=== PATIENT | male | born 1975 | race American Indian/Alaskan Native ===

== ENCOUNTER 2022-02-28 19:24 | Inpatient (IN) | payer SELFPAY ==
--- NOTE | 2022-02-28 19:28 | Emergency Department Report ---
HPI - HPI HPI: Room 4 Patient is a 48-year-old male present with chief complaint of altered mental status. Per EMS family found the patient unresponsive on his bedroom floor. EMS was called to find the patient unresponsive and hypoglycemic with a glucose of 25. Patient was administered D50 and 4 mg of Narcan. Patient became arousable and slightly combative requiring physical restraints. EMS states the family reports the patient has a history of drug abuse ED Past Medical Hx - Surgical History Hx Open Heart Surgery: Yes - Family History Family history: no significant - Social History Smoking Status: Unknown if ever smoked ED Review of Systems ROS: Stated complaint: unresponsive Other details as noted in HPI Comment: Unobtainable due to pts medical conditions Physical Exam - Physical Exam Physical Exam: GENERAL: The patient is well-developed well-nourished male on stretcher appearing confused moving all 4 extremities requiring restraint by EMS and nursing. [] HEENT: Normocephalic. Atraumatic. Pupils 2 mm bilaterally NECK: Supple. No meningitic signs are noted. There is no adenopathy noted. CHEST/LUNGS: Clear to auscultation. There is no respiratory distress noted. HEART/CARDIOVASCULAR: Regular. There is tachycardia. There is no gallop rub or murmur. ABDOMEN: Abdomen is soft, nontender. Patient has normal bowel sounds. There is no abdominal distention. SKIN: There is no rash. There is no edema. There is no diaphoresis. NEURO: The patient is confused with mumbling speech and appears agitated requiring restraints by staff MUSCULOSKELETAL: There is no evidence of acute injury. ED Course - Reevaluation(s) Reevaluation #1: 02/28/22 21:24 Patient's SPO2 decreased from 94% on a nonrebreather to mid 80s on nonrebreather. There is no change with Narcan. Subsequently the decision to intubate using RSI was made - Intubation Sedative: Etomidate Mg Given: 20 Paralytic: Succinylcholine Mg Given: 100 Laryngoscope: fiberoptic video scope Size: 3 Assist Device Used: fiberoptic device ET Tube Size: 8 Tube Secured Depth (cm): 24 Tube Secured Location: lips Tube Placement Confirmation: visualized tube passing t, equal breath sounds bilat, no breath sounds over epi, confirmation by capnometr Patient Tolerated Procedure: well, no complications Intubation Complications: none ED Medical Decision Making - Lab Data Result diagrams: 02/28/22 19:20 02/28/22 19:20 Laboratory Tests 02/28/22 02/28/22 02/28/22 19:20 19:20 19:20 WBC 10.3 RBC 4.15 Hgb 14.5 Hct 43.4 MCV 105 H MCH 35 H MCHC 33 RDW 16.9 H Plt Count 466 H Lymph % (Auto) 9.2 L Whiteside % (Auto) 7.0 Eos % (Auto) 0.2 Baso % (Auto) 0.2 Lymph # (Auto) 0.9 L Whiteside # (Auto) 0.7 Eos # (Auto) 0.0 Baso # (Auto) 0.0 Seg Neutrophils % 83.4 H Seg Neutrophils # 8.6 H PT 13.0 INR 0.89 D-Dimer ABG pH ABG pCO2 ABG pO2 ABG HCO3 ABG O2 Saturation ABG O2 Content ABG Base Excess ABG Hemoglobin ABG Carboxyhemoglobin ABG Methemoglobin Oxyhemoglobin FiO2 Sodium 135 L Potassium 4.7 Chloride 93.6 L Carbon Dioxide 16 L Anion Gap 30 BUN 19 Creatinine 1.7 H Estimated GFR 43 BUN/Creatinine Ratio 11 Glucose 132 H Calcium 8.8 Total Bilirubin 0.30 AST 295 H ALT 48 Alkaline Phosphatase 189 H Total Creatine Kinase CK-MB (CK-2) CK-MB (CK-2) Rel Index Troponin T 0.055 H Total Protein 7.8 Albumin 4.5 Albumin/Globulin Ratio 1.4 Triglycerides 141 Cholesterol 170 LDL Cholesterol Direct 89 HDL Cholesterol 70 H Cholesterol/HDL Ratio 2.42 TSH Free T4 Salicylates Acetaminophen Urine Cocaine Screen Plasma/Serum Alcohol 02/28/22 02/28/22 02/28/22 19:20 19:20 19:20 WBC RBC Hgb Hct MCV MCH MCHC RDW Plt Count Lymph % (Auto) Whiteside % (Auto) Eos % (Auto) Baso % (Auto) Lymph # (Auto) Whiteside # (Auto) Eos # (Auto) Baso # (Auto) Seg Neutrophils % Seg Neutrophils # PT INR D-Dimer ABG pH ABG pCO2 ABG pO2 ABG HCO3 ABG O2 Saturation ABG O2 Content ABG Base Excess ABG Hemoglobin ABG Carboxyhemoglobin ABG Methemoglobin Oxyhemoglobin FiO2 Sodium Potassium Chloride Carbon Dioxide Anion Gap BUN Creatinine Estimated GFR BUN/Creatinine Ratio Glucose Calcium Total Bilirubin AST ALT Alkaline Phosphatase Total Creatine Kinase CK-MB (CK-2) CK-MB (CK-2) Rel Index Troponin T Total Protein Albumin Albumin/Globulin Ratio Triglycerides Cholesterol LDL Cholesterol Direct HDL Cholesterol Cholesterol/HDL Ratio TSH 1.100 Free T4 1.06 Salicylates < 0.3 L Acetaminophen Urine Cocaine Screen Plasma/Serum Alcohol < 0.01 02/28/22 02/28/22 02/28/22 19:20 20:00 22:00 WBC RBC Hgb Hct MCV MCH MCHC RDW Plt Count Lymph % (Auto) Whiteside % (Auto) Eos % (Auto) Baso % (Auto) Lymph # (Auto) Whiteside # (Auto) Eos # (Auto) Baso # (Auto) Seg Neutrophils % Seg Neutrophils # PT INR D-Dimer ABG pH 7.170 L* ABG pCO2 61.5 ABG pO2 392.6 H ABG HCO3 22.0 ABG O2 Saturation 99.5 H ABG O2 Content 22.1 ABG Base Excess -7.6 L ABG Hemoglobin 15.8 ABG Carboxyhemoglobin 3.8 ABG Methemoglobin 0.7 Oxyhemoglobin 95.1 FiO2 100 Sodium Potassium Chloride Carbon Dioxide Anion Gap BUN Creatinine Estimated GFR BUN/Creatinine Ratio Glucose Calcium Total Bilirubin AST ALT Alkaline Phosphatase Total Creatine Kinase 395 H CK-MB (CK-2) 10.3 H CK-MB (CK-2) Rel Index 2.6 Troponin T Total Protein Albumin Albumin/Globulin Ratio Triglycerides Cholesterol LDL Cholesterol Direct HDL Cholesterol Cholesterol/HDL Ratio TSH Free T4 Salicylates Acetaminophen 5.0 L Urine Cocaine Screen Plasma/Serum Alcohol 02/28/22 02/28/22 Unknown Unknown WBC RBC Hgb Hct MCV MCH MCHC RDW Plt Count Lymph % (Auto) Whiteside % (Auto) Eos % (Auto) Baso % (Auto) Lymph # (Auto) Whiteside # (Auto) Eos # (Auto) Baso # (Auto) Seg Neutrophils % Seg Neutrophils # PT INR D-Dimer 649.01 H ABG pH ABG pCO2 ABG pO2 ABG HCO3 ABG O2 Saturation ABG O2 Content ABG Base Excess ABG Hemoglobin ABG Carboxyhemoglobin ABG Methemoglobin Oxyhemoglobin FiO2 Sodium Potassium Chloride Carbon Dioxide Anion Gap BUN Creatinine Estimated GFR BUN/Creatinine Ratio Glucose Calcium Total Bilirubin AST ALT Alkaline Phosphatase Total Creatine Kinase CK-MB (CK-2) CK-MB (CK-2) Rel Index Troponin T Total Protein Albumin Albumin/Globulin Ratio Triglycerides Cholesterol LDL Cholesterol Direct HDL Cholesterol Cholesterol/HDL Ratio TSH Free T4 Salicylates Acetaminophen Urine Cocaine Screen Presumptive positive Plasma/Serum Alcohol - EKG Data -: EKG Interpreted by Me EKG shows normal: sinus rhythm, axis Rate: tachycardia (100 beats per) - EKG Data When compared to previous EKG there are: previous EKG unavailable Interpretation: nonspecific ST-T wave melanie (Flattened T waves lead aVL) - Radiology Data Radiology results: pending (VQ scan, CT head), report reviewed (Chest x-ray #1, chest x-ray #2), image reviewed (Chest x-ray #1, chest x-ray #2) interpreted by me: Chest x-ray-no definite focal infiltrates, no pneumothorax Chest x-ray #2-ET tube in appropriate position. No pneumothorax, no focal infiltrate [address] [address] XRay Report Signed Patient: Mike Rincon MR#: [id number] 90 : 01/17/1974 Acct:[id number] Age/Sex: 48 / M ADM Date: 02/28/22 Loc: ED Attending Dr: Ordering Physician: ZUNILDA PAYNE MD Date of Service: 02/28/22 Procedure(s): XR chest 1V ap Accession Number(s): [id number] cc: ZUNILDA PAYNE MD Fluoro Time In Minutes: CHEST 1 VIEW 02/28/2022 6:41 PM INDICATION / CLINICAL INFORMATION: Hypoxia. Unresponsive. COMPARISON: None available. FINDINGS: SUPPORT DEVICES: N one. HEART / MEDIASTINUM: Heart is normal size. Median sternotomy wires are present. LUNGS / PLEURA: No significant pulmonary or pleural abnormality. No pneumothorax. ADDITIONAL FINDINGS: No significant additional findings. IMPRESSION: 1. No acute findings. Signer Name: Eligio Bloom MD Signed: 09/2022 7:42 PM Workstation Name: [id number] Transcribed By: DT Dictated By: Axel Bloom MD Electronically Authenticated By: Axel Bloom MD Signed Date/Time: 02/28/221941 DD/ 40 TD/TT: [address] [address] XRay Report Signed Patient: Mike Rincon MR#: [id number] 90 : 01/17/1974 Acct:[id number] Age/Sex: 48 / M ADM Date: 02/28/22 Loc: ED Attending Dr: Ordering Physician: ZUNILDA PAYNE MD Date of Service: 02/28/22 Procedure(s): XR chest 1V ap Accession Number(s): [id number] cc: ZUNILDA PAYNE MD Fluoro Time In Minutes: CHEST 1 VIEW 02/28/2022 9:28 PM INDICATION / CLINICAL INFORMATION: S/p intubation. COMPARISON: 02/28/22 7:27 PM FINDINGS: SUPPORT DEVICES: Endotracheal tube has been placed with the tip 6 cm above the francisca. HEART / MEDIASTINUM: No acute abnormality. Median sternotomy wires are unchanged. LUNGS / PLEURA: No significant pulmonary or pleural abnormality. No pneumothorax. ADDITIONAL FINDINGS: No significant additional findings. IMPRESSION: 1. Endotracheal tube in expected position. Signer Name: Eligio Bloom MD Signed: 02/28/2022 9:41 PM Workstation Name: [id number] Transcribed By: DT Dictated By: Axel Bloom MD Electronically Authenticated By: Axel Bloom MD Signed Date/Time: 02/28/222140 DD/ 40 TD/TT: - Differential Diagnosis AMS, ICH, intoxication, overdose Critical care attestation.: If time is entered above; I have spent that time in minutes in the direct care of this critically ill patient, excluding procedure time. ED Disposition Clinical Impression: Altered mental status, Respiratory failure, Hypoxia, Cocaine abuse Disposition: ADMITTED INPATIENT Is pt being admited?: Yes Does the pt Need Aspirin: Yes Condition: Undetermined Referrals: AHMET SAN MD [Primary Care Provider] - 3-5 Days Time of Disposition: 23:53 (Case discussed with hospitalist (Dr Wright))
[2022-02-28 19:40] LABS: Basophils % (Auto) 0.2 % (0.0-1.8); Eosinophils % (Auto) 0.2 % (0.0-4.3); Hematocrit 43.4 % (35.5-45.6); Hemoglobin 14.5 gm/dl (11.8-15.2); Lymphocytes # (Auto) 0.9 K/mm3 (1.2-5.4); Lymphocytes % (Auto) 9.2 % (13.4-35.0); Mean Corpuscular HGB Conc 33 % (32-34); Mean Corpuscular Volume 105 fl (84-94); Monocytes # (Auto) 0.7 K/mm3 (0.0-0.8); Platelet Count 466 K/mm3 (140-440); Red Blood Count 4.15 M/mm3 (3.65-5.03); Red Cell Distribution Width 16.9 % (13.2-15.2)
--- NOTE | 2022-02-28 19:47 | XRay Report ---
CHEST 1 VIEW 02/28/2022 6:41 PM INDICATION / CLINICAL INFORMATION: Hypoxia. Unresponsive. COMPARISON: None available. FINDINGS: SUPPORT DEVICES: None. HEART / MEDIASTINUM: Heart is normal size. Median sternotomy wires are present. LUNGS / PLEURA: No significant pulmonary or pleural abnormality. No pneumothorax. ADDITIONAL FINDINGS: No significant additional findings. IMPRESSION: 1. No acute findings. Signer Name: Eligio Bloom MD Signed: 02/28/2022 7:42 PM Workstation Name: [id number]
[2022-02-28 19:50] LABS: INR 0.89 (0.87-1.13)
[2022-02-28 19:56] LABS: Albumin 4.5 g/dL (3.9-5); Calcium 8.8 mg/dL (8.4-10.2)
[2022-02-28 20:04] LABS: Free T4 (Free Thyroxine) 1.06 ng/dL (0.76-1.46)
[2022-02-28 20:16] LABS: Chol/HDL Ratio 2.42 %
[2022-02-28 20:16] LABS: Creatine Kinase MB 10.3 ng/mL (0.0-4.0)
[2022-02-28] MEDS ORDERED: LIDOCAINE PF 100 MG/5 ML (CARDIAC SYRINGE) IV ONE (21:13)
[2022-02-28] MEDS ORDERED: ETOMIDATE 20 MG/10 ML INJ IV ONE ×2 (21:14→21:15)
[2022-02-28] MEDS ORDERED: SUCCINYLCHOLINE CHLORIDE 200 MG/10 ML INJ MDV IV ONE (21:15)
[2022-02-28] MEDS ORDERED: SUCCINYLCHOLINE CHLORIDE 200 MG/10 ML INJ MDV ONE (21:15)
[2022-02-28] MEDS ORDERED: ROCURONIUM 50 MG/5 ML INJ IV ONE (21:15)
--- NOTE | 2022-02-28 21:46 | XRay Report ---
CHEST 1 VIEW 02/28/2022 9:28 PM INDICATION / CLINICAL INFORMATION: S/p intubation. COMPARISON: 02/28/22 7:27 PM FINDINGS: SUPPORT DEVICES: Endotracheal tube has been placed with the tip 6 cm above the francisca. HEART / MEDIASTINUM: No acute abnormality. Median sternotomy wires are unchanged. LUNGS / PLEURA: No significant pulmonary or pleural abnormality. No pneumothorax. ADDITIONAL FINDINGS: No significant additional findings. IMPRESSION: 1. Endotracheal tube in expected position. Signer Name: Eligio Bloom MD Signed: 02/28/2022 9:41 PM Workstation Name: [id number]
[2022-02-28 22:09] LABS: ABG Base Excess -7.6 mmol/L (-2.0-3.0); ABG Methemoglobin 0.7 % (0.0-1.5); ABG Oxygen Saturation 99.5 % (95.0-99.0); ABG PCO2 61.5 mm Hg
[2022-02-28 22:20] LABS: ABG PH 7.17 pH Units (7.350-7.450); ABG PO2 392.6 mm Hg (80.0-90.0)
[2022-02-28 23:27] LABS: Amphetamine Screen,Urine PRESUMPTIVE NEGATIVE; Benzodiazepines Screen,Urine PRESUMPTIVE NEGATIVE; Cannabinoid Screen,Urine PRESUMPTIVE NEGATIVE; Cocaine Screen,Urine PRESUMPTIVE POSITIVE; Methadone Screen,Urine PRESUMPTIVE NEGATIVE; Opiate Screen,Urine PRESUMPTIVE NEGATIVE
[2022-02-28] MEDS ORDERED: LORazepam 2 MG/ML VIAL IV ONE (23:29)
[2022-02-28] MEDS ORDERED: MIDAZOLAM 2 MG/2 ML INJ IV PRN (23:30)
[2022-02-28] MEDS ORDERED: MIDAZOLAM/NS Drip 100mg/100ml 100 MG/100 ML BAG IV SCH (23:45)
[2022-02-28 23:52] LABS: ABG Base Excess -8.3 mmol/L (-2.0-3.0); ABG HCO3 18.5 mmol/L (20.0-26.0); ABG Methemoglobin 0.7 % (0.0-1.5); ABG PCO2 42.6 mm Hg; ABG PH 7.255 pH Units (7.350-7.450); ABG PO2 119.5 mm Hg (80.0-90.0)
[2022-03-01] MEDS ORDERED: ACETAMINOPHEN 650 MG RECT SUPP PR PRN (00:07)
[2022-03-01] MEDS ORDERED: MORPHINE 2 MG/1 ML INJ IV PRN (00:07)
[2022-03-01] MEDS ORDERED: ONDANSETRON 4 MG/2 ML INJ IV PRN (00:07)
[2022-03-01] MEDS ORDERED: MORPHINE 4 MG/1 ML INJ IV PRN (00:07)
[2022-03-01] MEDS ORDERED: MAGNESIUM HYDROXIDE (MOM) ORAL LIQD UDC PO PRN (00:07)
--- NOTE | 2022-03-01 00:20 | History and Physical Report ---
History of Present Illness Date of examination: 03/01/22 Date of admission: 03/01/2022 Chief complaint: Altered mental status History of present illness: 47-year-old male with no significant past medical history brought into the emergency room today via EMS for changes in mental status. Patient was said to have been found by family at home unresponsive. EMS was therefore called. Blood glucose was found to be 25, patient was admitted D50 and Narcan 4 mg. Patient became more arousable and combative. According to family, patient has known history of drug abuse. Upon arrival in the emergency room, patient was found to be febrile back with and had to be restrained. Patient later became hypoxic and placed on nonrebreather and subsequently had to be intubated. Work-up in the emergency room today, labs reveals a D-dimer 649, creatinine of 1.7, troponin of 0.055, UDS was positive for cocaine. Chest x-ray was unremarkable. Head CT scan also unremarkable. VQ scan was low probability for pulmonary embolism. Past History Past Medical History: No medical history Past Surgical History: No surgical history Social history: other (History of cocaine abuse) Family history: no significant family history Medications and Allergies Allergies Allergy/AdvReac Type Severity Reaction Status Date / Time No Known Allergies Allergy Verified 02/28/22 21:15 Active Meds: Active Medications MIDAZOLAM/NS Drip 100mg/100ml (Midazolam/Ns Drip 100mg/100ml) 100 mg in 100 mls @ 1 mls/hr IV TITR MARTINEZ; Protocol Midazolam HCl (Midazolam 2 Mg/2 Ml Inj) 2 mg IV Q10MIN PRN PRN Reason: Sedation Last Admin: 02/28/22 23:35 Dose: 2 mg Review of Systems ROS unobtainable: due to mental status Exam - Constitutional Vitals: Temp Pulse Resp BP Pulse Ox 98 H 26 H 138/98 99 02/28/22 22:30 02/28/22 22:30 02/28/22 22:30 02/28/22 22:30 General appearance: Present: other (Intubated and sedated) - EENT Eyes: Present: PERRL, EOM intact. Absent: scleral icterus ENT: hearing intact, clear oral mucosa, dentition normal - Neck Neck: Present: supple, normal ROM - Respiratory Respiratory effort: normal, other (Currently intubated and sedated) Respiratory: bilateral: CTA - Cardiovascular Rhythm: regular Heart Sounds: Present: S1 & S2. Absent: gallop, systolic murmur, diastolic murmur, rub, click - Extremities Extremities: no ischemia, pulses intact, pulses symmetrical, No edema, normal temperature, Full ROM Peripheral Pulses: within normal limits - Abdominal General gastrointestinal: Present: soft, non-tender, non-distended, normal bowel sounds. Absent: mass - Integumentary Integumentary: Present: clear, warm, dry, normal turgor. Absent: rash - Musculoskeletal Musculoskeletal: other (Intubated sedated) - Psychiatric Psychiatric: cooperative - Neurologic Neurologic: other (Intubated and sedated) HEART Score - HEART Score Troponin: Troponin T 0.055 ng/mL (0.00-0.029) H 02/28/22 19:20 Results - Labs CBC & Chem 7: 02/28/22 19:20 02/28/22 19:20 Labs: Abnormal lab results 02/28/22 02/28/22 02/28/22 Range/Units 19:20 19:20 19:20 MCV 105 H (84-94) fl MCH 35 H (28-32) pg RDW 16.9 H (13.2-15.2) % Plt Count 466 H (140-440) K/mm3 Lymph % (Auto) 9.2 L (13.4-35.0) % Lymph # (Auto) 0.9 L (1.2-5.4) K/mm3 Seg Neutrophils % 83.4 H (40.0-70.0) % Seg Neutrophils # 8.6 H (1.8-7.7) K/mm3 D-Dimer (0-234) ng/mlDDU ABG pH (7.350-7.450) pH Units ABG pO2 (80.0-90.0) mm Hg ABG HCO3 (20.0-26.0) mmol/L ABG O2 Saturation (95.0-99.0) % ABG Base Excess (-2.0-3.0) mmol/L Oxyhemoglobin (95.0-99.0) % Sodium 135 L (137-145) mmol/L Chloride 93.6 L (98-107) mmol/L Carbon Dioxide 16 L (22-30) mmol/L Creatinine 1.7 H (0.8-1.3) mg/dL Glucose 132 H (75-100) mg/dL AST 295 H (5-40) units/L Alkaline Phosphatase 189 H (35-129) units/L Total Creatine Kinase (55-170) units/L CK-MB (CK-2) (0.0-4.0) ng/mL Troponin T 0.055 H (0.00-0.029) ng/mL HDL Cholesterol 70 H (40-59) mg/dL Salicylates < 0.3 L (2.8-20.0) mg/dL Acetaminophen (10.0-30.0) ug/mL 02/28/22 02/28/22 02/28/22 Range/Units 19:20 20:00 22:00 MCV (84-94) fl MCH (28-32) pg RDW (13.2-15.2) % Plt Count (140-440) K/mm3 Lymph % (Auto) (13.4-35.0) % Lymph # (Auto) (1.2-5.4) K/mm3 Seg Neutrophils % (40.0-70.0) % Seg Neutrophils # (1.8-7.7) K/mm3 D-Dimer (0-234) ng/mlDDU ABG pH 7.170 L* (7.350-7.450) pH Units ABG pO2 392.6 H (80.0-90.0) mm Hg ABG HCO3 (20.0-26.0) mmol/L ABG O2 Saturation 99.5 H (95.0-99.0) % ABG Base Excess -7.6 L (-2.0-3.0) mmol/L Oxyhemoglobin (95.0-99.0) % Sodium (137-145) mmol/L Chloride (98-107) mmol/L Carbon Dioxide (22-30) mmol/L Creatinine (0.8-1.3) mg/dL Glucose (75-100) mg/dL AST (5-40) units/L Alkaline Phosphatase (35-129) units/L Total Creatine Kinase 395 H (55-170) units/L CK-MB (CK-2) 10.3 H (0.0-4.0) ng/mL Troponin T (0.00-0.029) ng/mL HDL Cholesterol (40-59) mg/dL Salicylates (2.8-20.0) mg/dL Acetaminophen 5.0 L (10.0-30.0) ug/mL 02/28/22 02/28/22 Range/Units 23:40 Unknown MCV (84-94) fl MCH (28-32) pg RDW (13.2-15.2) % Plt Count (140-440) K/mm3 Lymph % (Auto) (13.4-35.0) % Lymph # (Auto) (1.2-5.4) K/mm3 Seg Neutrophils % (40.0-70.0) % Seg Neutrophils # (1.8-7.7) K/mm3 D-Dimer 649.01 H (0-234) ng/mlDDU ABG pH 7.255 L (7.350-7.450) pH Units ABG pO2 119.5 H (80.0-90.0) mm Hg ABG HCO3 18.5 L (20.0-26.0) mmol/L ABG O2 Saturation (95.0-99.0) % ABG Base Excess -8.3 L (-2.0-3.0) mmol/L Oxyhemoglobin 94.7 L (95.0-99.0) % Sodium (137-145) mmol/L Chloride (98-107) mmol/L Carbon Dioxide (22-30) mmol/L Creatinine (0.8-1.3) mg/dL Glucose (75-100) mg/dL AST (5-40) units/L Alkaline Phosphatase (35-129) units/L Total Creatine Kinase (55-170) units/L CK-MB (CK-2) (0.0-4.0) ng/mL Troponin T (0.00-0.029) ng/mL HDL Cholesterol (40-59) mg/dL Salicylates (2.8-20.0) mg/dL Acetaminophen (10.0-30.0) ug/mL Assessment and Plan - Patient Problems (1) Altered mental status Current Visit: Yes Status: Acute Plan to address problem: Etiology is unclear. Possibly secondary to drug abuse. Will monitor mental status. Patient currently intubated and sedated. (2) Cocaine abuse Current Visit: Yes Status: Acute Plan to address problem: Patient has known history of cocaine abuse. Will counseling center manager against illicit drug use prior to discharge. (3) Respiratory failure Current Visit: Yes Status: Acute Plan to address problem: Patient was found to be hypoxic upon arrival in the emergency room. He was subsequently intubated and sedated. Will await further evaluation by superintendent seed mill. We will continue to monitor oxygen saturation and ABG. (4) TABATHA (acute kidney injury) Current Visit: Yes Status: Acute Plan to address problem: Will continue on IV fluid hydration and monitor chemistry. (5) DVT prophylaxis Current Visit: Yes Status: Acute Plan to address problem: Patient placed on subcutaneous heparin. (6) Full code status Current Visit: Yes Status: Acute Plan to address problem: Patient is full code.
--- NOTE | 2022-03-01 00:28 | Nuclear Medicine Report ---
NUCLEAR MEDICINE PERFUSION LUNG SCAN INDICATION / CLINICAL INFORMATION: Hypoxia. TECHNIQUE: 5.2 mCi of Tc-99m MAA were given by IV. COMPARISON: Chest radiograph dated 02/28/2022. FINDINGS: PERFUSION: No significant perfusion defects. ADDITIONAL FINDINGS: None. IMPRESSION: 1. Low probability for pulmonary embolism. Signer Name: Juanito Eagle DO Signed: 03/01/2022 12:23 AM Workstation Name: [id number]
--- NOTE | 2022-03-01 01:17 | Cat Scan Report ---
CT HEAD WITHOUT CONTRAST INDICATION / CLINICAL INFORMATION: Altered Mental Status. TECHNIQUE: All CT scans at this location are performed using CT dose reduction for ALARA by means of automated exposure control. COMPARISON: None available. FINDINGS: HEMORRHAGE: None. EXTRA-AXIAL SPACES: Normal in size and morphology for the patient's age. VENTRICULAR SYSTEM: Normal in size and morphology for the patient's age. CEREBRAL PARENCHYMA: No significant abnormality. No acute territorial infarct. MIDLINE SHIFT / HERNIATION: None. CEREBELLUM / BRAINSTEM: No significant abnormality. ORBITS: Normal as visualized SOFT TISSUES: No significant abnormality. SKULL: No significant abnormality. PARANASAL SINUSES / MASTOID AIR CELLS: Normal as visualized ADDITIONAL FINDINGS: None. IMPRESSION: 1. No acute intracranial abnormality. Signer Name: Juanito Eagle DO Signed: 03/01/2022 1:13 AM Workstation Name: [id number]
[2022-03-01] MEDS: SODIUM CHLORIDE 0.9% 1000 ML 1,000 ML IV SCH ×2 (03:05→10:23)
[2022-03-01] MEDS ORDERED: fentaNYL 100 MCG/2 ML INJ IV PRN (07:49)
[2022-03-01] MEDS ORDERED: fentaNYL DRIP Premix 2,000 MCG/100 ML BAG IV SCH (08:00)
[2022-03-01 08:31] LABS: ABG HCO3 19.3 mmol/L (20.0-26.0); ABG Methemoglobin 0.6 % (0.0-1.5); ABG PCO2 37.3 mm Hg; ABG PH 7.331 pH Units (7.350-7.450); ABG PO2 79.7 mm Hg (80.0-90.0)
[2022-03-01] MEDS ORDERED: DEXTROSE 50% IN WATER (25GM) 50 ML SYRINGE IV PRN (09:03)
--- NOTE | 2022-03-01 09:29 | XRay Report ---
CHEST 1 VIEW 03/01/2022 8:18 AM INDICATION / CLINICAL INFORMATION: Respiratory Failure-Intubated. COMPARISON: 02/28/2022 FINDINGS: SUPPORT DEVICES: Stable, satisfactory device positioning. HEART / MEDIASTINUM: Stable. LUNGS / PLEURA: No significant pulmonary or pleural abnormality. No pneumothorax. ADDITIONAL FINDINGS: No significant additional findings. IMPRESSION: 1. No acute findings. Signer Name: Mateo Waggoner MD Signed: 03/01/2022 9:25 AM Workstation Name: [id number]
[2022-03-01] MEDS: FAMOTIDINE 20 MG/2 ML INJ IV SCH (09:43)
[2022-03-01 10:16] LABS: Creatine Kinase MB 14.2 ng/mL (0.0-4.0)
--- NOTE | 2022-03-01 10:16 | Event Note ---
<JUANITO CURTIS - Last Filed: 03/01/22 14:36> Date: 03/01/22 This is a 47-year-old male with history of drug abuse and possible open heart surgery 25 years admitted for AMS and acute hypoxic respiratory failure requiring ventilatory support Patient seen and examined at the bedside. Intubated, off sedation this am. Remains lethargic but arousable, following simple commands. Keep sedation off for now, plan for possible PSV trial when more awake. Patient hypoglycemic this am, IVF switched to D5NS, BG check Q4hrs. Elevated TroponinX2, Cardiology c onsulted for NSTEMI, continue to trend cardiac enzymes. Nephrology is also following for TABATHA, continue IVF rehydration for now. Assessment and Plan #Acute Hypoxic Respiratory Failure - most likely due to drug abuse, found unresponsive at home, UDS +cocaine - Patient was hypoxic in the ED, SPO2 in the 80s on NRB - Intubated in the ED on 03/01 - Vent setting:PRVC-40%, 8,26,450 - AM ABG noted - CCM consulted, appreciate recommendations - VAP bundle addressed - Aspiration precaution HOB above 30 - Daily SBT and SAT trials as tolerated - Daily ABG and CXR - Continue SPO2 monitoring for SPO2 goal above 92% #Acute Toxic Encephalopathy #Cocaine Abuse - Found unresponsive at home by family - UDS +cocaine - CT Brain/brain with no acute intracranial abnormality. - Patient now intubated, off sedation. Arousable and following commands - Plan for PSV trial once more awake - Keep sedation off for now - Avoid benzodiazepine to reduce the possibility of delirium - PRN analgesia for CPOT greater than 3 - Maintenance of sleep-wake cycle #NSTEMI - Presented with elevated troponin - EKG reviewed with ST, HR in the 100s, no significant ST changes - Cardiology consulted - Continue to trend cardiac enzyme - Continue Heparin SubQ for VTE proh #Acute Kidney Injury(TABATHA) #Hyponatremia - Vasomotor Nephropathy vs pre-renal - Nephrology consulted, appreciated recommendations - Urine lytes pending - Continue current IVF rehydration - Strict intake and output - Avoid nephrotoxic medications; Renally dose medications - Monitor and replace electrolytes as needed #Hypoglycemia - Per EMS BG was in the 20s in the field s/p D50w - Patient still hypoglycemic this am - IVF switched to D5NS - Continue Hypoglycemic protocol - BG check Q4hrs - if patient not extubated today, will initiate enteral nutrition - Avoid hypoglycemia #Elevated D-Dimer - VQ scan was low probability for pulmonary embolism - Heparin subQ for VTE proph #GI/DVT Prophylaxis - PPI- Pepcid - Heparin subQ - SCDs to bilateral lower extremities while in bed <CRISTOPHER KERN - Last Filed: 03/02/22 08:34> I saw and evaluated the patient. I agree with the findings and the plan of care as documented in the Nurse Practitioner's~note, with the following corrections and additions.
[2022-03-01 10:17] LABS: Calcium 8.6 mg/dL (8.4-10.2)
--- NOTE | 2022-03-01 11:16 | Consultation ---
History of Present Illness - History of Present Illness Thank you for the consultation ! Patient was evaluated today, My assessment and plan are as follows #Renal failure in a patient who is being admitted here with altered mental status hypoglycemia metabolic acidosis and urine drug screen positive for cocaine etiology of renal failure appears to be complex, needs full work-up for renal failure there is no urgent or emergent indication for renal placement therapy, #Metabolic acidosis appears to be correcting we will check lactic acid level as well as osmolality, #Hypoglycemia of unclear etiology, work-up in progress, urine drug screen was positive for cocaine, If you have any question in regards to this patient renal care please feel free to contact me at [phone] Author: Jose F Rodrigez M.D. [facility], [address] [place] [address] Tel; [phone] [facility] History of present illness Patient is a 47-year-old male who has been admitted here with altered mental status and was found unresponsive on the bathroom floor, noted to be hypoglycemic with a blood sugar of 25, patient did arouse with IV dextrose given upon admission was noted to have a creatinine 1.7 bicarbonate 16 sodium 135, as of today patient's creatinine is 1.8 stable bicarbonate is much better at 19, troponin is elevated at 0.055 with borderline elevation of the CK which is 979, ABG pH is 7.3 with a PO2 of 79 bicarbonate 19 Past medical history: Current allergies: Reviewed from the current chart Social history: Reviewed from the current chart Family history: Reviewed from the current chart Review of system: Positive for All other review of systems negative Physical examination Vitals: Reviewed General: No acute distress HEENT: Oral mucosa moist no pallor or icterus Neck: Supple without any JVD thyromegaly or nodular mass Chest: Clear to auscultation Heart: Regular rate and rhythm S1-S2 heard no S3-S4 Abdomen: Soft nontender, bowel sounds present no renal bruit no suprapubic masses no CVA tenderness noted Extremity: Minimal edema dry skin no peripheral cyanosis Endocrine: Thyroid not enlarged Psychiatric: No agitation and aggression noted Musculoskeletal: No joint effusion noted Labs and x-rays: Reviewed from this admission Past History Past Medical History: No medical history Past Surgical History: No surgical history Social history: other (History of cocaine abuse) Family history: no significant family history Medications and Allergies Allergies Allergy/AdvReac Type Severity Reaction Status Date / Time No Known Allergies Allergy Verified 02/28/22 21:15 Active Meds: Active Medications Acetaminophen (Acetaminophen 650 Mg Rect Supp) 650 mg [place] Q6H PRN PRN Reason: Pain MILD(1-3)/Fever >100.5/RAINEY Dextrose (Dextrose 50% In Water (25gm) 50 Ml Syringe) 50 ml IV Q30MIN PRN; Protocol PRN Reason: Hypoglycemia Last Admin: 03/01/22 09:18 Dose: 15 ml Famotidine (Famotidine 20 Mg/2 Ml Inj) 20 mg IV QDAY MARTINEZ Last Admin: 03/01/22 09:43 Dose: 20 mg Fentanyl (Fentanyl 100 Mcg/2 Ml Inj) 50 mcg IV Q10MIN PRN PRN Reason: ANALGESIA Heparin Sodium (Porcine) (Heparin 5,000 Unit/1 Ml Vial) 5,000 unit SUB-Q Q8HR MARTINEZ Propofol (Diprivan 10 Mg/Ml) 1,000 mg in 100 mls @ 1.362 mls/hr IV TITR MARTINEZ; Protocol Fentanyl Citrate (Fentanyl Drip Premix) 2,000 mcg in 100 mls @ 2.27 mls/hr IV TITR MARTINEZ; Protocol Dextrose/Sodium Chloride (D5ns) 1,000 mls @ 50 mls/hr IV DIRECT MARTINEZ Magnesium Hydroxide (Magnesium Hydroxide (Mom) Oral Liqd Udc) 30 ml PO Q4H PRN PRN Reason: Constipation Ondansetron HCl (Ondansetron 4 Mg/2 Ml Inj) 4 mg IV Q8H PRN PRN Reason: Nausea And Vomiting Sodium Chloride (Sodium Chloride 0.9% 10 Ml Flush Syringe) 10 ml IV BID [facility] Last Admin: 03/01/22 09:43 Dose: 10 ml Sodium Chloride (Sodium Chloride 0.9% 10 Ml Flush Syringe) 10 ml IV PRN PRN PRN Reason: LINE FLUSH Exam - Vital Signs Vital signs: Vital Signs Pulse Resp BP Pulse Ox 100 H 20 120/79 95 02/28/22 19:16 02/28/22 19:16 02/28/22 19:16 02/28/22 19:16 Results - Lab Results 02/28/22 19:20 03/01/22 09:42 Most recent lab results ABG pH 7.331 pH Units (7.350-7.450) L 05/13/22 08:18 ABG pCO2 37.3 mm Hg 03/01/22 08:18 ABG pO2 79.7 mm Hg (80.0-90.0) L 03/01/22 08:18 ABG HCO3 19.3 mmol/L (20.0-26.0) L 03/01/22 08:18 ABG O2 Saturation 96.0 % (95.0-99.0) 03/01/22 08:18 Calcium 8.6 mg/dL (8.4-10.2) 03/01/22 09:42
[2022-03-01 11:35] LABS: Uric Acid 10.5 mg/dL (3.5-7.6)
[2022-03-01] MEDS ORDERED: D5W/0.9% NACL 1,000 ML IV SCH (12:00)
[2022-03-01 12:05] LABS: Bacteria,Urine 1+ /HPF (Negative); Bilirubin,Urine NEG (Negative); Blood,Urine MOD (Negative); Color,Urine Yellow (Yellow); Hyaline Casts,Urine 18 /LPF; Mucus,Urine FEW /HPF; Urobilinogen,Urine < 2.0 mg/dL (<2.0)
--- NOTE | 2022-03-01 12:11 | Consultation ---
History of Present Illness Consult date: 03/01/22 Requesting physician: ZUNILDA PAYNE Reason for consult: other (Acute Hypoxemic Respiratory Failure; AMS) History of present illness: PULMONARY/CCM CONSULT NOTE (Full dictation # [id number]) Please see dictated notes for full details Past History Past Medical History: No medical history Past Surgical History: No surgical history Social history: other (History of cocaine abuse) Family history: no significant family history Medications and Allergies Allergies Allergy/AdvReac Type Severity Reaction Status Date / Time No Known Allergies Allergy Verified 02/28/22 21:15 Active Meds: Active Medications Acetaminophen (Acetaminophen 650 Mg Rect Supp) 650 mg [place] Q6H PRN PRN Reason: Pain MILD(1-3)/Fever >100.5/RAINEY Last Admin: 03/01/22 11:50 Dose: 650 mg Dextrose (Dextrose 50% In Water (25gm) 50 Ml Syringe) 50 ml IV Q30MIN PRN; Protocol PRN Reason: Hypoglycemia Last Admin: 03/01/22 09:18 Dose: 15 ml Famotidine (Famotidine 20 Mg/2 Ml Inj) 20 mg IV QDAY MARTINEZ Last Admin: 03/01/22 09:43 Dose: 20 mg Fentanyl (Fentanyl 100 Mcg/2 Ml Inj) 50 mcg IV Q10MIN PRN PRN Reason: ANALGESIA Heparin Sodium (Porcine) (Heparin 5,000 Unit/1 Ml Vial) 5,000 unit SUB-Q Q8HR MARTINEZ Propofol (Diprivan 10 Mg/Ml) 1,000 mg in 100 mls @ 1.362 mls/hr IV TITR MARTINEZ; Protocol Fentanyl Citrate (Fentanyl Drip Premix) 2,000 mcg in 100 mls @ 2.27 mls/hr IV TITR MARTINEZ; Protocol Dextrose/Sodium Chloride (D5ns) 1,000 mls @ 50 mls/hr IV DIRECT MARTINEZ Last Admin: 03/01/22 11:16 Dose: 50 mls/hr Magnesium Hydroxide (Magnesium Hydroxide (Mom) Oral Liqd Udc) 30 ml PO Q4H PRN PRN Reason: Constipation Ondansetron HCl (Ondansetron 4 Mg/2 Ml Inj) 4 mg IV Q8H PRN PRN Reason: Nausea And Vomiting Sodium Chloride (Sodium Chloride 0.9% 10 Ml Flush Syringe) 10 ml IV BID MARTINEZ Last Admin: 03/01/22 09:43 Dose: 10 ml Sodium Chloride (Sodium Chloride 0.9% 10 Ml Flush Syringe) 10 ml IV PRN PRN PRN Reason: LINE FLUSH Physical Examination Vital signs: Vital Signs Pulse Resp BP Pulse Ox 100 H 20 120/79 95 02/28/22 19:16 02/28/22 19:16 02/28/22 19:16 02/28/22 19:16 Results - Laboratory Findings CBC and BMP: 02/28/22 19:20 03/01/22 09:42 ABG ABG pH 7.331 pH Units (7.350-7.450) L 03/01/22 08:18 ABG pCO2 37.3 mm Hg 03/01/22 08:18 ABG pO2 79.7 mm Hg (80.0-90.0) L 03/01/22 08:18 ABG O2 Saturation 96.0 % (95.0-99.0) 03/01/22 08:18 PT/INR, D-dimer PT 13.0 Sec. (12.2-14.9) 02/28/22 19:20 INR 0.89 (0.87-1.13) 02/28/22 19:20 D-Dimer 649.01 ng/mlDDU (0-234) H 02/28/22 Unknown Abnormal lab findings: Abnormal Labs 02/28/22 02/28/22 02/28/22 19:20 19:20 19:20 MCV 105 H MCH 35 H RDW 16.9 H Plt Count 466 H Lymph % (Auto) 9.2 L Lymph # (Auto) 0.9 L Seg Neutrophils % 83.4 H Seg Neutrophils # 8.6 H D-Dimer ABG pH ABG pO2 ABG HCO3 ABG O2 Saturation ABG Base Excess Oxyhemoglobin Sodium 135 L Chloride 93.6 L Carbon Dioxide 16 L BUN Creatinine 1.7 H Glucose 132 H POC Glucose Uric Acid AST 295 H Alkaline Phosphatase 189 H Total Creatine Kinase CK-MB (CK-2) Troponin T 0.055 H HDL Cholesterol 70 H Urine WBC (Auto) Salicylates < 0.3 L Acetaminophen 02/28/22 02/28/22 02/28/22 19:20 20:00 22:00 MCV MCH RDW Plt Count Lymph % (Auto) Lymph # (Auto) Seg Neutrophils % Seg Neutrophils # D-Dimer ABG pH 7.170 L* ABG pO2 392.6 H ABG HCO3 ABG O2 Saturation 99.5 H ABG Base Excess -7.6 L Oxyhemoglobin Sodium Chloride Carbon Dioxide BUN Creatinine Glucose POC Glucose Uric Acid AST Alkaline Phosphatase Total Creatine Kinase 395 H CK-MB (CK-2) 10.3 H Troponin T HDL Cholesterol Urine WBC (Auto) Salicylates Acetaminophen 5.0 L 02/28/22 02/28/22 03/01/22 23:40 Unknown 08:18 MCV MCH RDW Plt Count Lymph % (Auto) Lymph # (Auto) Seg Neutrophils % Seg Neutrophils # D-Dimer 649.01 H ABG pH 7.255 L 7.331 L ABG pO2 119.5 H 79.7 L ABG HCO3 18.5 L 19.3 L ABG O2 Saturation ABG Base Excess -8.3 L -6.0 L Oxyhemoglobin 94.7 L 94.0 L Sodium Chloride Carbon Dioxide BUN Creatinine Glucose POC Glucose Uric Acid AST Alkaline Phosphatase Total Creatine Kinase CK-MB (CK-2) Troponin T HDL Cholesterol Urine WBC (Auto) Salicylates Acetaminophen 03/01/22 03/01/22 03/01/22 08:57 09:42 09:42 MCV MCH RDW Plt Count Lymph % (Auto) Lymph # (Auto) Seg Neutrophils % Seg Neutrophils # D-Dimer ABG pH ABG pO2 ABG HCO3 ABG O2 Saturation ABG Base Excess Oxyhemoglobin Sodium 134 L Chloride Carbon Dioxide 19 L BUN 25 H Creatinine 1.8 H Glucose POC Glucose 67 L Uric Acid 10.5 H AST Alkaline Phosphatase Total Creatine Kinase 979 H CK-MB (CK-2) 14.2 H Troponin T 0.055 H HDL Cholesterol Urine WBC (Auto) Salicylates Acetaminophen 03/01/22 11:17 MCV MCH RDW Plt Count Lymph % (Auto) Lymph # (Auto) Seg Neutrophils % Seg Neutrophils # D-Dimer ABG pH ABG pO2 ABG HCO3 ABG O2 Saturation ABG Base Excess Oxyhemoglobin Sodium Chloride Carbon Dioxide BUN Creatinine Glucose POC Glucose Uric Acid AST Alkaline Phosphatase Total Creatine Kinase CK-MB (CK-2) Troponin T HDL Cholesterol Urine WBC (Auto) 21.0 H Salicylates Acetaminophen
[2022-03-01 12:21] LABS: Creatinine,Urine 114.3 mg/dL (0.1-20.0)
[2022-03-01 12:57] LABS: Hepatitis B Surface Antigen Non-Reactive (Negative); Hepatitis C Virus Antibody Non-Reactive (NonReactive)
[2022-03-01 13:30] LABS: ABG Base Excess -5.4 mmol/L (-2.0-3.0); ABG Methemoglobin 0.8 % (0.0-1.5); ABG Oxygen Saturation 94.8 % (95.0-99.0); ABG PCO2 56.6 mm Hg; ABG PH 7.226 pH Units (7.350-7.450); ABG PO2 80.1 mm Hg (80.0-90.0)
--- NOTE | 2022-03-01 13:46 | Consultation ---
History of Present Illness Consult date: 03/01/22 Requesting physician: JUANITO CURTIS Consult reason: elevated troponin History of present illness: Patient is a 47-year-old male with an unknown past medical history who was brought to the ED yesterday after being found unresponsive at home. History is taken from chart due to patient being intubated. Per documentation family member found patient unresponsive EMS was called. Patient was found to have a blood glucose of 25. Patient was transferred to the hospital. In the ED patient was found to be hypoxic and intubated. Labs showed an elevated D-dimer, creatinine of 1.7, elevated troponin, and UDS was positive for cocaine. Patient is previously unknown to our practice. Cardiology is consulted for elevated troponin Past History Past Medical History: No medical history Past Surgical History: No surgical history Social history: other (History of cocaine abuse) Family history: no significant family history Medications and Allergies Allergies Allergy/AdvReac Type Severity Reaction Status Date / Time No Known Allergies Allergy Verified 02/28/22 21:15 Active Meds: Active Medications Acetaminophen (Acetaminophen 650 Mg Rect Supp) 650 mg [place] Q6H PRN PRN Reason: Pain MILD(1-3)/Fever >100.5/RAINEY Last Admin: 03/01/22 11:50 Dose: 650 mg Aspirin (Aspirin 81 Mg Tab Chew) 81 mg PO QDAY MARTINEZ Atorvastatin Calcium (Atorvastatin 40 Mg Tab) 40 mg PO QHS MARTINEZ Dextrose (Dextrose 50% In Water (25gm) 50 Ml Syringe) 50 ml IV Q30MIN PRN; Protocol PRN Reason: Hypoglycemia Last Admin: 03/01/22 09:18 Dose: 15 ml Famotidine (Famotidine 20 Mg/2 Ml Inj) 20 mg IV QDAY MARTINEZ Last Admin: 03/01/22 09:43 Dose: 20 mg Fentanyl (Fentanyl 100 Mcg/2 Ml Inj) 50 mcg IV Q10MIN PRN PRN Reason: ANALGESIA Heparin Sodium (Porcine) (Heparin 5,000 Unit/1 Ml Vial) 5,000 unit SUB-Q Q8HR MARTINEZ Propofol (Diprivan 10 Mg/Ml) 1,000 mg in 100 mls @ 1.362 mls/hr IV TITR MARTINEZ; Protocol Fentanyl Citrate (Fentanyl Drip Premix) 2,000 mcg in 100 mls @ 2.27 mls/hr IV TITR MARTINEZ; Protocol Dextrose/Sodium Chloride (D5ns) 1,000 mls @ 50 mls/hr IV DIRECT MARTINEZ Last Admin: 03/01/22 11:16 Dose: 50 mls/hr Levofloxacin/Dextrose (Levaquin 500mg/100ml) 500 mg in 100 mls @ 100 mls/hr IV Q24H MARTINEZ; Protocol Stop: 03/05/22 13:59 Magnesium Hydroxide (Magnesium Hydroxide (Mom) Oral Liqd Udc) 30 ml PO Q4H PRN PRN Reason: Constipation Ondansetron HCl (Ondansetron 4 Mg/2 Ml Inj) 4 mg IV Q8H PRN PRN Reason: Nausea And Vomiting Sodium Chloride (Sodium Chloride 0.9% 10 Ml Flush Syringe) 10 ml IV BID [facility] Last Admin: 03/01/22 09:43 Dose: 10 ml Sodium Chloride (Sodium Chloride 0.9% 10 Ml Flush Syringe) 10 ml IV PRN PRN PRN Reason: LINE FLUSH Review of Systems ROS unobtainable: due to endotracheal tube Physical Examination Vital Signs Pulse Resp BP Pulse Ox 100 H 20 120/79 95 02/28/22 19:16 02/28/22 19:16 02/28/22 19:16 02/28/22 19:16 General appearance: other (Intubated and sedated) HEENT: Positive: Normocephaly Cardiac: Positive: Reg Rate and Rhythm Lungs: Positive: Ventilated Respirations Neuro: Positive: Other (Unable to assess) Abdomen: Positive: Soft Skin: Negative: Rash, Suspicious Lesions, Ulceration Extremities: Present: upper extr. pulses. Absent: edema Results 02/28/22 19:20 03/01/22 09:42 Cardiac Enzymes 02/28/22 02/28/22 03/01/22 Range/Units 19:20 20:00 09:42 AST 295 H (5-40) units/L CK-MB (CK-2) 10.3 H 14.2 H (0.0-4.0) ng/mL Coagulation 02/28/22 Range/Units 19:20 PT 13.0 (12.2-14.9) Sec. INR 0.89 (0.87-1.13) Lipids 02/28/22 Range/Units 19:20 Triglycerides 141 (2-149) mg/dL Cholesterol 170 (50-199) mg/dL HDL Cholesterol 70 H (40-59) mg/dL Cholesterol/HDL Ratio 2.42 % CBC 02/28/22 Range/Units 19:20 WBC 10.3 (4.5-11.0) K/mm3 RBC 4.15 (3.65-5.03) M/mm3 Hgb 14.5 (11.8-15.2) gm/dl Hct 43.4 (35.5-45.6) % Plt Count 466 H (140-440) K/mm3 Lymph # (Auto) 0.9 L (1.2-5.4) K/mm3 [place] # (Auto) 0.7 (0.0-0.8) K/mm3 Eos # (Auto) 0.0 (0.0-0.4) K/mm3 Baso # (Auto) 0.0 (0.0-0.1) K/mm3 Comprehensive Metabolic Panel 02/28/22 03/01/22 Range/Units 19:20 09:42 Sodium 135 L 134 L (137-145) mmol/L Potassium 4.7 4.8 (3.6-5.0) mmol/L Chloride 93.6 L 98.3 (98-107) mmol/L Carbon Dioxide 16 L 19 L (22-30) mmol/L BUN 19 25 H (9-20) mg/dL Creatinine 1.7 H 1.8 H (0.8-1.3) mg/dL Glucose 132 H 76 (75-100) mg/dL Calcium 8.8 8.6 (8.4-10.2) mg/dL AST 295 H (5-40) units/L ALT 48 (7-56) units/L Alkaline Phosphatase 189 H (35-129) units/L Total Protein 7.8 (6.3-8.2) g/dL Albumin 4.5 (3.9-5) g/dL - Imaging and Cardiology Echo: pending EKG interpretations - Telemetry EKG Rhythm: Sinus Tachycardia - EKG Sinus rhythms and dysrhythmias: sinus tachycardia Assessment and Plan Patient is a 47-year-old male with an unknown past medical history who was brought to the ED after being found unresponsive at home. AMS Acute respiratory failure-pulmonology following Hypoglycemia TABATHA-nephrology following minimally elevated troponin Cocaine abuse Plan: EKG shows sinus tachycardia rate 100. No acute ischemic changes Troponin noted to be minimally elevated and stable at 0.055 x2. Suspect troponin leak due to hypoglycemia, TABATHA, and cocaine abuse Initiate aspirin and Lipitor No metoprolol due to cocaine use No DEBI or ARB due to renal function Echo pending Patient seen in conjunction with Dr. Eugene who agrees with this plan of care - Patient Problems (1) Altered mental status Current Visit: Yes Status: Acute (2) Respiratory failure Current Visit: Yes Status: Acute (3) Hypoxia Current Visit: Yes Status: Acute (4) Cocaine abuse Current Visit: Yes Status: Acute (5) TABATHA (acute kidney injury) Current Visit: Yes Status: Acute
[2022-03-01] MEDS: HEPARIN 5,000 UNIT/1 ML VIAL SUB-Q SCH ×2 (13:50→22:30)
[2022-03-01] MEDS ORDERED: HALOPERIDOL LACTATE 5 MG/1 ML INJ IV PRN (13:57)
--- NOTE | 2022-03-01 15:29 | XRay Report ---
ABDOMEN 1 VIEW(S) INDICATION / CLINICAL INFORMATION: OGT placement. COMPARISON: None available. FINDINGS: TUBES / LINES: The sidehole of the nasogastric tube terminates in the distal esophagus just above the GE junction. Recommend advancement by 5 to 10 cm. There is a stent in the left upper quadrant spanni ng from approximately T12-L4 level. It is unclear what this is stenting. Please correlate with the pa tient's history. BOWEL GAS PATTERN: No significant abnormality. FREE AIR / EXTRALUMINAL GAS: None seen. ADDITIONAL FINDINGS: No significant additional findings. IMPRESSION: Recommend advancement of the nasogastric tube. Signer Name: Milton Camp Jr, MD Signed: 03/01/2022 3:24 PM Workstation Name: [id number]
[2022-03-01] MEDS: fentaNYL 100 MCG/2 ML INJ IV PRN (16:07)
--- NOTE | 2022-03-01 16:45 | XRay Report ---
XR abdomen 1V ap INDICATION: OGT placement. COMPARISON: None available. FINDINGS: The tip of the esophagogastric tube projects over the body of the stomach. Signer Name: Mateo Waggoner MD Signed: 03/01/2022 4:39 PM Workstation Name: [email or web address]
--- NOTE | 2022-03-01 17:43 | Vascular Lab Report ---
DUPLEX DOPPLER LOWER EXTREMITY VEINS, BILATERAL INDICATION / CLINICAL INFORMATION: elevated D-Dimer. TECHNIQUE: Duplex doppler imaging was performed through the veins of both lower extremities using derrick ous compression and other maneuvers. COMPARISON: None available. FINDINGS: RIGHT COMMON FEMORAL VEIN: Negative. RIGHT FEMORAL VEIN: Negative. RIGHT POPLITEAL VEIN: Negative. RIGHT CALF VEINS: Negative. LEFT COMMON FEMORAL VEIN: Negative. LEFT FEMORAL VEIN: Negative. LEFT POPLITEAL VEIN: Negative. LEFT CALF VEINS: Negative. ADDITIONAL FINDINGS: None. IMPRESSION: 1. No sonographic evidence for DVT in either lower extremity. Signer Name: Jorge Will MD Signed: 03/01/2022 5:39 PM Workstation Name: [id number]
[2022-03-02] MEDS: fentaNYL 100 MCG/2 ML INJ IV PRN (02:30)
--- NOTE | 2022-03-02 03:03 | Consultation ---
DATE OF CONSULTATION: 03/01/2022 PULMONARY CRITICAL CARE CONSULT NOTE CONSULTING PHYSICIAN: ____, Emergency Room physician. REASON FOR CONSULTATION: Acute hypoxemic respiratory failure, on mechanical ventilatory support. CHIEF COMPLAINT AND HISTORY OF PRESENT ILLNESS: The patient is a 47-year-old male with no past medical history according to the records brought into the Emergency Room with altered mental status. He was found by family at home unresponsive. [facility] found his blood glucose to be 25. On arrival, he was given D50 was given Narcan. He became arousable and combative and then again in the Emergency Room, he was found to be febrile. The family mentioned, he had a known history of drug abuse, the patient then became hypoxemic in the Emergency Room. A nonrebreather was placed and ultimately had to be intubated to maintain his oxygenation and ventilation. In the Emergency Room, he had an elevated serum creatinine and elevated troponin in the urine drug screen was positive for cocaine. A chest x-ray was described as unremarkable. He did have a slightly elevated D-dimer. V/Q scan was low probability. He was transferred to the critical care unit where I stopped by to see him. When I stopped by to see him, he was rested in bed, was on mechanical ventilator, assist control mode, PRVC, AC, tidal volumes I believe 450, rate of 26, PEEP was at 8 and he was down to 40% FiO2. I do not have any history of vomiting or overt aspiration, although he does have some infected looking oropharyngeal exudate. I do not have any history of seizures. I do not have any history of trauma. The patient's tobacco use/abuse history is unknown. The above is as much of the history of presentation as I have. PAST MEDICAL HISTORY: Unknown, cocaine abuse. PAST SURGICAL HISTORY: Unknown. He does have a scar from his sternal region all the way to the umbilicus. MEDICATIONS: He was on at the time I stopped by to see him, according to the medication administration record included the following: Tylenol 650 mg per rectum q.6 hours p.r.n. mild pain or fevers, dextrose half NS was going at 125 mL per hour, Pepcid 20 mg IV daily, fentanyl drip was also ordered, but was not running, heparin 5000 units subcutaneous q.8 hours, Zofran 4 mg IV q.8 hours, propofol was ordered at 5 mcg per kilogram per minute, but was not running. The patient was on a Versed drip at the time I saw him initially. I should say that it had just been stopped. ALLERGIES: No known drug allergies. DIET: Thin gentleman, acute weight loss or gain, history is unknown. FAMILY AND SOCIAL HISTORY: Lives in the community. Family had mentioned a history of cocaine abuse. Alcohol, tobacco or illicit drug use or abuse history otherwise is unknown. FAMILY HISTORY: Otherwise unknown. REVIEW OF SYSTEMS: Unobtainable secondary to the patient's medical and mental condition. Since he has been here, no gross hematochezia or melena, no gross hematuria, no hematemesis, no bloody tracheal secretions, no witnessed seizures. Review of systems otherwise unobtainable or as in the body of the history above. PHYSICAL EXAMINATION: VITAL SIGNS: At presentation in the Emergency Room revealed vital signs shows that he had a low-grade fever of 99.2 degrees Fahrenheit with a pulse of 100, respiratory rate of 20, blood pressure 120/79, O2 sats were 95%, inspired oxygen concentration at that time was not recorded. He has a T-max of 102.5 degrees Fahrenheit. GENERAL: He is a middle-aged, chronically ill looking male. Normocephalic, atraumatic on the mechanical ventilator without significantly increased respiratory effort at rest. HEAD, EYES, EARS, NOSE AND THROAT: Anicteric. No conjunctival erythema. He had a pus-like exudate coming out of his oropharynx. No gross jugular venous distention, no thyromegaly. ET tube was taped at the lips around 24 cm. He did have some temporal wasting. NECK: Grossly, there were no palpable lymph nodes in the supraclavicular or submandibular lymph node chains. LUNGS: Auscultation of both lung barriga revealed a right lower lobe in particular rales, no active wheezing. Slightly diminished bilateral breath sounds. HEART: Sounds 1 and 2 are heard at the time of my evaluation, regular rate and rhythm without overt rubs or murmurs. ABDOMEN: Soft, flat, bowel sounds are positive, nontender, no palpable hepatosplenomegaly. EXTREMITIES: Without overt digital clubbing or cyanosis, no pedal edema. Pedal pulses are 2+ bilaterally. NEUROLOGIC: Pupils are equal, round, about 1 mm, sluggishly reactive to light. Extraocular muscle movements could not be assessed. He had spontaneous movements to all 4 extremities. SKIN: Normal turgor without overt cellulitis or rash in the areas I examined. Please see the wound care nurses' and registered nurse's notes for full description of his skin. PSYCHIATRIC: Mood and affect could not be assessed. He was pretty much still sedated from the Versed drip, but follows simple commands. LABORATORY DATA: From my review are as follows: Admission white cell count 10,300, hemoglobin 14.5, hematocrit 43.4, platelet count 466. No manual differential. INR within normal limits. D-dimer 649. Admission ABG showed a pH of 7.26, pCO2 of 43, pO2 of 120 that was on 50% FiO2 and I believe the above-mentioned vent settings. Serum sodium was 137, potassium 4.7, chloride 94, bicarbonate 16, BUN 19, creatinine 1.7 and a glucose of 132, AST was up at 295. Otherwise, liver function test within normal limits. Albumin was up at 0.055. TSH within normal limit. Urinalysis showed small leukocyte esterase, 21 white cells per high power field. Aspirin, Tylenol, and alcohol levels nondetected. Urine drug screen was positive for cocaine. Presumptively positive. No microbiology studies. A CT of the head was done at presentation as well as a chest x-ray. The chest x-ray showed no acute findings, but flattening of the right hemidiaphragm and overall consistent with hyperinflation. He does have borderline cardiomegaly, especially taking the hyperinflation into consideration. Median sternotomy wires are noted and appeared to be in place. A chest x-ray this morning is really about the same. Endotracheal tube tip is at the lower level of the clavicular heads. A CT scan again was done of his head showed no acute intracranial process. ASSESSMENT: 1. Acute hypoxemic respiratory failure, on mechanical ventilatory support. 2. Cocaine abuse. 3. Acute encephalopathy, likely toxic metabolic. 4. Non-ST elevation myocardial infarction, possibly type 2. 5. Cardiomyopathy, presumed congestive heart failure/coronary artery disease, status post coronary artery bypass graft. 6. Acute kidney injury, cardiorenal versus prerenal syndrome. 7. Severe protein calorie malnutrition. 8. Possible urinary tract infection. PLAN: I have put him on a spontaneous breathing trial with a plan to extubate him, his mental status will have to improve. He has just developed a fever up to 102.4 degrees Fahrenheit. I am going to get 2 sets of blood cultures on this gentleman and send urine cultures for possible UTI. I will empirically put him on Rocephin and Zithromax for possible community-acquired pneumonia/also urinary tract infection. I will get a procalcitonin level and quickly deescalate antibiotics based on results of clinical and microbiological data. Versed drip is on hold and will be discontinued. We will use propofol and/or fentanyl p.r.n. If he passes a spontaneous breathing trial, he will be extubated. We will keep him n.p.o. for now, I would change the IV fluids to D5 NS at 50 mL per hour in light of his hypoglycemia and the possibility of a prerenal syndrome; however, I will be starting tube feeds if he is not extubated. He is morning gas showed persistent metabolic acidosis, but improving overall. He is appropriately on GI and DVT prophylaxis. Venous thromboembolic disease workup will be ended with a V/Q scan that was reported as low probability. Flu and pneumonia vaccination will be addressed per protocol. Urine electrolytes will be ordered. Nephrology consult has been placed. Thank you very much for the consult. We will follow along and make further recommendations as picture progresses/becomes clearer. He is critically ill on life-sustaining interventions including mechanical ventilatory support at very high risk of from cardiopulmonary system decompensation. At this time, I spent about 35-40 minutes of critical care time without overlap and excluding any procedural time that may be necessary. TID: [id number] RECEIPT: [id number] AMY/MOISES
[2022-03-02 05:09] LABS: Basophils % (Auto) 0.2 % (0.0-1.8); Eosinophils % (Auto) 0.2 % (0.0-4.3); Hematocrit 38.7 % (35.5-45.6); Hemoglobin 13.1 gm/dl (11.8-15.2); Lymphocytes # (Auto) 1.2 K/mm3 (1.2-5.4); Lymphocytes % (Auto) 10.4 % (13.4-35.0); Mean Corpuscular HGB Conc 34 % (32-34); Mean Corpuscular Volume 103 fl (84-94); Monocytes # (Auto) 0.8 K/mm3 (0.0-0.8); Monocytes % (Auto) 6.6 % (0.0-7.3); Platelet Count 371 K/mm3 (140-440); Red Blood Count 3.76 M/mm3 (3.65-5.03); Red Cell Distribution Width 16.6 % (13.2-15.2)
[2022-03-02 05:32] LABS: Alanine Aminotransferase 44 units/L (7-56); Albumin 3.3 g/dL (3.9-5); BUN/Creatinine Ratio 15; Blood Urea Nitrogen 19 mg/dL (9-20); Calcium 9.2 mg/dL (8.4-10.2); Hemolysis Index 1
[2022-03-02] MEDS: HEPARIN 5,000 UNIT/1 ML VIAL SUB-Q SCH ×3 (06:03→21:18)
[2022-03-02] MEDS: FAMOTIDINE 20 MG/2 ML INJ IV SCH (09:19)
[2022-03-02] MEDS: ASPIRIN 81 MG TAB CHEW FEEDTUBE SCH (09:19)
[2022-03-02 11:10] LABS: ABG Base Excess 0.6 mmol/L (-2.0-3.0); ABG HCO3 25.4 mmol/L (20.0-26.0); ABG Methemoglobin 0.5 % (0.0-1.5); ABG Oxygen Saturation 98.4 % (95.0-99.0); ABG PCO2 41.3 mm Hg; ABG PH 7.406 pH Units (7.350-7.450); ABG PO2 124.7 mm Hg (80.0-90.0)
--- NOTE | 2022-03-02 11:10 | Progress Note ---
<JUANITO CURTIS - Last Filed: 03/02/22 16:55> Assessment and Plan Assessment and plan: This is a 47-year-old male with history of drug abuse and possible open heart surgery 25 years admitted for AMS and acute hypoxic respiratory failure requiring ventilatory support Hospital Course to Date: 03/01: Patient seen and examined at the bedside. Intubated, off sedation this am. Remains lethargic but arousable, following simple commands. Keep sedation off for now, plan for possible PSV trial when more awake. Patient hypoglycemic this am, IVF switched to D5NS, BG check Q4hrs. Elevated TroponinX2, Cardiology consulted for NSTEMI, continue to trend cardiac enzymes. Nephrology is also following for TABATHA, continue IVF rehydration for now. 03/02: Remains intubated, off sedation, following commands and appropriate. Patient is tolerating PSV trial this am, possible extubation today. Empiric IV abx was initiated yesterday due to high fevers. Fever improved this am and patient remains hemodynamically stable. Continue IV Abx for now, blood cultures and procal pending. Renal function improved this am, 2D echo pending. Continue to monitor renal function and electrolytes, replete as needed. Nephrology is also following. Assessment and Plan #Acute Hypoxic Respiratory Failure - most likely due to drug abuse, found unresponsive at home, UDS +cocaine - Patient was hypoxic in the ED, SPO2 in the 80s on NRB - Intubated in the ED on 03/01 - Vent setting:PRVC-40%, 8,26,450 - AM ABG noted - CCM consulted, appreciate recommendations - VAP bundle addressed - Aspiration precaution HOB above 30 - Daily SBT and SAT trials as tolerated - Daily ABG and CXR - Continue SPO2 monitoring for SPO2 goal above 92% #Acute Toxic Encephalopathy #Cocaine Abuse - Found unresponsive at home by family - UDS +cocaine - CT Brain/brain with no acute intracranial abnormality. - Wile awake, following commands this am - Keep sedation off for now - Avoid benzodiazepine to reduce the possibility of delirium - PRN analgesia for CPOT greater than 3 - Maintenance of sleep-wake cycle #NSTEMI - Presented with elevated troponin - EKG reviewed with ST, HR in the 100s, no significant ST changes - Remain ins SR, HR in the 60-80, VSS - Cardiology on consult, appreciated recommendations - 2D echo pending - Continue Heparin SubQ for VTE proh - Continue blood pressure monitor per protocol - Maintain MAP above 65 #Acute Kidney Injury(TABATHA) #Hyponatremia-improved - Vasomotor nephropathy vs Pre-renal - Renal function improved this am - 2D echo pending - Nephrology consulted, appreciated recommendations - Strict intake and output - Avoid nephrotoxic medications; Renally dose medications - Monitor and replace electrolytes as needed #Fevers - Probably due to substances abuse, however infectious process can't be excluded - Afebrile this am, WBCs and lactic wnr - UA with elevated WBCs, neg nitrates and small leukocytes - Cultures and Procal pending - BLE doppler neg DVT - Continue empiric IV abx for now - Continue to F/U cultures - Daily CBC monitor - Consider ID consult if febrile or/and if leukocytosis occur #Hypoglycemia - Per EMS BG was in the 20s in the field s/p D50w - Patient still hypoglycemic this am - Continue Hypoglycemic protocol - BG check Q4hrs - Avoid hypoglycemia #Elevated D-Dimer - VQ scan was low probability for pulmonary embolism - BLE doppler negative DVT - Heparin subQ for VTE proph #GI/DVT Prophylaxis - PPI- Pepcid - Heparin subQ - SCDs to bilateral lower extremities while in bed The high probability of a clinically significant, sudden or life threatening deterioration of the [multiple] system(s) required my full and direct attention, intervention and personal management. The aggregate critical care time was [60] minutes. This time is in addition to time spent performing reported procedures but includes the following: [x] Data Review and interpretation [x] Patient assessment and monitoring of vital signs [x] Documentation [x] Medication orders and management Disposition Plan: ICU Total Time Spent with Patient (Minutes): 60 History Interval history: Patient seen and examined at the bedside. Remains on the vent, off sedation, while awake following commands. Patient is tolerating PSV trial this am, remains febrile and hemodynamically stable this am. GABRIELLE overnight Hospitalist Physical - Constitutional Vitals: Temp Pulse Resp BP Pulse Ox 97.9 F 68 10 L 121/86 100 03/02/22 08:00 03/02/22 11:00 03/02/22 11:00 03/02/22 11:00 03/02/22 11:00 General appearance: Present: no acute distress, cachectic, other (On the vent) - EENT Eyes: Present: PERRL ENT: hearing intact - Neck Neck: Present: normal ROM - Respiratory Respiratory effort: normal Respiratory: bilateral: rhonchi - Cardiovascular Rhythm: regular Heart Sounds: Present: S1 & S2 - Extremities Extremities: no ischemia, pulses intact, pulses symmetrical Peripheral Pulses: within normal limits - Abdominal General gastrointestinal: soft, non-distended, normal bowel sounds - Integumentary Integumentary: Present: warm, dry - Psychiatric Psychiatric: appropriate mood/affect, cooperative, other (Intubated) - Neurologic Neurologic: moves all extremities, other (Intubated, not on any sedations, following commands) - Allied Health Allied health notes reviewed: nursing HEART Score - HEART Score Troponin: Troponin T 0.055 ng/mL (0.00-0.029) H 03/01/22 09:42 Results - Labs CBC & Chem 7: 03/02/22 04:06 03/02/22 04:06 Labs: Laboratory Last Values WBC 11.6 K/mm3 (4.5-11.0) H 03/02/22 04:06 RBC 3.76 M/mm3 (3.65-5.03) 03/02/22 04:06 Hgb 13.1 gm/dl (11.8-15.2) 03/02/22 04:06 Hct 38.7 % (35.5-45.6) 03/02/22 04:06 MCV 103 fl (84-94) H 03/02/22 04:06 MCH 35 pg (28-32) H 03/02/22 04:06 MCHC 34 % (32-34) 03/02/22 04:06 RDW 16.6 % (13.2-15.2) H 03/02/22 04:06 Plt Count 371 K/mm3 (140-440) 03/02/22 04:06 Lymph % (Auto) 10.4 % (13.4-35.0) L 03/02/22 04:06 [place] % (Auto) 6.6 % (0.0-7.3) 03/02/22 04:06 Eos % (Auto) 0.2 % (0.0-4.3) 03/02/22 04:06 Baso % (Auto) 0.2 % (0.0-1.8) 03/02/22 04:06 Lymph # (Auto) 1.2 K/mm3 (1.2-5.4) 03/02/22 04:06 [place] # (Auto) 0.8 K/mm3 (0.0-0.8) 03/02/22 04:06 Eos # (Auto) 0.0 K/mm3 (0.0-0.4) 03/02/22 04:06 Baso # (Auto) 0.0 K/mm3 (0.0-0.1) 03/02/22 04:06 Seg Neutrophils % 82.6 % (40.0-70.0) H 03/02/22 04:06 Seg Neutrophils # 9.6 K/mm3 (1.8-7.7) H 03/02/22 04:06 PT 13.0 Sec. (12.2-14.9) 02/28/22 19:20 INR 0.89 (0.87-1.13) 02/28/22 19:20 D-Dimer 649.01 ng/mlDDU (0-234) H 02/28/22 Unknown ABG pH 7.226 pH Units (7.350-7.450) L 03/01/22 13:20 ABG pCO2 56.6 mm Hg 03/01/22 13:20 ABG pO2 80.1 mm Hg (80.0-90.0) 03/01/22 13:20 ABG HCO3 23.0 mmol/L (20.0-26.0) 03/01/22 13:20 ABG O2 Saturation 94.8 % (95.0-99.0) L 03/01/22 13:20 ABG O2 Content 19.2 (0.0-44) 03/01/22 13:20 ABG Base Excess -5.4 mmol/L (-2.0-3.0) L 03/01/22 13:20 ABG Hemoglobin 14.7 gm/dl (14.0-18.0) 03/01/22 13:20 ABG Carboxyhemoglobin 1.2 % (0.0-5.0) 03/01/22 13:20 ABG Methemoglobin 0.8 % (0.0-1.5) 03/01/22 13:20 Oxyhemoglobin 92.9 % (95.0-99.0) L 03/01/22 13:20 FiO2 40 % 03/01/22 13:20 Sodium 137 mmol/L (137-145) 03/02/22 04:06 Potassium 4.9 mmol/L (3.6-5.0) 03/02/22 04:06 Chloride 100.6 mmol/L (98-107) 03/02/22 04:06 Carbon Dioxide 25 mmol/L (22-30) 03/02/22 04:06 Anion Gap 16 mmol/L 03/02/22 04:06 BUN 19 mg/dL (9-20) 03/02/22 04:06 Creatinine 1.3 mg/dL (0.8-1.3) 03/02/22 04:06 Estimated GFR > 60 ml/min 03/02/22 04:06 BUN/Creatinine Ratio 15 % 03/02/22 04:06 Glucose 122 mg/dL (75-100) H 03/02/22 04:06 POC Glucose 140 mg/dL (70-105) H 03/01/22 23:20 Osmolality 295 Mosm/kg 03/01/22 12:04 Lactic Acid 0.80 mmol/L (0.7-2.0) 03/01/22 12:04 Uric Acid 10.5 mg/dL (3.5-7.6) H 03/01/22 09:42 Calcium 9.2 mg/dL (8.4-10.2) 03/02/22 04:06 Magnesium 1.90 mg/dL (1.7-2.3) 03/01/22 09:42 Total Bilirubin 0.70 mg/dL (0.1-1.2) 03/02/22 04:06 AST 74 units/L (5-40) H 03/02/22 04:06 ALT 44 units/L (7-56) 03/02/22 04:06 Alkaline Phosphatase 147 units/L (35-129) H 03/02/22 04:06 Total Creatine Kinase 979 units/L (55-170) H 03/01/22 09:42 CK-MB (CK-2) 14.2 ng/mL (0.0-4.0) H 03/01/22 09:42 CK-MB (CK-2) Rel Index 1.4 (0-4) 03/01/22 09:42 Troponin T 0.055 ng/mL (0.00-0.029) H 03/01/22 09:42 C-Reactive Protein 8.20 mg/dL (0.00-1.30) H 03/01/22 12:04 Total Protein 6.6 g/dL (6.3-8.2) 03/02/22 04:06 Albumin 3.3 g/dL (3.9-5) L 03/02/22 04:06 Albumin/Globulin Ratio 1.0 % 03/02/22 04:06 Triglycerides 141 mg/dL (2-149) 02/28/22 19:20 Cholesterol 170 mg/dL (50-199) 02/28/22 19:20 LDL Cholesterol Direct 89 mg/dL (50-130) 02/28/22 19:20 HDL Cholesterol 70 mg/dL (40-59) H 02/28/22 19:20 Cholesterol/HDL Ratio 2.42 % 02/28/22 19:20 Procalcitonin 6.44 ng/mL (<0.15) 03/01/22 12:04 TSH 1.100 mlU/mL (0.270-4.200) 02/28/22 19:20 Free T4 1.06 ng/dL (0.76-1.46) 02/28/22 19:20 Urine Color Yellow (Yellow) 03/01/22 11:17 Urine Turbidity Clear (Clear) 03/01/22 11:17 Urine pH 5.0 (5.0-7.0) 03/01/22 11:17 Ur Specific [place] 1.015 (1.003-1.030) 03/01/22 11:17 Urine Protein 30 mg/dl mg/dL (Negative) 03/01/22 11:17 Urine Glucose (UA) Neg mg/dL (Negative) 03/01/22 11:17 Urine Ketones 20 mg/dL (Negative) 03/01/22 11:17 Urine Blood Mod (Negative) 03/01/22 11:17 Urine Nitrite Neg (Negative) 03/01/22 11:17 Urine Bilirubin Neg (Negative) 03/01/22 11:17 Urine Urobilinogen < 2.0 mg/dL (<2.0) 03/01/22 11:17 Ur Leukocyte Esterase Sm (Negative) 03/01/22 11:17 Urine WBC (Auto) 21.0 /HPF (0.0-6.0) H 03/01/22 11:17 Urine RBC (Auto) 25.0 /HPF (0.0-6.0) 03/01/22 11:17 U Epithel Cells (Auto) 8.0 /HPF (0-13.0) 03/01/22 11:17 Urine Bacteria (Auto) 1+ /HPF (Negative) 03/01/22 11:17 Hyaline Casts 18 /LPF 03/01/22 11:17 Urine Mucus Few /HPF 03/01/22 11:17 Urine Osmolality 551 Mosm/kg 03/01/22 11:17 Urine Creatinine 114.3 mg/dL (0.1-20.0) H 03/01/22 11:17 Urine Sodium 51 mmol/L 03/01/22 11:17 Salicylates < 0.3 mg/dL (2.8-20.0) L 02/28/22 19:20 Urine Opiates Screen Presumptive negative 02/28/22 Unknown Urine Methadone Screen Presumptive negative 02/28/22 Unknown Acetaminophen 5.0 ug/mL (10.0-30.0) L 02/28/22 19:20 Ur Barbiturates Screen Presumptive negative 02/28/22 Unknown Ur Phencyclidine Scrn Presumptive negative 02/28/22 Unknown Ur Amphetamines Screen Presumptive negative 02/28/22 Unknown U Benzodiazepines Scrn Presumptive negative 02/28/22 Unknown Urine Cocaine Screen Presumptive positive 02/28/22 Unknown U Marijuana (THC) Screen Presumptive negative 02/28/22 Unknown Drugs of Abuse Note Disclamer 02/28/22 Unknown Plasma/Serum Alcohol < 0.01 % (0-0.07) 02/28/22 19:20 Hepatitis A IgM Ab Non-reactive (NonReactive) 03/01/22 12:04 Hep Bs Antigen Non-reactive (Negative) 03/01/22 12:04 Hep B Core IgM Ab Non-reactive (NonReactive) 03/01/22 12:04 Hepatitis C Antibody Non-reactive (NonReactive) 03/01/22 12:04 Abrams/IV: Voiding Method Condom Catheter Active Medications - Current Medications Current Medications: Generic Name Dose Route Start Last Admin Trade Name Freq PRN Reason Stop Dose Admin Acetaminophen 650 mg 03/01/22 00:07 03/01/22 11:50 Acetaminophen 650 Mg Rect Supp DE 650 mg Q6H PRN Administration Pain MILD(1-3)/Fever >100.5/RAINEY Aspirin 81 mg 03/02/22 10:00 03/02/22 09:19 Aspirin 81 Mg Tab Chew FEEDTUBE 81 mg QDAY MARTINEZ Administration Atorvastatin Calcium 40 mg 03/01/22 22:00 03/01/22 22:30 Atorvastatin 40 Mg Tab FEEDTUBE 40 mg QHS MARTINEZ Administration Dextrose 50 ml 03/01/22 09:03 03/01/22 09:18 Dextrose 50% In Water (25gm) 50 Ml Syringe IV 15 ml Q30MIN PRN Administration Hypoglycemia Protocol Famotidine 20 mg 03/01/22 10:00 03/02/22 09:19 Famotidine 20 Mg/2 Ml Inj IV 20 mg QDAY MARTINEZ Administration Fentanyl 25 mcg 03/01/22 13:58 03/02/22 02:30 Fentanyl 100 Mcg/2 Ml Inj IV 25 mcg Q2HR PRN Administration For CPOT greater than 3 Haloperidol Lactate 5 mg 03/01/22 13:57 03/01/22 14:34 Haloperidol Lactate 5 Mg/1 Ml Inj IV 03/03/22 13:56 5 mg Q6H PRN Administration Agitation Heparin Sodium (Porcine) 5,000 unit 03/01/22 14:00 03/02/22 06:03 Heparin 5,000 Unit/1 Ml Vial SUB-Q 5,000 unit Q8HR MARTINEZ Administration Propofol 1,000 mg in 100 mls @ 1.362 mls/hr 03/01/22 08:00 03/02/22 08:31 Diprivan 10 Mg/Ml IV 0 mcg/kg/min TITR MARTINEZ 0 mls/hr Titration Protocol 5 MCG/KG/MIN Levofloxacin/Dextrose 500 mg in 100 mls @ 100 mls/hr 03/01/22 13:00 03/01/22 13:49 Levaquin 500mg/100ml IV 03/05/22 13:59 100 mls/hr Q24H MARTINEZ Administration Protocol Magnesium Hydroxide 30 ml 03/01/22 00:07 Magnesium Hydroxide (Mom) Oral Liqd Udc PO Q4H PRN Constipation Ondansetron HCl 4 mg 03/01/22 00:07 Ondansetron 4 Mg/2 Ml Inj IV Q8H PRN Nausea And Vomiting Sodium Chloride 10 ml 03/01/22 10:00 03/02/22 09:19 Sodium Chloride 0.9% 10 Ml Flush Syringe IV 10 ml BID MARTINEZ Administration Sodium Chloride 10 ml 03/01/22 00:07 Sodium Chloride 0.9% 10 Ml Flush Syringe IV PRN PRN LINE FLUSH Nutrition/Malnutrition Assess - Dietary Evaluation Nutrition/Malnutrition Findings: Nutrition Notes Start: 03/01/22 09:18 Freq: Status: Active Protocol: Document 03/01/22 09:18 LEORA (Rec: 03/01/22 09:30 LEORA [id number]) Nutrition Notes Need for Assessment generated from: 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 Pt also screened for malnutrition and skin risks (Luis score: 14) and low BMI. Pt intubated and not appropriate for diet education at this time. Pt appears to be wt documented at admission; temples slightly depressed and observed fat loss. Burn Absent Trauma Absent Minimum of two criteria Yes Body Fat Depletion Moderate depletion (severe) Muscle Mass Moderate Depletion (severe) #1 Nutrition Diagnosis Inadequate oral intake [facility] As Evidenced by Signs and Symptoms pt NPO Is patient on ventilator? Yes Is Patient Ambulatory and/or Out of Bed No REE-([place]-confined to bed) 1593.120 Kcal/Kg value to use for calculation 45 Approximate Energy Requirements Using 2043 kcal/Kg Calculation Used for Recommendations Kcal/kg Additional Notes Pro needs 1.2-2g/k-91g/ day Fluid needs 1ml/kcal Nutrition Intervention Nutrition Support: Osmolite 1.5 at 55ml/hr with 150ml water flush q4h. Kcal 1,980 Protein (gm) 83 Carbohydrates (gm) 269 Fat (gm) 65 Fluid (mL) 1,006 Fiber (gm) 0 Goal #1 TF tolerance Goal #2 TF to meet 100% energy and pro needs Goal #3 Wt maintenance and/or gain Anticipated Discharge Needs: Consider an ONS 2-3 times daily for wt maintenance if diet advanced Follow-Up By: 03/04/22 Additional Comments F/U: new TF, vent status, Propofol, renal function <CRISTOPHER KERN - Last Filed: 03/03/22 07:01> Assessment and Plan Assessment and plan: I saw and evaluated the patient. I agree with the findings and the plan of care as documented in the Nurse Practitioner's~note, with the following corrections and additions. Hospitalist Physical - Constitutional Vitals: Temp Pulse Resp BP Pulse Ox 98.9 F 69 15 118/82 95 03/03/22 04:00 03/03/22 04:00 03/03/22 04:00 03/03/22 02:31 03/03/22 04:00 HEART Score - HEART Score Troponin: Troponin T 0.055 ng/mL (0.00-0.029) H 03/01/22 09:42 Results - Labs CBC & Chem 7: 03/03/22 04:03 03/03/22 04:03 Labs: Laboratory Last Values WBC 9.2 K/mm3 (4.5-11.0) 03/03/22 04:03 RBC 4.08 M/mm3 (3.65-5.03) 03/03/22 04:03 Hgb 14.2 gm/dl (11.8-15.2) 03/03/22 04:03 Hct 42.0 % (35.5-45.6) 03/03/22 04:03 MCV 103 fl (84-94) H 03/03/22 04:03 MCH 35 pg (28-32) H 03/03/22 04:03 MCHC 34 % (32-34) 03/03/22 04:03 RDW 16.1 % (13.2-15.2) H 03/03/22 04:03 Plt Count 408 K/mm3 (140-440) 03/03/22 04:03 Lymph % (Auto) 10.4 % (13.4-35.0) L 03/02/22 04:06 [place] % (Auto) 6.6 % (0.0-7.3) 03/02/22 04:06 Eos % (Auto) 0.2 % (0.0-4.3) 03/02/22 04:06 Baso % (Auto) 0.2 % (0.0-1.8) 03/02/22 04:06 Lymph # (Auto) 1.2 K/mm3 (1.2-5.4) 03/02/22 04:06 [place] # (Auto) 0.8 K/mm3 (0.0-0.8) 03/02/22 04:06 Eos # (Auto) 0.0 K/mm3 (0.0-0.4) 03/02/22 04:06 Baso # (Auto) 0.0 K/mm3 (0.0-0.1) 03/02/22 04:06 Seg Neutrophils % 82.6 % (40.0-70.0) H 03/02/22 04:06 Seg Neutrophils # 9.6 K/mm3 (1.8-7.7) H 03/02/22 04:06 PT 13.0 Sec. (12.2-14.9) 02/28/22 19:20 INR 0.89 (0.87-1.13) 02/28/22 19:20 D-Dimer 649.01 ng/mlDDU (0-234) H 02/28/22 Unknown ABG pH 7.406 pH Units (7.350-7.450) 03/02/22 10:48 ABG pCO2 41.3 mm Hg 03/02/22 10:48 ABG pO2 124.7 mm Hg (80.0-90.0) H 03/02/22 10:48 ABG HCO3 25.4 mmol/L (20.0-26.0) 03/02/22 10:48 ABG O2 Saturation 98.4 % (95.0-99.0) 03/02/22 10:48 ABG O2 Content 19.3 (0.0-44) 03/02/22 10:48 ABG Base Excess 0.6 mmol/L (-2.0-3.0) 03/02/22 10:48 ABG Hemoglobin 14.0 gm/dl (14.0-18.0) 03/02/22 10:48 ABG Carboxyhemoglobin 1.1 % (0.0-5.0) 03/02/22 10:48 ABG Methemoglobin 0.5 % (0.0-1.5) 03/02/22 10:48 Oxyhemoglobin 96.8 % (95.0-99.0) 03/02/22 10:48 FiO2 40 % 03/02/22 10:48 Sodium 137 mmol/L (137-145) 03/02/22 04:06 Potassium 4.9 mmol/L (3.6-5.0) 03/02/22 04:06 Chloride 100.6 mmol/L (98-107) 03/02/22 04:06 Carbon Dioxide 28 mmol/L (22-30) 03/03/22 04:03 Anion Gap 16 mmol/L 03/02/22 04:06 BUN 10 mg/dL (9-20) 03/03/22 04:03 Creatinine 1.0 mg/dL (0.8-1.3) 03/03/22 04:03 Estimated GFR > 60 ml/min 03/03/22 04:03 BUN/Creatinine Ratio 10 % 03/03/22 04:03 Glucose 107 mg/dL (75-100) H 03/03/22 04:03 POC Glucose 113 mg/dL (70-105) H 03/03/22 04:05 Osmolality 295 Mosm/kg 03/01/22 12:04 Lactic Acid 0.80 mmol/L (0.7-2.0) 03/01/22 12:04 Uric Acid 10.5 mg/dL (3.5-7.6) H 03/01/22 09:42 Calcium 9.6 mg/dL (8.4-10.2) 03/03/22 04:03 Magnesium 2.10 mg/dL (1.7-2.3) 03/02/22 11:37 Total Bilirubin 0.70 mg/dL (0.1-1.2) 03/02/22 04:06 AST 74 units/L (5-40) H 03/02/22 04:06 ALT 44 units/L (7-56) 03/02/22 04:06 Alkaline Phosphatase 147 units/L (35-129) H 03/02/22 04:06 Total Creatine Kinase 979 units/L (55-170) H 03/01/22 09:42 CK-MB (CK-2) 14.2 ng/mL (0.0-4.0) H 03/01/22 09:42 CK-MB (CK-2) Rel Index 1.4 (0-4) 03/01/22 09:42 Troponin T 0.055 ng/mL (0.00-0.029) H 03/01/22 09:42 C-Reactive Protein 8.20 mg/dL (0.00-1.30) H 03/01/22 12:04 Total Protein 6.6 g/dL (6.3-8.2) 03/02/22 04:06 Albumin 3.3 g/dL (3.9-5) L 03/02/22 04:06 Albumin/Globulin Ratio 1.0 % 03/02/22 04:06 Triglycerides 141 mg/dL (2-149) 02/28/22 19:20 Cholesterol 170 mg/dL (50-199) 02/28/22 19:20 LDL Cholesterol Direct 89 mg/dL (50-130) 02/28/22 19:20 HDL Cholesterol 70 mg/dL (40-59) H 02/28/22 19:20 Cholesterol/HDL Ratio 2.42 % 02/28/22 19:20 Procalcitonin 6.44 ng/mL (<0.15) 03/01/22 12:04 TSH 1.100 mlU/mL (0.270-4.200) 02/28/22 19:20 Free T4 1.06 ng/dL (0.76-1.46) 02/28/22 19:20 Urine Color Yellow (Yellow) 03/01/22 11:17 Urine Turbidity Clear (Clear) 03/01/22 11:17 Urine pH 5.0 (5.0-7.0) 03/01/22 11:17 Ur Specific [place] 1.015 (1.003-1.030) 03/01/22 11:17 Urine Protein 30 mg/dl mg/dL (Negative) 03/01/22 11:17 Urine Glucose (UA) Neg mg/dL (Negative) 03/01/22 11:17 Urine Ketones 20 mg/dL (Negative) 03/01/22 11:17 Urine Blood Mod (Negative) 03/01/22 11:17 Urine Nitrite Neg (Negative) 03/01/22 11:17 Urine Bilirubin Neg (Negative) 03/01/22 11:17 Urine Urobilinogen < 2.0 mg/dL (<2.0) 03/01/22 11:17 Ur Leukocyte Esterase Sm (Negative) 03/01/22 11:17 Urine WBC (Auto) 21.0 /HPF (0.0-6.0) H 03/01/22 11:17 Urine RBC (Auto) 25.0 /HPF (0.0-6.0) 03/01/22 11:17 U Epithel Cells (Auto) 8.0 /HPF (0-13.0) 03/01/22 11:17 Urine Bacteria (Auto) 1+ /HPF (Negative) 03/01/22 11:17 Hyaline Casts 18 /LPF 03/01/22 11:17 Urine Mucus Few /HPF 03/01/22 11:17 Urine Osmolality 551 Mosm/kg 03/01/22 11:17 Urine Creatinine 114.3 mg/dL (0.1-20.0) H 03/01/22 11:17 Urine Sodium 51 mmol/L 03/01/22 11:17 Salicylates < 0.3 mg/dL (2.8-20.0) L 02/28/22 19:20 Urine Opiates Screen Presumptive negative 02/28/22 Unknown Urine Methadone Screen Presumptive negative 02/28/22 Unknown Acetaminophen 5.0 ug/mL (10.0-30.0) L 02/28/22 19:20 Ur Barbiturates Screen Presumptive negative 02/28/22 Unknown Ur Phencyclidine Scrn Presumptive negative 02/28/22 Unknown Ur Amphetamines Screen Presumptive negative 02/28/22 Unknown U Benzodiazepines Scrn Presumptive negative 02/28/22 Unknown Urine Cocaine Screen Presumptive positive 02/28/22 Unknown U Marijuana (THC) Screen Presumptive negative 02/28/22 Unknown Drugs of Abuse Note Disclamer 02/28/22 Unknown Plasma/Serum Alcohol < 0.01 % (0-0.07) 02/28/22 19:20 Hepatitis A IgM Ab Non-reactive (NonReactive) 03/01/22 12:04 Hep Bs Antigen Non-reactive (Negative) 03/01/22 12:04 Hep B Core IgM Ab Non-reactive (NonReactive) 03/01/22 12:04 Hepatitis C Antibody Non-reactive (NonReactive) 03/01/22 12:04 Microbiology: Microbiology 02/28/22 22:07 Tracheal Aspirate Sputum Culture - Preliminary 03/02/22 14:00 Peripheral/Venous Blood Culture - Preliminary Culture in Progress 03/02/22 14:00 Peripheral/Venous Blood Culture - Preliminary Culture in Progress 03/01/22 12:24 Urine,Catheterized - Indwelling Catheter Urine Culture - Preliminary NO GROWTH AFTER 24 HOURS Abrams/IV: Voiding Method Condom Catheter Active Medications - Current Medications Current Medications: Generic Name Dose Route Start Last Admin Trade Name Freq PRN Reason Stop Dose Admin Acetaminophen 650 mg 03/01/22 00:07 03/01/22 11:50 Acetaminophen 650 Mg Rect Supp DE 650 mg Q6H PRN Administration Pain MILD(1-3)/Fever >100.5/RAINEY Aspirin 81 mg 03/02/22 10:00 03/02/22 09:19 Aspirin 81 Mg Tab Chew FEEDTUBE 81 mg QDAY MARTINEZ Administration Atorvastatin Calcium 40 mg 03/01/22 22:00 03/02/22 21:19 Atorvastatin 40 Mg Tab FEEDTUBE 40 mg QHS MARTINEZ Administration Dextrose 50 ml 03/01/22 09:03 03/01/22 09:18 Dextrose 50% In Water (25gm) 50 Ml Syringe IV 15 ml Q30MIN PRN Administration Hypoglycemia Protocol Famotidine 20 mg 03/01/22 10:00 03/02/22 09:19 Famotidine 20 Mg/2 Ml Inj IV 20 mg QDAY MARTINEZ Administration Fentanyl 25 mcg 03/01/22 13:58 03/02/22 02:30 Fentanyl 100 Mcg/2 Ml Inj IV 25 mcg Q2HR PRN Administration For CPOT greater than 3 Haloperidol Lactate 5 mg 03/01/22 13:57 03/01/22 14:34 Haloperidol Lactate 5 Mg/1 Ml Inj IV 03/03/22 13:56 5 mg Q6H PRN Administration Agitation Heparin Sodium (Porcine) 5,000 unit 03/01/22 14:00 03/03/22 06:07 Heparin 5,000 Unit/1 Ml Vial SUB-Q 5,000 unit Q8HR MARTINEZ Administration Propofol 1,000 mg in 100 mls @ 1.362 mls/hr 03/01/22 08:00 03/02/22 08:31 Diprivan 10 Mg/Ml IV 0 mcg/kg/min TITR MARTINEZ 0 mls/hr Titration Protocol 5 MCG/KG/MIN Levofloxacin/Dextrose 500 mg in 100 mls @ 100 mls/hr 03/01/22 13:00 03/02/22 12:04 Levaquin 500mg/100ml IV 03/05/22 13:59 100 mls/hr Q24H MARTINEZ Administration Protocol Magnesium Hydroxide 30 ml 03/01/22 00:07 Magnesium Hydroxide (Mom) Oral Liqd Udc PO Q4H PRN Constipation Ondansetron HCl 4 mg 03/01/22 00:07 Ondansetron 4 Mg/2 Ml Inj IV Q8H PRN Nausea And Vomiting Sodium Chloride 10 ml 03/01/22 10:00 03/02/22 21:19 Sodium Chloride 0.9% 10 Ml Flush Syringe IV 10 ml BID MARTINEZ Administration Sodium Chloride 10 ml 03/01/22 00:07 Sodium Chloride 0.9% 10 Ml Flush Syringe IV PRN PRN LINE FLUSH Nutrition/Malnutrition Assess - Dietary Evaluation Nutrition/Malnutrition Findings: Nutrition Notes Start: 03/01/22 09:18 Freq: Status: Active Protocol: Document 03/01/22 09:18 LEORA (Rec: 03/01/22 09:30 [id number]) Nutrition Notes Need for Assessment generated from: 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 Pt also screened for malnutrition and skin risks (Luis score: 14) and low BMI. Pt intubated and not appropriate for diet education at this time. Pt appears to be wt documented at admission; temples slightly depressed and observed fat loss. Burn Absent Trauma Absent Minimum of two criteria Yes Body Fat Depletion Moderate depletion (severe) Muscle Mass Moderate Depletion (severe) #1 Nutrition Diagnosis Inadequate oral intake Etiology mech ventilation As Evidenced by Signs and Symptoms pt NPO Is patient on ventilator? Yes Is Patient Ambulatory and/or Out of Bed No REE-([place]confined to bed) 1593.120 Kcal/Kg value to use for calculation 45 Approximate Energy Requirements Using 2042 kcal/Kg Calculation Used for Recommendations Kcal/kg Additional Notes Pro needs 1.2-2g/k-91g/ day Fluid needs 1ml/kcal Nutrition Intervention Nutrition Support: Osmolite 1.5 at 55ml/hr with 150ml water flush q4h. Kcal 1,980 Protein (gm) 83 Carbohydrates (gm) 269 Fat (gm) 65 Fluid (mL) 1,006 Fiber (gm) 0 Goal #1 TF tolerance Goal #2 TF to meet 100% energy and pro needs Goal #3 Wt maintenance and/or gain Anticipated Discharge Needs: Consider an ONS 2-3 times daily for wt maintenance if diet advanced Follow-Up By: 03/04/22 Additional Comments F/U: new TF, vent status, Propofol, renal function
--- NOTE | 2022-03-02 11:31 | Progress Note ---
Subjective Interval history: Assessment and plan Acute kidney injury in a patient was 47-year-old admitted here with altered mental status hypoglycemia mild metabolic acidosis with cocaine abuse, as of today, patient's creatinine is completely normal at 1.3 which was 1.8 yesterday, his sodium has normalized 137 Metabolic acidosis: Currently improving at 25 Hemoglobin normal Urinalysis shows 21 white cell urine sodium was 51 creatinine was 114 osmolality was 551 in the setting of cocaine use and possible volume depletion renal ultrasonogram currently results pending, overall improving well from renal standpoint. Continue with supportive care Progress note by: Jose F Rodrigez MD [address] [place] [id number] Tele [phone] [email or web address] Patient was seen today for follow-up of multiple renal related issues Resting comfortably in bed Interdisciplinary notes that also reviewed Events of 24 hours vitals labs intake output medications were reviewed Past medical history: Reviewed Family history: Reviewed Social history: Reviewed Allergies: Reviewed Physical examination: Vitals: Reviewed HEENT: No pallor or icterus oral mucosa moist Neck: Supple no JVD no thyromegaly Chest: Bilateral clear to auscultation anteriorly Heart: Regular rate and rhythm S1-S2 heard no S3-S4 Abdomen: Soft nontender no voluntary guarding rigidity rebound Extremity: Dry skin less than 1+ peripheral edema Psychiatric: No evidence of agitation and aggression noted Dermatology: No petechial rashes Labs and x-rays: Reviewed from today Objective - Vital Signs Vital signs: Vital Signs - 12hr 03/01/22 03/02/22 03/02/22 23:58 00:00 00:30 Temperature 98.9 F Pulse Rate 83 87 Pulse Rate [ 83 From Monitor] Respiratory 21 26 H Rate Blood Pressure 101/75 101/75 O2 Sat by Pulse 100 100 Oximetry 03/02/22 03/02/22 03/02/22 01:00 01:30 02:00 Temperature Pulse Rate 86 89 81 Pulse Rate [ From Monitor] Respiratory 19 17 12 Rate Blood Pressure 102/77 102/77 119/50 O2 Sat by Pulse 100 100 100 Oximetry 03/02/22 03/02/22 03/02/22 02:30 03:00 03:30 Temperature Pulse Rate 85 82 84 Pulse Rate [ From Monitor] Respiratory 26 H 26 H 26 H Rate Blood Pressure 119/50 103/77 103/77 O2 Sat by Pulse 100 100 100 Oximetry 03/02/22 03/02/22 03/02/22 03:40 04:00 04:30 Temperature 99.5 F Pulse Rate 82 80 78 Pulse Rate [ 80 From Monitor] Respiratory 25 H 18 Rate Blood Pressure 103/77 105/77 105/77 O2 Sat by Pulse 100 100 100 Oximetry 03/02/22 03/02/22 03/02/22 05:00 05:30 06:00 Temperature Pulse Rate 79 81 82 Pulse Rate [ From Monitor] Respiratory 16 13 19 Rate Blood Pressure 115/82 115/82 96/72 O2 Sat by Pulse 90 100 100 Oximetry 03/02/22 03/02/22 03/02/22 06:30 07:00 07:30 Temperature Pulse Rate 80 80 80 Pulse Rate [ From Monitor] Respiratory 17 14 23 Rate Blood Pressure 96/72 100/79 100/79 O2 Sat by Pulse 100 100 100 Oximetry 03/02/22 03/02/22 03/02/22 08:00 08:11 08:20 Temperature 97.9 F Pulse Rate 83 83 Pulse Rate [ 84 From Monitor] Respiratory 14 Rate Blood Pressure 112/88 112/88 O2 Sat by Pulse 100 100 100 Oximetry 03/02/22 03/02/22 03/02/22 08:30 09:00 09:30 Temperature Pulse Rate 87 73 66 Pulse Rate [ From Monitor] Respiratory 14 9 L 13 Rate Blood Pressure 112/88 119/89 119/89 O2 Sat by Pulse 99 100 99 Oximetry 03/02/22 03/02/22 03/02/22 10:00 10:30 11:00 Temperature Pulse Rate 69 66 68 Pulse Rate [ From Monitor] Respiratory 10 L 13 10 L Rate Blood Pressure 127/87 127/87 121/86 O2 Sat by Pulse 99 100 100 Oximetry - Lab 03/03/22 04:03 03/03/22 04:03 Most recent lab results ABG pH 7.406 pH Units (7.350-7.450) 03/02/22 10:48 ABG pCO2 41.3 mm Hg 03/02/22 10:48 ABG pO2 124.7 mm Hg (80.0-90.0) H 03/02/22 10:48 ABG HCO3 25.4 mmol/L (20.0-26.0) 03/02/22 10:48 ABG O2 Saturation 98.4 % (95.0-99.0) 03/02/22 10:48 Calcium 9.2 mg/dL (8.4-10.2) 03/02/22 04:06 Magnesium 1.90 mg/dL (1.7-2.3) 03/01/22 09:42 Urine Creatinine 114.3 mg/dL (0.1-20.0) H 03/01/22 11:17 Urine Sodium 51 mmol/L 03/01/22 11:17 Medications & Allergies - Medications Allergies/Adverse Reactions: Allergies No Known Allergies Allergy (Verified 02/28/22 21:15) Home Medications: Home Medications Medication Instructions Recorded Confirmed Last Taken Type No Known Home Medications [No 03/01/22 03/01/22 Unknown History Reported Home Medications] Active Medications: Generic Name Dose Route Start Last Admin Trade Name Freq PRN Reason Stop Dose Admin Acetaminophen 650 mg 03/01/22 00:07 03/01/22 11:50 Acetaminophen 650 Mg Rect Supp NC 650 mg Q6H PRN Administration Pain MILD(1-3)/Fever >100.5/RAINEY Aspirin 81 mg 03/02/22 10:00 03/02/22 09:19 Aspirin 81 Mg Tab Chew FEEDTUBE 81 mg QDAY MARTINEZ Administration Atorvastatin Calcium 40 mg 03/01/22 22:00 03/01/22 22:30 Atorvastatin 40 Mg Tab FEEDTUBE 40 mg QHS MARTINEZ Administration Dextrose 50 ml 03/01/22 09:03 03/01/22 09:18 Dextrose 50% In Water (25gm) 50 Ml Syringe IV 15 ml Q30MIN PRN Administration Hypoglycemia Protocol Famotidine 20 mg 03/01/22 10:00 03/02/22 09:19 Famotidine 20 Mg/2 Ml Inj IV 20 mg QDAY MARTINEZ Administration Fentanyl 25 mcg 03/01/22 13:58 03/02/22 02:30 Fentanyl 100 Mcg/2 Ml Inj IV 25 mcg Q2HR PRN Administration For CPOT greater than 3 Haloperidol Lactate 5 mg 03/01/22 13:57 03/01/22 14:34 Haloperidol Lactate 5 Mg/1 Ml Inj IV 03/03/22 13:56 5 mg Q6H PRN Administration Agitation Heparin Sodium (Porcine) 5,000 unit 03/01/22 14:00 03/02/22 06:03 Heparin 5,000 Unit/1 Ml Vial SUB-Q 5,000 unit Q8HR MARTINEZ Administration Propofol 1,000 mg in 100 mls @ 1.362 mls/hr 03/01/22 08:00 03/02/22 08:31 Diprivan 10 Mg/Ml IV 0 mcg/kg/min TITR MARTINEZ 0 mls/hr Titration Protocol 5 MCG/KG/MIN Levofloxacin/Dextrose 500 mg in 100 mls @ 100 mls/hr 03/01/22 13:00 03/01/22 13:49 Levaquin 500mg/100ml IV 03/05/22 13:59 100 mls/hr Q24H MARTINEZ Administration Protocol Magnesium Hydroxide 30 ml 03/01/22 00:07 Magnesium Hydroxide (Mom) Oral Liqd Udc PO Q4H PRN Constipation Ondansetron HCl 4 mg 03/01/22 00:07 Ondansetron 4 Mg/2 Ml Inj IV Q8H PRN Nausea And Vomiting Sodium Chloride 10 ml 03/01/22 10:00 03/02/22 09:19 Sodium Chloride 0.9% 10 Ml Flush Syringe IV 10 ml BID MARTINEZ Administration Sodium Chloride 10 ml 03/01/22 00:07 Sodium Chloride 0.9% 10 Ml Flush Syringe IV PRN PRN LINE FLUSH
--- NOTE | 2022-03-02 13:51 | Progress Note ---
Assessment and Plan Acute hypoxemic respiratory failure on MVS Cocaine abuse Acute encephalopathy Non-ST elevation myocardial infarction Cardiomyopathy (s/p stab and CTSU) Acute kidney injury (cardiorenal versus prerenal syndrome) Severe protein calorie malnutrition Possible urinary tract infection - on SBT via PSV with p-supp @ 10 cm H2O (extubate if passes) - follow 2 hour ABG - follow 2D ECHO report - continue to wean supplemental oxygen for target O2 sat's > 90% acutely - VAP bundle addressed - continue lung protective strategies - continue bronchodilators with pulmonary hygiene per RT - wean per pulmonary driven protocols otherwise - avoid nephrotoxins, renally dose all medications - continue accuchecks with glycemic control per SSI (While critically ill target blood glucose of 140-180 mg/dL; avoid hypoglycemia) - sedation prn for target RASS 0 to -1 - continue to avoid benzodiazepine's, reduce the possibility of delirium - AB's per ID rec's - prn analgesia per pain score - Maintenance of sleep-wake cycle, avoid delirium - continue enteral nutritional support at goal rate as tolerated - G.I. & VTE prophylaxis - PT/OT/ROM exercises - continue mobility protocols for pressure ulcer prophylaxis - Monitor hemodynamics closely - continue other care per attending / other consultants - discharge planning ongoing concurrently .... Re-evaluate in am & prn CONDITION: CRITICAL PROGNOSIS: GUARDED CODE STATUS: FULL CODE The high probability of a clinically significant, sudden or life-threatening deterioration of the [respiratory, cardiovascular & neurologic] system(s) required my full and direct attention, intervention and personal management. The aggregate critical care time was [31] minutes without overlap. Time includes spent on; [x] Data Review and interpretation [x] Patient assessment and monitoring of vital signs [x] Documentation [x] Medication orders and management Subjective Date of service: 03/02/22 Principal diagnosis: AHRF; Cocaine OD; AMS; NSTEMI; CMOP; TABATHA; Protein calorie malnutritition Interval history: Patient is seen today for: Acute hypoxemic respiratory failure; Cocaine abuse; AMS; NSTEMI; CMOP; TABATHA; Severe protein calorie malnutrition Seen and examined at bedside; 24hour events reviewed; nursing and respiratory care staff consulted; no adverse overnight events reported to me; resting peacefully in bed; more alert today; passed SBT; s/p 2D ECHO; no emesis or over aspiration; denies chest pain or palpitations Objective Vital Signs - 12hr 03/02/22 03/02/22 03/02/22 02:00 02:30 03:00 Temperature Pulse Rate 81 85 82 Pulse Rate [ From Monitor] Respiratory 12 26 H 26 H Rate Blood Pressure 119/50 119/50 103/77 O2 Sat by Pulse 100 100 100 Oximetry 03/02/22 03/02/22 03/02/22 03:30 03:40 04:00 Temperature 99.5 F Pulse Rate 84 82 80 Pulse Rate [ 80 From Monitor] Respiratory 26 H 25 H Rate Blood Pressure 103/77 103/77 105/77 O2 Sat by Pulse 100 100 100 Oximetry 03/02/22 03/02/22 03/02/22 04:30 05:00 05:30 Temperature Pulse Rate 78 79 81 Pulse Rate [ From Monitor] Respiratory 18 16 13 Rate Blood Pressure 105/77 115/82 115/82 O2 Sat by Pulse 100 90 100 Oximetry 03/02/22 03/02/22 03/02/22 06:00 06:30 07:00 Temperature Pulse Rate 82 80 80 Pulse Rate [ From Monitor] Respiratory 19 17 14 Rate Blood Pressure 96/72 96/72 100/79 O2 Sat by Pulse 100 100 100 Oximetry 03/02/22 03/02/22 03/02/22 07:30 08:00 08:11 Temperature 97.9 F Pulse Rate 80 83 83 Pulse Rate [ 84 From Monitor] Respiratory 23 14 Rate Blood Pressure 100/79 112/88 112/88 O2 Sat by Pulse 100 100 100 Oximetry 03/02/22 03/02/22 03/02/22 08:20 08:30 09:00 Temperature Pulse Rate 87 73 Pulse Rate [ From Monitor] Respiratory 14 9 L Rate Blood Pressure 112/88 119/89 O2 Sat by Pulse 100 99 100 Oximetry 03/02/22 03/02/22 03/02/22 09:30 10:00 10:30 Temperature Pulse Rate 66 69 66 Pulse Rate [ From Monitor] Respiratory 13 10 L 13 Rate Blood Pressure 119/89 127/87 127/87 O2 Sat by Pulse 99 99 100 Oximetry 03/02/22 03/02/22 03/02/22 11:00 11:30 12:00 Temperature 98.1 F Pulse Rate 68 73 67 Pulse Rate [ 61 From Monitor] Respiratory 10 L 11 L 11 L Rate Blood Pressure 121/86 121/86 127/95 O2 Sat by Pulse 100 100 100 Oximetry 03/02/22 03/02/22 03/02/22 12:06 12:30 13:00 Temperature Pulse Rate 76 60 61 Pulse Rate [ From Monitor] Respiratory 9 L 11 L Rate Blood Pressure 127/95 127/95 124/83 O2 Sat by Pulse 100 100 100 Oximetry 03/02/22 13:30 Temperature Pulse Rate 67 Pulse Rate [ From Monitor] Respiratory 11 L Rate Blood Pressure 124/83 O2 Sat by Pulse 99 Oximetry Constitutional: no acute distress Eyes: non-icteric ENT: oropharynx moist, other (ETT 24 cm GLENNY) Neck: supple, no lymphadenopathy, no JVD Effort: normal Ascultation: Bilateral: clear Percussion: Bilateral: not dull Cardiovascular: regular rate and rhythm Gastrointestinal: normoactive bowel sounds, soft, non-tender, non-distended Integumentary: other (midline sternal / abdominal post surgical scar) Extremities: no cyanosis, no edema, pulses normal, no ischemia or petechiae Neurologic: normal mental status, non-focal exam, pupils equal and round, motor strength normal and Psychiatric: mood appropriate, affect normal CBC and BMP: 03/02/22 04:06 03/02/22 04:06 ABG, PT/INR, D-dimer: ABG ABG pH 7.406 pH Units (7.350-7.450) 03/02/22 10:48 ABG pCO2 41.3 mm Hg 03/02/22 10:48 ABG pO2 124.7 mm Hg (80.0-90.0) H 03/02/22 10:48 ABG O2 Saturation 98.4 % (95.0-99.0) 03/02/22 10:48 PT/INR, D-dimer PT 13.0 Sec. (12.2-14.9) 02/28/22 19:20 INR 0.89 (0.87-1.13) 02/28/22 19:20 D-Dimer 649.01 ng/mlDDU (0-234) H 02/28/22 Unknown Abnormal lab findings: Abnormal Labs 02/28/22 02/28/22 02/28/22 19:20 19:20 19:20 WBC MCV 105 H MCH 35 H RDW 16.9 H Plt Count 466 H Lymph % (Auto) 9.2 L Lymph # (Auto) 0.9 L Seg Neutrophils % 83.4 H Seg Neutrophils # 8.6 H D-Dimer ABG pH ABG pO2 ABG HCO3 ABG O2 Saturation ABG Base Excess Oxyhemoglobin Sodium 135 L Chloride 93.6 L Carbon Dioxide 16 L BUN Creatinine 1.7 H Glucose 132 H POC Glucose Uric Acid AST 295 H Alkaline Phosphatase 189 H Total Creatine Kinase CK-MB (CK-2) Troponin T 0.055 H C-Reactive Protein Albumin HDL Cholesterol 70 H Urine WBC (Auto) Urine Creatinine Salicylates < 0.3 L Acetaminophen 02/28/22 02/28/22 02/28/22 19:20 20:00 22:00 WBC MCV MCH RDW Plt Count Lymph % (Auto) Lymph # (Auto) Seg Neutrophils % Seg Neutrophils # D-Dimer ABG pH 7.170 L* ABG pO2 392.6 H ABG HCO3 ABG O2 Saturation 99.5 H ABG Base Excess -7.6 L Oxyhemoglobin Sodium Chloride Carbon Dioxide BUN Creatinine Glucose POC Glucose Uric Acid AST Alkaline Phosphatase Total Creatine Kinase 395 H CK-MB (CK-2) 10.3 H Troponin T C-Reactive Protein Albumin HDL Cholesterol Urine WBC (Auto) Urine Creatinine Salicylates Acetaminophen 5.0 L 02/28/22 02/28/22 03/01/22 23:40 Unknown 08:18 WBC MCV MCH RDW Plt Count Lymph % (Auto) Lymph # (Auto) Seg Neutrophils % Seg Neutrophils # D-Dimer 649.01 H ABG pH 7.255 L 7.331 L ABG pO2 119.5 H 79.7 L ABG HCO3 18.5 L 19.3 L ABG O2 Saturation ABG Base Excess -8.3 L -6.0 L Oxyhemoglobin 94.7 L 94.0 L Sodium Chloride Carbon Dioxide BUN Creatinine Glucose POC Glucose Uric Acid AST Alkaline Phosphatase Total Creatine Kinase CK-MB (CK-2) Troponin T C-Reactive Protein Albumin HDL Cholesterol Urine WBC (Auto) Urine Creatinine Salicylates Acetaminophen 03/01/22 03/01/22 03/01/22 08:57 09:42 09:42 WBC MCV MCH RDW Plt Count Lymph % (Auto) Lymph # (Auto) Seg Neutrophils % Seg Neutrophils # D-Dimer ABG pH ABG pO2 ABG HCO3 ABG O2 Saturation ABG Base Excess Oxyhemoglobin Sodium 134 L Chloride Carbon Dioxide 19 L BUN 25 H Creatinine 1.8 H Glucose POC Glucose 67 L Uric Acid 10.5 H AST Alkaline Phosphatase Total Creatine Kinase 979 H CK-MB (CK-2) 14.2 H Troponin T 0.055 H C-Reactive Protein Albumin HDL Cholesterol Urine WBC (Auto) Urine Creatinine Salicylates Acetaminophen 03/01/22 03/01/22 03/01/22 11:17 11:17 12:04 WBC MCV MCH RDW Plt Count Lymph % (Auto) Lymph # (Auto) Seg Neutrophils % Seg Neutrophils # D-Dimer ABG pH ABG pO2 ABG HCO3 ABG O2 Saturation ABG Base Excess Oxyhemoglobin Sodium Chloride Carbon Dioxide BUN Creatinine Glucose POC Glucose Uric Acid AST Alkaline Phosphatase Total Creatine Kinase CK-MB (CK-2) Troponin T C-Reactive Protein 8.20 H Albumin HDL Cholesterol Urine WBC (Auto) 21.0 H Urine Creatinine 114.3 H Salicylates Acetaminophen 03/01/22 03/01/22 03/02/22 13:20 23:20 03:43 WBC MCV MCH RDW Plt Count Lymph % (Auto) Lymph # (Auto) Seg Neutrophils % Seg Neutrophils # D-Dimer ABG pH 7.226 L ABG pO2 ABG HCO3 ABG O2 Saturation 94.8 L ABG Base Excess -5.4 L Oxyhemoglobin 92.9 L Sodium Chloride Carbon Dioxide BUN Creatinine Glucose POC Glucose 140 H 133 H Uric Acid AST Alkaline Phosphatase Total Creatine Kinase CK-MB (CK-2) Troponin T C-Reactive Protein Albumin HDL Cholesterol Urine WBC (Auto) Urine Creatinine Salicylates Acetaminophen 03/02/22 03/02/22 03/02/22 04:06 04:06 07:57 WBC 11.6 H MCV 103 H MCH 35 H RDW 16.6 H Plt Count Lymph % (Auto) 10.4 L Lymph # (Auto) Seg Neutrophils % 82.6 H Seg Neutrophils # 9.6 H D-Dimer ABG pH ABG pO2 ABG HCO3 ABG O2 Saturation ABG Base Excess Oxyhemoglobin Sodium Chloride Carbon Dioxide BUN Creatinine Glucose 122 H POC Glucose 148 H Uric Acid AST 74 H Alkaline Phosphatase 147 H Total Creatine Kinase CK-MB (CK-2) Troponin T C-Reactive Protein Albumin 3.3 L HDL Cholesterol Urine WBC (Auto) Urine Creatinine Salicylates Acetaminophen 03/02/22 10:48 WBC MCV MCH RDW Plt Count Lymph % (Auto) Lymph # (Auto) Seg Neutrophils % Seg Neutrophils # D-Dimer ABG pH ABG pO2 124.7 H ABG HCO3 ABG O2 Saturation ABG Base Excess Oxyhemoglobin Sodium Chloride Carbon Dioxide BUN Creatinine Glucose POC Glucose Uric Acid AST Alkaline Phosphatase Total Creatine Kinase CK-MB (CK-2) Troponin T C-Reactive Protein Albumin HDL Cholesterol Urine WBC (Auto) Urine Creatinine Salicylates Acetaminophen Chest x-ray: other (none today) Allied health notes reviewed: nursing
--- NOTE | 2022-03-02 16:57 | Progress Note ---
Assessment and Plan Assessment: Acute Encephalopathy Acute Respiratory Failure Cocaine Abuse Hypoglycemia TABATHA Mild Tn Elevation Plan: Echo preliminarily reveals normal LVEF. Full report pending. CE elevation likely represents non-ischemic myocardial injury in the setting of cocaine abuse, hypoglycemia, and TABATHA. Ok to continue bASA and statin for now. Avoid beta blockers due to cocaine use. Ischemic evaluation will be considered when clinically stable, possibly as an outpatient. Pt seen in conjunction with Dr. Mcdowell, who agrees with the assessment and plan of care. - Patient Problems (1) Altered mental status Current Visit: Yes Status: Acute (2) Cocaine abuse Current Visit: Yes Status: Acute Subjective Date of service: 03/02/22 Principal diagnosis: Elevated Tn [facility] Off sedation, follows commands. No acute events overnight. SR 60-70s on tele, no events. Objective Last Vital Signs Temp 99 F 03/02/22 16:00 Pulse 75 03/02/22 16:00 Resp 16 03/02/22 16:00 BP 101/63 03/02/22 16:00 Pulse Ox 98 03/02/22 16:00 - Physical Examination General: Other (Intubated) HEENT: Positive: Normocephaly Neck: Negative: JVD/HJR Cardiac: Positive: Reg Rate and Rhythm, S1/S2 Lungs: Positive: Ventilated Respirations Neuro: Positive: Other (Following commands) Abdomen: Positive: Soft Skin: Negative: Rash Extremities: Present: lower extr. pulses, warm. Absent: edema - Labs and Meds Cardiac Enzymes 03/02/22 Range/Units 04:06 AST 74 H (5-40) units/L CBC 03/02/22 Range/Units 04:06 WBC 11.6 H (4.5-11.0) K/mm3 RBC 3.76 (3.65-5.03) M/mm3 Hgb 13.1 (11.8-15.2) gm/dl Hct 38.7 (35.5-45.6) % Plt Count 371 (140-440) K/mm3 Lymph # (Auto) 1.2 (1.2-5.4) K/mm3 [place] # (Auto) 0.8 (0.0-0.8) K/mm3 Eos # (Auto) 0.0 (0.0-0.4) K/mm3 Baso # (Auto) 0.0 (0.0-0.1) K/mm3 Comprehensive Metabolic Panel 03/02/22 Range/Units 04:06 Sodium 137 (137-145) mmol/L Potassium 4.9 (3.6-5.0) mmol/L Chloride 100.6 (98-107) mmol/L Carbon Dioxide 25 (22-30) mmol/L BUN 19 (9-20) mg/dL Creatinine 1.3 (0.8-1.3) mg/dL Glucose 122 H (75-100) mg/dL Calcium 9.2 (8.4-10.2) mg/dL AST 74 H (5-40) units/L ALT 44 (7-56) units/L Alkaline Phosphatase 147 H (35-129) units/L Total Protein 6.6 (6.3-8.2) g/dL Albumin 3.3 L (3.9-5) g/dL - Imaging and Cardiology EKG: report reviewed, image reviewed Echo: pending - Telemetry EKG Rhythm: Sinus Rhythm - EKG Sinus rhythms and dysrhythmias: sinus tachycardia - Allied health notes Allied health notes reviewed: nursing
[2022-03-03 04:31] LABS: Hemoglobin 14.2 gm/dl (11.8-15.2); Mean Corpuscular HGB Conc 34 % (32-34); Mean Corpuscular Volume 103 fl (84-94); Platelet Count 408 K/mm3 (140-440); Red Blood Count 4.08 M/mm3 (3.65-5.03); Red Cell Distribution Width 16.1 % (13.2-15.2)
[2022-03-03 04:47] LABS: BUN/Creatinine Ratio 10; Blood Urea Nitrogen 10 mg/dL (9-20); Calcium 9.6 mg/dL (8.4-10.2); Hemolysis Index 10
[2022-03-03] MEDS: HEPARIN 5,000 UNIT/1 ML VIAL SUB-Q SCH ×3 (06:07→22:15)
--- NOTE | 2022-03-03 09:17 | Progress Note ---
Subjective Principal diagnosis: Elevated Tn Interval history: Assessment and plan Acute kidney injury: Currently in complete remission, Most likely etiology appears to be mostly resulting from respiratory failure, possible underlying chronic kidney disease, has multiple risk factor, cardiomyopathy, Blood culture urine culture negative so far Patient admitted with altered mental status hypoglycemia mild metabolic acidosis in the setting of cocaine abuse, Renal ultrasonogram results: Pending at this point Renal prognosis: Long-term could be poor Overall stable from renal standpoint Will need follow-up in the office upon discharge If there are any renal related issues in regards to this patient please feel free to reach out without any hesitation at [phone] We'll continue to follow and make recommendation for renal standpoint. Progress note by: Jose F Rodrigez MD [address] [place] [address] Tele [phone] [email or web address] Patient was seen today for follow-up of multiple renal related issues Resting comfortably in bed Interdisciplinary notes that also reviewed Events of 24 hours vitals labs intake output medications were reviewed Past medical history: Reviewed Family history: Reviewed Social history: Reviewed Allergies: Reviewed Physical examination: Vitals: Reviewed HEENT: No pallor or icterus oral mucosa moist Neck: Supple no JVD no thyromegaly Chest: Bilateral clear to auscultation anteriorly Heart: Regular rate and rhythm S1-S2 heard no S3-S4 Abdomen: Soft nontender no voluntary guarding rigidity rebound Extremity: Dry skin less than 1+ peripheral edema Psychiatric: No evidence of agitation and aggression noted Dermatology: No petechial rashes Labs and x-rays: Reviewed from today Objective - Vital Signs Vital signs: Vital Signs - 12hr 03/02/22 03/02/22 03/02/22 21:30 22:00 22:30 Temperature Pulse Rate 76 68 67 Pulse Rate [ From Monitor] Respiratory 18 16 11 L Rate Blood Pressure 105/71 101/75 101/75 O2 Sat by Pulse 95 98 97 Oximetry 03/02/22 03/02/22 03/03/22 23:00 23:30 00:00 Temperature 98.2 F Pulse Rate 78 60 65 Pulse Rate [ 73 From Monitor] Respiratory 16 18 17 Rate Blood Pressure 101/75 114/81 90/59 O2 Sat by Pulse 96 94 95 Oximetry 03/03/22 03/03/22 03/03/22 00:30 01:00 01:30 Temperature Pulse Rate 75 66 66 Pulse Rate [ From Monitor] Respiratory 12 18 17 Rate Blood Pressure 90/59 89/56 89/56 O2 Sat by Pulse 95 94 94 Oximetry 03/03/22 03/03/22 03/03/22 02:00 02:31 04:00 Temperature 98.9 F Pulse Rate 89 62 72 Pulse Rate [ 69 From Monitor] Respiratory 13 15 15 Rate Blood Pressure 89/56 118/82 O2 Sat by Pulse 97 97 95 Oximetry 03/03/22 07:56 Temperature Pulse Rate 62 Pulse Rate [ 62 From Monitor] Respiratory 15 Rate Blood Pressure O2 Sat by Pulse 99 Oximetry - Lab 03/03/22 04:03 03/03/22 04:03 Most recent lab results ABG pH 7.406 pH Units (7.350-7.450) 03/02/22 10:48 ABG pCO2 41.3 mm Hg 03/02/22 10:48 ABG pO2 124.7 mm Hg (80.0-90.0) H 03/02/22 10:48 ABG HCO3 25.4 mmol/L (20.0-26.0) 03/02/22 10:48 ABG O2 Saturation 98.4 % (95.0-99.0) 03/02/22 10:48 Calcium 9.6 mg/dL (8.4-10.2) 03/03/22 04:03 Magnesium 2.10 mg/dL (1.7-2.3) 03/02/22 11:37 Urine Creatinine 114.3 mg/dL (0.1-20.0) H 03/01/22 11:17 Urine Sodium 51 mmol/L 03/01/22 11:17 Medications & Allergies - Medications Allergies/Adverse Reactions: Allergies No Known Allergies Allergy (Verified 02/28/22 21:15) Home Medications: Home Medications Medication Instructions Recorded Confirmed Last Taken Type No Known Home Medications [No 03/01/22 03/01/22 Unknown History Reported Home Medications] Active Medications: Generic Name Dose Route Start Last Admin Trade Name Freq PRN Reason Stop Dose Admin Acetaminophen 650 mg 03/01/22 00:07 03/01/22 11:50 Acetaminophen 650 Mg Rect Supp FL 650 mg Q6H PRN Administration Pain MILD(1-3)/Fever >100.5/RAINEY Aspirin 81 mg 03/02/22 10:00 03/02/22 09:19 Aspirin 81 Mg Tab Chew FEEDTUBE 81 mg QDAY MARTINEZ Administration Atorvastatin Calcium 40 mg 03/01/22 22:00 03/02/22 21:19 Atorvastatin 40 Mg Tab FEEDTUBE 40 mg QHS MARTINEZ Administration Dextrose 50 ml 03/01/22 09:03 03/01/22 09:18 Dextrose 50% In Water (25gm) 50 Ml Syringe IV 15 ml Q30MIN PRN Administration Hypoglycemia Protocol Famotidine 10 mg 03/03/22 10:00 Famotidine 10 Mg Tab PO BID MARTINEZ Haloperidol Lactate 5 mg 03/01/22 13:57 03/01/22 14:34 Haloperidol Lactate 5 Mg/1 Ml Inj IV 03/03/22 13:56 5 mg Q6H PRN Administration Agitation Heparin Sodium (Porcine) 5,000 unit 03/01/22 14:00 03/03/22 06:07 Heparin 5,000 Unit/1 Ml Vial SUB-Q 5,000 unit Q8HR MARTINEZ Administration Levofloxacin/Dextrose 500 mg in 100 mls @ 100 mls/hr 03/01/22 13:00 03/02/22 12:04 Levaquin 500mg/100ml IV 03/05/22 13:59 100 mls/hr Q24H MARTINEZ Administration Protocol Magnesium Hydroxide 30 ml 03/01/22 00:07 Magnesium Hydroxide (Mom) Oral Liqd Udc PO Q4H PRN Constipation Ondansetron HCl 4 mg 03/01/22 00:07 Ondansetron 4 Mg/2 Ml Inj IV Q8H PRN Nausea And Vomiting Senna/Docusate Sodium 1 tab 03/03/22 22:00 Sennosides/Docusate Sodium 8.6/50 Mg Tab PO QHS MARTINEZ Sodium Chloride 10 ml 03/01/22 10:00 03/02/22 21:19 Sodium Chloride 0.9% 10 Ml Flush Syringe IV 10 ml BID MARTINEZ Administration Sodium Chloride 10 ml 03/01/22 00:07 Sodium Chloride 0.9% 10 Ml Flush Syringe IV PRN PRN LINE FLUSH
[2022-03-03] MEDS: FAMOTIDINE 10 MG TAB PO SCH ×2 (09:32→22:15)
[2022-03-03] MEDS: ASPIRIN 81 MG TAB CHEW FEEDTUBE SCH (09:32)
--- NOTE | 2022-03-03 10:44 | Progress Note ---
<JUANITO CURTIS - Last Filed: 03/03/22 15:50> Assessment and Plan Assessment and plan: This is a 47-year-old male with history of drug abuse and possible open heart surgery 25 years admitted for AMS and acute hypoxic respiratory failure requiring ventilatory support Hospital Course to Date: 03/01: Patient seen and examined at the bedside. Intubated, off sedation this am. Remains lethargic but arousable, following simple commands. Keep sedation off for now, plan for possible PSV trial when more awake. Patient hypoglycemic this am, IVF switched to D5NS, BG check Q4hrs. Elevated TroponinX2, Cardiology consulted for NSTEMI, continue to trend cardiac enzymes. Nephrology is also following for TABATHA, continue IVF rehydration for now. 03/02: Remains intubated, off sedation, following commands and appropriate. Patient is tolerating PSV trial this am, possible extubation today. Empiric IV abx was initiated yesterday due to high fevers. Fever improved this am and patient remains hemodynamically stable. Continue IV Abx for now, blood cultures and procal pending. Renal function improved this am, 2D echo pending. Continue to monitor renal function and electrolytes, replete as needed. Nephrology is also following. 03/03: s/p extubation now stable on RA. C/o of generalized weakness, otherwise in no acute distress. PT/OT eval and treat ordered. Renal function normalized, monitor and replete electrolytes as needed. Remains on IV abx X5days, procal noted, blood cultures still pending. Patient remains afebrile and hemodynamically stable. Consider D/C IV antibiotics if cultures are negative. Patient is stable for transfer to the floor. Assessment and Plan #Acute Hypoxic Respiratory Failure - most likely due to drug abuse, found unresponsive at home, UDS +cocaine - Patient was hypoxic in the ED, SPO2 in the 80s on NRB - Intubated in the ED on 03/01 - 03/03 extubated, now stable on RA - CCM consulted, appreciate recommendations - Aspiration precaution HOB above 30 - PRN O2 supplementation - Continue SPO2 monitoring for SPO2 goal above 92% #Acute Toxic Encephalopathy-resolved #Cocaine Abuse - Found unresponsive at home by family - UDS +cocaine - CT Brain/brain with no acute intracranial abnormality. - Wile awake, following commands this am - Avoid benzodiazepine to reduce the possibility of delirium - PRN analgesia for CPOT greater than 3 - Maintenance of sleep-wake cycle - Substance abuse cessation education provided and detox resources offered. - Patient verbalized understanding of info provided and stated "he is done with drugs" and refused resources at this time #NSTEMI - Presented with elevated troponin - EKG reviewed with ST, HR in the 100s, no significant ST changes - Remain ins SR, HR in the 60-80, VSS - Cardiology on consult, appreciated recommendations - 2D echo pending - Continue Heparin SubQ for VTE proh - Continue blood pressure monitor per protocol - Maintain MAP above 65 #Acute Kidney Injury(TABATHA) #Hyponatremia-improved - Vasomotor nephropathy vs Pre-renal - Renal function improved this am - 2D echo pending - Nephrology consulted, appreciated recommendations - Strict intake and output - Avoid nephrotoxic medications; Renally dose medications - Monitor and replace electrolytes as needed #Fevers-resolved - Probably due to substances abuse, however infectious process can't be excluded - Afebrile this am, WBCs and lactic wnr - UA with elevated WBCs, neg nitrates and small leukocytes - Cultures and Procal noted - BLE doppler neg DVT - Continue empiric IV abx for now - Continue to F/U cultures - Daily CBC monitor - Consider D/C IV antibiotics if cultures are negative #Hypoglycemia-resolved - Per EMS BG was in the 20s in the field s/p D50w - Continue Hypoglycemic protocol - BG check ACHS - Avoid hypoglycemia #Elevated D-Dimer - VQ scan was low probability for pulmonary embolism - BLE doppler negative DVT - Heparin subQ for VTE proph #GI/DVT Prophylaxis - PPI- Pepcid - Heparin subQ - SCDs to bilateral lower extremities while in bed #Advance Care Planning - Diagnosis, plan of care, and prognosis discussed with patient. Patient verbalized understanding and agreed with current plan of care. - Substance abuse cessation education provided and detox resources offered. Patient verbalized understanding of info provided and stated "he is done with drugs" and refused resources at this time The high probability of a clinically significant, sudden or life threatening deterioration of the [multiple] system(s) required my full and direct attention, intervention and personal management. The aggregate critical care time was [60] minutes. This time is in addition to time spent performing reported procedures but includes the following: [x] Data Review and interpretation [x] Patient assessment and monitoring of vital signs [x] Documentation [x] Medication orders and management Disposition Plan: ICU Total Time Spent with Patient (Minutes): 60 History Interval history: Patient seen and examined at the bedside. s/p extubation, now stable on RA. Patient voiced generalized weakness but denied any pain nor any discomfort at this time. Remains febrile and hemodynamically stable. GABRIELLE overnight Hospitalist Physical - Constitutional Vitals: Temp Pulse Resp BP Pulse Ox 97.6 F 62 15 118/82 99 03/03/22 08:00 03/03/22 07:56 03/03/22 07:56 03/03/22 02:31 03/03/22 07:56 General appearance: Present: no acute distress, cachectic - EENT Eyes: Present: PERRL, EOM intact ENT: hearing intact, other (Dry oral mucosa) - Neck Neck: Present: normal ROM - Respiratory Respiratory effort: normal Respiratory: bilateral: diminished - Cardiovascular Rhythm: regular Heart Sounds: Present: S1 & S2 - Extremities Extremities: no ischemia, pulses intact, pulses symmetrical Peripheral Pulses: within normal limits - Abdominal General gastrointestinal: soft, non-distended, normal bowel sounds - Integumentary Integumentary: Present: clear, warm, dry - Psychiatric Psychiatric: appropriate mood/affect, cooperative - Neurologic Neurologic: CNII-XII intact, moves all extremities - Allied Health Allied health notes reviewed: nursing, case management HEART Score - HEART Score Troponin: Troponin T 0.055 ng/mL (0.00-0.029) H 03/01/22 09:42 Results - Labs CBC & Chem 7: 03/03/22 04:03 03/03/22 04:03 Labs: Laboratory Last Values WBC 9.2 K/mm3 (4.5-11.0) 03/03/22 04:03 RBC 4.08 M/mm3 (3.65-5.03) 03/03/22 04:03 Hgb 14.2 gm/dl (11.8-15.2) 03/03/22 04:03 Hct 42.0 % (35.5-45.6) 03/03/22 04:03 MCV 103 fl (84-94) H 03/03/22 04:03 MCH 35 pg (28-32) H 03/03/22 04:03 MCHC 34 % (32-34) 03/03/22 04:03 RDW 16.1 % (13.2-15.2) H 03/03/22 04:03 Plt Count 408 K/mm3 (140-440) 03/03/22 04:03 Lymph % (Auto) 10.4 % (13.4-35.0) L 03/02/22 04:06 Mccone % (Auto) 6.6 % (0.0-7.3) 03/02/22 04:06 Eos % (Auto) 0.2 % (0.0-4.3) 03/02/22 04:06 Baso % (Auto) 0.2 % (0.0-1.8) 03/02/22 04:06 Lymph # (Auto) 1.2 K/mm3 (1.2-5.4) 03/02/22 04:06 Mccone # (Auto) 0.8 K/mm3 (0.0-0.8) 03/02/22 04:06 Eos # (Auto) 0.0 K/mm3 (0.0-0.4) 03/02/22 04:06 Baso # (Auto) 0.0 K/mm3 (0.0-0.1) 03/02/22 04:06 Seg Neutrophils % 82.6 % (40.0-70.0) H 03/02/22 04:06 Seg Neutrophils # 9.6 K/mm3 (1.8-7.7) H 03/02/22 04:06 PT 13.0 Sec. (12.2-14.9) 02/28/22 19:20 INR 0.89 (0.87-1.13) 02/28/22 19:20 D-Dimer 649.01 ng/mlDDU (0-234) H 02/28/22 Unknown ABG pH 7.406 pH Units (7.350-7.450) 03/02/22 10:48 ABG pCO2 41.3 mm Hg 03/02/22 10:48 ABG pO2 124.7 mm Hg (80.0-90.0) H 03/02/22 10:48 ABG HCO3 25.4 mmol/L (20.0-26.0) 03/02/22 10:48 ABG O2 Saturation 98.4 % (95.0-99.0) 03/02/22 10:48 ABG O2 Content 19.3 (0.0-44) 03/02/22 10:48 ABG Base Excess 0.6 mmol/L (-2.0-3.0) 03/02/22 10:48 ABG Hemoglobin 14.0 gm/dl (14.0-18.0) 03/02/22 10:48 ABG Carboxyhemoglobin 1.1 % (0.0-5.0) 03/02/22 10:48 ABG Methemoglobin 0.5 % (0.0-1.5) 03/02/22 10:48 Oxyhemoglobin 96.8 % (95.0-99.0) 03/02/22 10:48 FiO2 40 % 03/02/22 10:48 Sodium 137 mmol/L (137-145) 03/02/22 04:06 Potassium 4.9 mmol/L (3.6-5.0) 03/02/22 04:06 Chloride 100.6 mmol/L (98-107) 03/02/22 04:06 Carbon Dioxide 28 mmol/L (22-30) 03/03/22 04:03 Anion Gap 16 mmol/L 03/02/22 04:06 BUN 10 mg/dL (9-20) 03/03/22 04:03 Creatinine 1.0 mg/dL (0.8-1.3) 03/03/22 04:03 Estimated GFR > 60 ml/min 03/03/22 04:03 BUN/Creatinine Ratio 10 % 03/03/22 04:03 Glucose 107 mg/dL (75-100) H 03/03/22 04:03 POC Glucose 124 mg/dL (70-105) H 03/03/22 07:31 Osmolality 295 Mosm/kg 03/01/22 12:04 Lactic Acid 0.80 mmol/L (0.7-2.0) 03/01/22 12:04 Uric Acid 10.5 mg/dL (3.5-7.6) H 03/01/22 09:42 Calcium 9.6 mg/dL (8.4-10.2) 03/03/22 04:03 Magnesium 2.10 mg/dL (1.7-2.3) 03/02/22 11:37 Total Bilirubin 0.70 mg/dL (0.1-1.2) 03/02/22 04:06 AST 74 units/L (5-40) H 03/02/22 04:06 ALT 44 units/L (7-56) 03/02/22 04:06 Alkaline Phosphatase 147 units/L (35-129) H 03/02/22 04:06 Total Creatine Kinase 979 units/L (55-170) H 03/01/22 09:42 CK-MB (CK-2) 14.2 ng/mL (0.0-4.0) H 03/01/22 09:42 CK-MB (CK-2) Rel Index 1.4 (0-4) 03/01/22 09:42 Troponin T 0.055 ng/mL (0.00-0.029) H 03/01/22 09:42 C-Reactive Protein 8.20 mg/dL (0.00-1.30) H 03/01/22 12:04 Total Protein 6.6 g/dL (6.3-8.2) 03/02/22 04:06 Albumin 3.3 g/dL (3.9-5) L 03/02/22 04:06 Albumin/Globulin Ratio 1.0 % 03/02/22 04:06 Triglycerides 141 mg/dL (2-149) 02/28/22 19:20 Cholesterol 170 mg/dL (50-199) 02/28/22 19:20 LDL Cholesterol Direct 89 mg/dL (50-130) 02/28/22 19:20 HDL Cholesterol 70 mg/dL (40-59) H 02/28/22 19:20 Cholesterol/HDL Ratio 2.42 % 02/28/22 19:20 Procalcitonin 6.44 ng/mL (<0.15) 03/01/22 12:04 TSH 1.100 mlU/mL (0.270-4.200) 02/28/22 19:20 Free T4 1.06 ng/dL (0.76-1.46) 02/28/22 19:20 Urine Color Yellow (Yellow) 03/01/22 11:17 Urine Turbidity Clear (Clear) 03/01/22 11:17 Urine pH 5.0 (5.0-7.0) 03/01/22 11:17 Ur Specific [place] 1.015 (1.003-1.030) 03/01/22 11:17 Urine Protein 30 mg/dl mg/dL (Negative) 03/01/22 11:17 Urine Glucose (UA) Neg mg/dL (Negative) 03/01/22 11:17 Urine Ketones 20 mg/dL (Negative) 03/01/22 11:17 Urine Blood Mod (Negative) 03/01/22 11:17 Urine Nitrite Neg (Negative) 03/01/22 11:17 Urine Bilirubin Neg (Negative) 03/01/22 11:17 Urine Urobilinogen < 2.0 mg/dL (<2.0) 03/01/22 11:17 Ur Leukocyte Esterase Sm (Negative) 03/01/22 11:17 Urine WBC (Auto) 21.0 /HPF (0.0-6.0) H 03/01/22 11:17 Urine RBC (Auto) 25.0 /HPF (0.0-6.0) 03/01/22 11:17 U Epithel Cells (Auto) 8.0 /HPF (0-13.0) 03/01/22 11:17 Urine Bacteria (Auto) 1+ /HPF (Negative) 03/01/22 11:17 Hyaline Casts 18 /LPF 03/01/22 11:17 Urine Mucus Few /HPF 03/01/22 11:17 Urine Osmolality 551 Mosm/kg 03/01/22 11:17 Urine Creatinine 114.3 mg/dL (0.1-20.0) H 03/01/22 11:17 Urine Sodium 51 mmol/L 03/01/22 11:17 Salicylates < 0.3 mg/dL (2.8-20.0) L 02/28/22 19:20 Urine Opiates Screen Presumptive negative 02/28/22 Unknown Urine Methadone Screen Presumptive negative 02/28/22 Unknown Acetaminophen 5.0 ug/mL (10.0-30.0) L 02/28/22 19:20 Ur Barbiturates Screen Presumptive negative 02/28/22 Unknown Ur Phencyclidine Scrn Presumptive negative 02/28/22 Unknown Ur Amphetamines Screen Presumptive negative 02/28/22 Unknown U Benzodiazepines Scrn Presumptive negative 02/28/22 Unknown Urine Cocaine Screen Presumptive positive 02/28/22 Unknown U Marijuana (THC) Screen Presumptive negative 02/28/22 Unknown Drugs of Abuse Note Disclamer 02/28/22 Unknown Plasma/Serum Alcohol < 0.01 % (0-0.07) 02/28/22 19:20 Hepatitis A IgM Ab Non-reactive (NonReactive) 03/01/22 12:04 Hep Bs Antigen Non-reactive (Negative) 03/01/22 12:04 Hep B Core IgM Ab Non-reactive (NonReactive) 03/01/22 12:04 Hepatitis C Antibody Non-reactive (NonReactive) 03/01/22 12:04 Microbiology: Microbiology 02/28/22 22:07 Tracheal Aspirate Sputum Culture - Preliminary 03/02/22 14:00 Peripheral/Venous Blood Culture - Preliminary Culture in Progress 03/02/22 14:00 Peripheral/Venous Blood Culture - Preliminary Culture in Progress 03/01/22 12:24 Urine,Catheterized - Indwelling Catheter Urine Culture - Preliminary NO GROWTH AFTER 24 HOURS Abrams/IV: Voiding Method Condom Catheter Active Medications - Current Medications Current Medications: Generic Name Dose Route Start Last Admin Trade Name Freq PRN Reason Stop Dose Admin Acetaminophen 650 mg 03/01/22 00:07 03/01/22 11:50 Acetaminophen 650 Mg Rect Supp MT 650 mg Q6H PRN Administration Pain MILD(1-3)/Fever >100.5/RAINEY Aspirin 81 mg 03/02/22 10:00 03/03/22 09:32 Aspirin 81 Mg Tab Chew FEEDTUBE 81 mg QDAY MARTINEZ Administration Atorvastatin Calcium 40 mg 03/01/22 22:00 03/02/22 21:19 Atorvastatin 40 Mg Tab FEEDTUBE 40 mg QHS MARTINEZ Administration Dextrose 50 ml 03/01/22 09:03 03/01/22 09:18 Dextrose 50% In Water (25gm) 50 Ml Syringe IV 15 ml Q30MIN PRN Administration Hypoglycemia Protocol Famotidine 10 mg 03/03/22 10:00 03/03/22 09:32 Famotidine 10 Mg Tab PO 10 mg BID MARTINEZ Administration Haloperidol Lactate 5 mg 03/01/22 13:57 03/01/22 14:34 Haloperidol Lactate 5 Mg/1 Ml Inj IV 03/03/22 13:56 5 mg Q6H PRN Administration Agitation Heparin Sodium (Porcine) 5,000 unit 03/01/22 14:00 03/03/22 06:07 Heparin 5,000 Unit/1 Ml Vial SUB-Q 5,000 unit Q8HR MARTINEZ Administration Levofloxacin/Dextrose 500 mg in 100 mls @ 100 mls/hr 03/01/22 13:00 03/02/22 12:04 Levaquin 500mg/100ml IV 03/05/22 13:59 100 mls/hr Q24H MARTINEZ Administration Protocol Magnesium Hydroxide 30 ml 03/01/22 00:07 Magnesium Hydroxide (Mom) Oral Liqd Udc PO Q4H PRN Constipation Ondansetron HCl 4 mg 03/01/22 00:07 Ondansetron 4 Mg/2 Ml Inj IV Q8H PRN Nausea And Vomiting Senna/Docusate Sodium 1 tab 03/03/22 22:00 Sennosides/Docusate Sodium 8.6/50 Mg Tab PO QHS MARTINEZ Sodium Chloride 10 ml 03/01/22 10:00 03/03/22 09:32 Sodium Chloride 0.9% 10 Ml Flush Syringe IV 10 ml BID MARTINEZ Administration Sodium Chloride 10 ml 03/01/22 00:07 Sodium Chloride 0.9% 10 Ml Flush Syringe IV PRN PRN LINE FLUSH Nutrition/Malnutrition Assess - Dietary Evaluation Nutrition/Malnutrition Findings: Nutrition Notes Start: 03/01/22 09:18 Freq: Status: Active Protocol: Document 03/01/22 09:18 LEORA (Rec: 03/01/22 09:30 [facility] [id number]) Nutrition Notes Need for Assessment generated from: MD Order,promotion specialist,MST, Education Initial or Follow up Assessment Current Diagnosis Acute Kidney Injury, Respiratory Failure Other Pertinent Diagnosis AMS, Cocaine dependence Current Diet NPO Labs/Tests (02/28/22) Na 135 Cr 1.7 AST 295 Alk phos 189 Troponin 0.055 Pertinent Medications Propofol at 1.362ml/hr ( provides 36 kcal), NS at 125ml /hr Height 5 ft 9 in Weight 45.4 kg [place] Body Weight (kg) 72.72 BMI 14.8 Weight Status Underweight Subjective/Other Information RD consulted for TF and diet education. Pt also screened for malnutrition and skin risks (Luis score: 14) and low BMI. Pt intubated and not appropriate for diet education at this time. Pt appears to be wt documented at admission; temples slightly depressed and observed fat loss. Burn Absent Trauma Absent Minimum of two criteria Yes Body Fat Depletion Moderate depletion (severe) Muscle Mass Moderate Depletion (severe) #1 Nutrition Diagnosis Inadequate oral intake Etiology mech ventilation As Evidenced by Signs and Symptoms pt NPO Is patient on ventilator? Yes Is Patient Ambulatory and/or Out of Bed No REE-([facility]-confined to bed) 1593.120 Kcal/Kg value to use for calculation 45 Approximate Energy Requirements Using 2043 kcal/Kg Calculation Used for Recommendations Kcal/kg Additional Notes Pro needs 1.2-2g/k-91g/ day Fluid needs 1ml/kcal Nutrition Intervention Nutrition Support: Osmolite 1.5 at 55ml/hr with 150ml water flush q4h. Kcal 1,980 Protein (gm) 83 Carbohydrates (gm) 269 Fat (gm) 65 Fluid (mL) 1,006 Fiber (gm) 0 Goal #1 TF tolerance Goal #2 TF to meet 100% energy and pro needs Goal #3 Wt maintenance and/or gain Anticipated Discharge Needs: Consider an ONS 2-3 times daily for wt maintenance if diet advanced Follow-Up By: 03/04/22 Additional Comments F/U: new TF, vent status, Propofol, renal function <CRISTOPHER KERN - Last Filed: 03/04/22 07:10> Assessment and Plan Assessment and plan: I saw and evaluated the patient. I agree with the findings and the plan of care as documented in the Nurse Practitioner's~note, with the following corrections and additions. Hospitalist Physical - Constitutional Vitals: Temp Pulse Resp BP Pulse Ox 98.4 F 66 18 124/84 97 03/04/22 05:45 03/04/22 05:45 03/04/22 05:45 03/04/22 05:45 03/04/22 05:45 HEART Score - HEART Score Troponin: Troponin T 0.055 ng/mL (0.00-0.029) H 03/01/22 09:42 Results - Labs CBC & Chem 7: 03/03/22 04:03 03/03/22 04:03 Labs: Laboratory Last Values WBC 9.2 K/mm3 (4.5-11.0) 03/03/22 04:03 RBC 4.08 M/mm3 (3.65-5.03) 03/03/22 04:03 Hgb 14.2 gm/dl (11.8-15.2) 03/03/22 04:03 Hct 42.0 % (35.5-45.6) 03/03/22 04:03 MCV 103 fl (84-94) H 03/03/22 04:03 MCH 35 pg (28-32) H 03/03/22 04:03 MCHC 34 % (32-34) 03/03/22 04:03 RDW 16.1 % (13.2-15.2) H 03/03/22 04:03 Plt Count 408 K/mm3 (140-440) 03/03/22 04:03 Lymph % (Auto) 10.4 % (13.4-35.0) L 03/02/22 04:06 Mccone % (Auto) 6.6 % (0.0-7.3) 03/02/22 04:06 Eos % (Auto) 0.2 % (0.0-4.3) 03/02/22 04:06 Baso % (Auto) 0.2 % (0.0-1.8) 03/02/22 04:06 Lymph # (Auto) 1.2 K/mm3 (1.2-5.4) 03/02/22 04:06 Mccone # (Auto) 0.8 K/mm3 (0.0-0.8) 03/02/22 04:06 Eos # (Auto) 0.0 K/mm3 (0.0-0.4) 03/02/22 04:06 Baso # (Auto) 0.0 K/mm3 (0.0-0.1) 03/02/22 04:06 Seg Neutrophils % 82.6 % (40.0-70.0) H 03/02/22 04:06 Seg Neutrophils # 9.6 K/mm3 (1.8-7.7) H 03/02/22 04:06 PT 13.0 Sec. (12.2-14.9) 02/28/22 19:20 INR 0.89 (0.87-1.13) 02/28/22 19:20 D-Dimer 649.01 ng/mlDDU (0-234) H 02/28/22 Unknown ABG pH 7.406 pH Units (7.350-7.450) 03/02/22 10:48 ABG pCO2 41.3 mm Hg 03/02/22 10:48 ABG pO2 124.7 mm Hg (80.0-90.0) H 03/02/22 10:48 ABG HCO3 25.4 mmol/L (20.0-26.0) 03/02/22 10:48 ABG O2 Saturation 98.4 % (95.0-99.0) 03/02/22 10:48 ABG O2 Content 19.3 (0.0-44) 03/02/22 10:48 ABG Base Excess 0.6 mmol/L (-2.0-3.0) 03/02/22 10:48 ABG Hemoglobin 14.0 gm/dl (14.0-18.0) 03/02/22 10:48 ABG Carboxyhemoglobin 1.1 % (0.0-5.0) 03/02/22 10:48 ABG Methemoglobin 0.5 % (0.0-1.5) 03/02/22 10:48 Oxyhemoglobin 96.8 % (95.0-99.0) 03/02/22 10:48 FiO2 40 % 03/02/22 10:48 Sodium 137 mmol/L (137-145) 03/02/22 04:06 Potassium 4.9 mmol/L (3.6-5.0) 03/02/22 04:06 Chloride 100.6 mmol/L (98-107) 03/02/22 04:06 Carbon Dioxide 28 mmol/L (22-30) 03/03/22 04:03 Anion Gap 16 mmol/L 03/02/22 04:06 BUN 10 mg/dL (9-20) 03/03/22 04:03 Creatinine 1.0 mg/dL (0.8-1.3) 03/03/22 04:03 Estimated GFR > 60 ml/min 03/03/22 04:03 BUN/Creatinine Ratio 10 % 03/03/22 04:03 Glucose 107 mg/dL (75-100) H 03/03/22 04:03 POC Glucose 95 mg/dL (70-105) 03/03/22 15:55 Osmolality 295 Mosm/kg 03/01/22 12:04 Lactic Acid 0.80 mmol/L (0.7-2.0) 03/01/22 12:04 Uric Acid 10.5 mg/dL (3.5-7.6) H 03/01/22 09:42 Calcium 9.6 mg/dL (8.4-10.2) 03/03/22 04:03 Magnesium 2.10 mg/dL (1.7-2.3) 03/02/22 11:37 Total Bilirubin 0.70 mg/dL (0.1-1.2) 03/02/22 04:06 AST 74 units/L (5-40) H 03/02/22 04:06 ALT 44 units/L (7-56) 03/02/22 04:06 Alkaline Phosphatase 147 units/L (35-129) H 03/02/22 04:06 Total Creatine Kinase 979 units/L (55-170) H 03/01/22 09:42 CK-MB (CK-2) 14.2 ng/mL (0.0-4.0) H 03/01/22 09:42 CK-MB (CK-2) Rel Index 1.4 (0-4) 03/01/22 09:42 Troponin T 0.055 ng/mL (0.00-0.029) H 03/01/22 09:42 C-Reactive Protein 8.20 mg/dL (0.00-1.30) H 03/01/22 12:04 Total Protein 6.6 g/dL (6.3-8.2) 03/02/22 04:06 Albumin 3.3 g/dL (3.9-5) L 03/02/22 04:06 Albumin/Globulin Ratio 1.0 % 03/02/22 04:06 Triglycerides 141 mg/dL (2-149) 02/28/22 19:20 Cholesterol 170 mg/dL (50-199) 02/28/22 19:20 LDL Cholesterol Direct 89 mg/dL (50-130) 02/28/22 19:20 HDL Cholesterol 70 mg/dL (40-59) H 02/28/22 19:20 Cholesterol/HDL Ratio 2.42 % 02/28/22 19:20 Procalcitonin 6.44 ng/mL (<0.15) 03/01/22 12:04 TSH 1.100 mlU/mL (0.270-4.200) 02/28/22 19:20 Free T4 1.06 ng/dL (0.76-1.46) 02/28/22 19:20 Urine Color Yellow (Yellow) 03/01/22 11:17 Urine Turbidity Clear (Clear) 03/01/22 11:17 Urine pH 5.0 (5.0-7.0) 03/01/22 11:17 Ur Specific [place] 1.015 (1.003-1.030) 03/01/22 11:17 Urine Protein 30 mg/dl mg/dL (Negative) 03/01/22 11:17 Urine Glucose (UA) Neg mg/dL (Negative) 03/01/22 11:17 Urine Ketones 20 mg/dL (Negative) 03/01/22 11:17 Urine Blood Mod (Negative) 03/01/22 11:17 Urine Nitrite Neg (Negative) 03/01/22 11:17 Urine Bilirubin Neg (Negative) 03/01/22 11:17 Urine Urobilinogen < 2.0 mg/dL (<2.0) 03/01/22 11:17 Ur Leukocyte Esterase Sm (Negative) 03/01/22 11:17 Urine WBC (Auto) 21.0 /HPF (0.0-6.0) H 03/01/22 11:17 Urine RBC (Auto) 25.0 /HPF (0.0-6.0) 03/01/22 11:17 U Epithel Cells (Auto) 8.0 /HPF (0-13.0) 03/01/22 11:17 Urine Bacteria (Auto) 1+ /HPF (Negative) 03/01/22 11:17 Hyaline Casts 18 /LPF 03/01/22 11:17 Urine Mucus Few /HPF 03/01/22 11:17 Urine Osmolality 551 Mosm/kg 03/01/22 11:17 Urine Creatinine 114.3 mg/dL (0.1-20.0) H 03/01/22 11:17 Urine Sodium 51 mmol/L 03/01/22 11:17 Salicylates < 0.3 mg/dL (2.8-20.0) L 02/28/22 19:20 Urine Opiates Screen Presumptive negative 02/28/22 Unknown Urine Methadone Screen Presumptive negative 02/28/22 Unknown Acetaminophen 5.0 ug/mL (10.0-30.0) L 02/28/22 19:20 Ur Barbiturates Screen Presumptive negative 02/28/22 Unknown Ur Phencyclidine Scrn Presumptive negative 02/28/22 Unknown Ur Amphetamines Screen Presumptive negative 02/28/22 Unknown U Benzodiazepines Scrn Presumptive negative 02/28/22 Unknown Urine Cocaine Screen Presumptive positive 02/28/22 Unknown U Marijuana (THC) Screen Presumptive negative 02/28/22 Unknown Drugs of Abuse Note Disclamer 02/28/22 Unknown Plasma/Serum Alcohol < 0.01 % (0-0.07) 02/28/22 19:20 Hepatitis A IgM Ab Non-reactive (NonReactive) 03/01/22 12:04 Hep Bs Antigen Non-reactive (Negative) 03/01/22 12:04 Hep B Core IgM Ab Non-reactive (NonReactive) 03/01/22 12:04 Hepatitis C Antibody Non-reactive (NonReactive) 03/01/22 12:04 Microbiology: Microbiology 03/02/22 14:00 Peripheral/Venous Blood Culture - Preliminary NO GROWTH AFTER 24 HOURS 03/02/22 14:00 Peripheral/Venous Blood Culture - Preliminary NO GROWTH AFTER 24 HOURS 02/28/22 22:07 Tracheal Aspirate Sputum Culture - Final 03/01/22 12:24 Urine,Catheterized - Indwelling Catheter Urine Culture - Final NO GROWTH AFTER 48 HOURS Abrams/IV: Voiding Method Condom Catheter Active Medications - Current Medications Current Medications: Generic Name Dose Route Start Last Admin Trade Name Freq PRN Reason Stop Dose Admin Acetaminophen 650 mg 03/01/22 00:07 03/01/22 11:50 Acetaminophen 650 Mg Rect Supp MT 650 mg Q6H PRN Administration Pain MILD(1-3)/Fever >100.5/RAINEY Aspirin 81 mg 03/02/22 10:00 03/03/22 09:32 Aspirin 81 Mg Tab Chew FEEDTUBE 81 mg QDAY MARTINEZ Administration Atorvastatin Calcium 40 mg 03/01/22 22:00 03/03/22 22:15 Atorvastatin 40 Mg Tab FEEDTUBE 40 mg QHS MARTINEZ Administration Dextrose 50 ml 03/01/22 09:03 03/01/22 09:18 Dextrose 50% In Water (25gm) 50 Ml Syringe IV 15 ml Q30MIN PRN Administration Hypoglycemia Protocol Famotidine 10 mg 03/03/22 10:00 03/03/22 22:15 Famotidine 10 Mg Tab PO 10 mg BID MARTINEZ Administration Heparin Sodium (Porcine) 5,000 unit 03/01/22 14:00 03/04/22 06:23 Heparin 5,000 Unit/1 Ml Vial SUB-Q 5,000 unit Q8HR MARTINEZ Administration Levofloxacin/Dextrose 500 mg in 100 mls @ 100 mls/hr 03/01/22 13:00 03/03/22 12:38 Levaquin 500mg/100ml IV 03/05/22 13:59 100 mls/hr Q24H MARTINEZ Administration Protocol Magnesium Hydroxide 30 ml 03/01/22 00:07 Magnesium Hydroxide (Mom) Oral Liqd Udc PO Q4H PRN Constipation Ondansetron HCl 4 mg 03/01/22 00:07 Ondansetron 4 Mg/2 Ml Inj IV Q8H PRN Nausea And Vomiting Senna/Docusate Sodium 1 tab 03/03/22 22:00 03/03/22 22:15 Sennosides/Docusate Sodium 8.6/50 Mg Tab PO 1 tab QHS MARTINEZ Administration Sodium Chloride 10 ml 03/01/22 10:00 03/03/22 22:16 Sodium Chloride 0.9% 10 Ml Flush Syringe IV 10 ml BID MARTINEZ Administration Sodium Chloride 10 ml 03/01/22 00:07 Sodium Chloride 0.9% 10 Ml Flush Syringe IV PRN PRN LINE FLUSH Nutrition/Malnutrition Assess - Dietary Evaluation Nutrition/Malnutrition Findings: Nutrition Notes Start: 03/01/22 09:18 Freq: Status: Active Protocol: Document 03/01/22 09:18 [facility] (Rec: 03/01/22 09:30 [facility] [id number]) Nutrition Notes Need for Assessment generated from: MD Order,promotion specialist,MST, Education Initial or Follow up Assessment Current Diagnosis Acute Kidney Injury, Respiratory Failure Other Pertinent Diagnosis AMS, Cocaine dependence Current Diet NPO Labs/Tests (02/28/22) Na 135 Cr 1.7 AST 295 Alk phos 189 Troponin 0.055 Pertinent Medications Propofol at 1.362ml/hr ( provides 36 kcal), NS at 125ml /hr Height 5 ft 9 in Weight 45.4 kg [place] Body Weight (kg) 72.72 BMI 14.8 Weight Status Underweight Subjective/Other Information RD consulted for TF and diet education. Pt also screened for malnutrition and skin risks (Luis score: 14) and low BMI. Pt intubated and not appropriate for diet education at this time. Pt appears to be wt documented at admission; temples slightly depressed and observed fat loss. Burn Absent Trauma Absent Minimum of two criteria Yes Body Fat Depletion Moderate depletion (severe) Muscle Mass Moderate Depletion (severe) #1 Nutrition Diagnosis Inadequate oral intake Etiology mech ventilation As Evidenced by Signs and Symptoms pt NPO Is patient on ventilator? Yes Is Patient Ambulatory and/or Out of Bed No REE-([facility]-confined to bed) 1593.120 Kcal/Kg value to use for calculation 45 Approximate Energy Requirements Using 3 kcal/Kg Calculation Used for Recommendations Kcal/kg Additional Notes Pro needs 1.2-2g/k-91g/ day Fluid needs 1ml/kcal Nutrition Intervention Nutrition Support: Osmolite 1.5 at 55ml/hr with 150ml water flush q4h. Kcal 1,980 Protein (gm) 83 Carbohydrates (gm) 269 Fat (gm) 65 Fluid (mL) 1,006 Fiber (gm) 0 Goal #1 TF tolerance Goal #2 TF to meet 100% energy and pro needs Goal #3 Wt maintenance and/or gain Anticipated Discharge Needs: Consider an ONS 2-3 times daily for wt maintenance if diet advanced Follow-Up By: 03/04/22 Additional Comments F/U: new TF, vent status, Propofol, renal function
--- NOTE | 2022-03-03 13:43 | Progress Note ---
Assessment and Plan Acute hypoxemic respiratory failure on MVS Cocaine abuse Acute encephalopathy Non-ST elevation myocardial infarction Cardiomyopathy (s/p stab and CTSU) Acute kidney injury (cardiorenal versus prerenal syndrome) Severe protein calorie malnutrition Possible urinary tract infection - 2D ECHO shows EF 40-45% - prn supplemental oxygen for target O2 sat's > 90% acutely - aspiration precautions - prn bronchodilators with pulmonary hygiene per RT - avoid nephrotoxins, renally dose all medications - continue accuchecks with glycemic control per SSI for target blood glucose < 180 mg/dL - AB's per ID rec's - prn analgesia per pain score - tobacco and cocaine abstinence strongly counseled at bedside - Maintenance of sleep-wake cycle, avoid delirium - G.I. & VTE prophylaxis - PT/OT/ROM exercises - continue mobility protocols for pressure ulcer prophylaxis - Monitor hemodynamics closely - continue other care per attending / other consultants - discharge planning ongoing concurrently .... Re-evaluate in am & prn Subjective Date of service: 03/03/22 Principal diagnosis: AHRF; Cocaine OD; AMS; NSTEMI; CMOP; TABATHA; Protein calorie malnutritition Interval history: Patient is seen today for: Acute hypoxemic respiratory failure; Cocaine abuse; AMS; NSTEMI; CMOP; TABATHA; Severe protein calorie malnutrition Seen and examined at bedside; 24hour events reviewed; nursing and respiratory care staff consulted; no adverse overnight events reported to me; resting peacefully in bed; doing well post extubation; denies chest pain or palpitations; not SOB; no N/V/F/C Objective Vital Signs - 12hr 03/03/22 03/03/22 03/03/22 02:00 02:31 04:00 Temperature 98.9 F Pulse Rate 89 62 72 Pulse Rate [ 69 From Monitor] Pulse Rate [ 61 None] Respiratory 13 15 16 Rate Blood Pressure 89/56 118/82 107/74 O2 Sat by Pulse 97 97 96 Oximetry 03/03/22 03/03/22 03/03/22 05:00 06:00 07:00 Temperature Pulse Rate Pulse Rate [ From Monitor] Pulse Rate [ 59 L 60 58 L None] Respiratory 16 15 16 Rate Blood Pressure 104/86 103/68 100/72 O2 Sat by Pulse 97 97 98 Oximetry 03/03/22 03/03/22 03/03/22 07:56 08:00 09:00 Temperature 97.6 F Pulse Rate 62 Pulse Rate [ 62 From Monitor] Pulse Rate [ 64 56 L None] Respiratory 15 17 16 Rate Blood Pressure 104/76 O2 Sat by Pulse 99 98 97 Oximetry 03/03/22 03/03/22 03/03/22 10:00 11:00 11:19 Temperature Pulse Rate 79 Pulse Rate [ 79 From Monitor] Pulse Rate [ 59 L 62 None] Respiratory 15 16 17 Rate Blood Pressure 107/74 O2 Sat by Pulse 96 96 98 Oximetry 03/03/22 03/03/22 12:05 12:25 Temperature 97.9 F 98.1 F Pulse Rate 76 Pulse Rate [ From Monitor] Pulse Rate [ None] Respiratory 18 Rate Blood Pressure 139/96 O2 Sat by Pulse 98 Oximetry Constitutional: no acute distress Eyes: non-icteric ENT: oropharynx moist, other (extubated) Neck: supple, no lymphadenopathy, no JVD Effort: normal Ascultation: Bilateral: clear Percussion: Bilateral: not dull Cardiovascular: regular rate and rhythm Gastrointestinal: normoactive bowel sounds, soft, non-tender, non-distended Integumentary: other (midline sternal / abdominal post surgical scar) Extremities: no cyanosis, no edema, pulses normal, no ischemia or petechiae Neurologic: normal mental status, non-focal exam, pupils equal and round, motor strength normal and Psychiatric: mood appropriate, affect normal CBC and BMP: 03/03/22 04:03 03/03/22 04:03 ABG, PT/INR, D-dimer: ABG ABG pH 7.406 pH Units (7.350-7.450) 03/02/22 10:48 ABG pCO2 41.3 mm Hg 03/02/22 10:48 ABG pO2 124.7 mm Hg (80.0-90.0) H 03/02/22 10:48 ABG O2 Saturation 98.4 % (95.0-99.0) 03/02/22 10:48 PT/INR, D-dimer PT 13.0 Sec. (12.2-14.9) 02/28/22 19:20 INR 0.89 (0.87-1.13) 02/28/22 19:20 D-Dimer 649.01 ng/mlDDU (0-234) H 02/28/22 Unknown Abnormal lab findings: Abnormal Labs 02/28/22 02/28/22 02/28/22 19:20 19:20 19:20 WBC MCV 105 H MCH 35 H RDW 16.9 H Plt Count 466 H Lymph % (Auto) 9.2 L Lymph # (Auto) 0.9 L Seg Neutrophils % 83.4 H Seg Neutrophils # 8.6 H D-Dimer ABG pH ABG pO2 ABG HCO3 ABG O2 Saturation ABG Base Excess Oxyhemoglobin Sodium 135 L Chloride 93.6 L Carbon Dioxide 16 L BUN Creatinine 1.7 H Glucose 132 H POC Glucose Uric Acid AST 295 H Alkaline Phosphatase 189 H Total Creatine Kinase CK-MB (CK-2) Troponin T 0.055 H C-Reactive Protein Albumin HDL Cholesterol 70 H Urine WBC (Auto) Urine Creatinine Salicylates < 0.3 L Acetaminophen 02/28/22 02/28/22 02/28/22 19:20 20:00 22:00 WBC MCV MCH RDW Plt Count Lymph % (Auto) Lymph # (Auto) Seg Neutrophils % Seg Neutrophils # D-Dimer ABG pH 7.170 L* ABG pO2 392.6 H ABG HCO3 ABG O2 Saturation 99.5 H ABG Base Excess -7.6 L Oxyhemoglobin Sodium Chloride Carbon Dioxide BUN Creatinine Glucose POC Glucose Uric Acid AST Alkaline Phosphatase Total Creatine Kinase 395 H CK-MB (CK-2) 10.3 H Troponin T C-Reactive Protein Albumin HDL Cholesterol Urine WBC (Auto) Urine Creatinine Salicylates Acetaminophen 5.0 L 02/28/22 02/28/22 03/01/22 23:40 Unknown 08:18 WBC MCV MCH RDW Plt Count Lymph % (Auto) Lymph # (Auto) Seg Neutrophils % Seg Neutrophils # D-Dimer 649.01 H ABG pH 7.255 L 7.331 L ABG pO2 119.5 H 79.7 L ABG HCO3 18.5 L 19.3 L ABG O2 Saturation ABG Base Excess -8.3 L -6.0 L Oxyhemoglobin 94.7 L 94.0 L Sodium Chloride Carbon Dioxide BUN Creatinine Glucose POC Glucose Uric Acid AST Alkaline Phosphatase Total Creatine Kinase CK-MB (CK-2) Troponin T C-Reactive Protein Albumin HDL Cholesterol Urine WBC (Auto) Urine Creatinine Salicylates Acetaminophen 03/01/22 03/01/22 03/01/22 08:57 09:42 09:42 WBC MCV MCH RDW Plt Count Lymph % (Auto) Lymph # (Auto) Seg Neutrophils % Seg Neutrophils # D-Dimer ABG pH ABG pO2 ABG HCO3 ABG O2 Saturation ABG Base Excess Oxyhemoglobin Sodium 134 L Chloride Carbon Dioxide 19 L BUN 25 H Creatinine 1.8 H Glucose POC Glucose 67 L Uric Acid 10.5 H AST Alkaline Phosphatase Total Creatine Kinase 979 H CK-MB (CK-2) 14.2 H Troponin T 0.055 H C-Reactive Protein Albumin HDL Cholesterol Urine WBC (Auto) Urine Creatinine Salicylates Acetaminophen 03/01/22 03/01/22 03/01/22 11:17 11:17 12:04 WBC MCV MCH RDW Plt Count Lymph % (Auto) Lymph # (Auto) Seg Neutrophils % Seg Neutrophils # D-Dimer ABG pH ABG pO2 ABG HCO3 ABG O2 Saturation ABG Base Excess Oxyhemoglobin Sodium Chloride Carbon Dioxide BUN Creatinine Glucose POC Glucose Uric Acid AST Alkaline Phosphatase Total Creatine Kinase CK-MB (CK-2) Troponin T C-Reactive Protein 8.20 H Albumin HDL Cholesterol Urine WBC (Auto) 21.0 H Urine Creatinine 114.3 H Salicylates Acetaminophen 03/01/22 03/01/22 03/02/22 13:20 23:20 03:43 WBC MCV MCH RDW Plt Count Lymph % (Auto) Lymph # (Auto) Seg Neutrophils % Seg Neutrophils # D-Dimer ABG pH 7.226 L ABG pO2 ABG HCO3 ABG O2 Saturation 94.8 L ABG Base Excess -5.4 L Oxyhemoglobin 92.9 L Sodium Chloride Carbon Dioxide BUN Creatinine Glucose POC Glucose 140 H 133 H Uric Acid AST Alkaline Phosphatase Total Creatine Kinase CK-MB (CK-2) Troponin T C-Reactive Protein Albumin HDL Cholesterol Urine WBC (Auto) Urine Creatinine Salicylates Acetaminophen 03/02/22 03/02/22 03/02/22 04:06 04:06 07:57 WBC 11.6 H MCV 103 H MCH 35 H RDW 16.6 H Plt Count Lymph % (Auto) 10.4 L Lymph # (Auto) Seg Neutrophils % 82.6 H Seg Neutrophils # 9.6 H D-Dimer ABG pH ABG pO2 ABG HCO3 ABG O2 Saturation ABG Base Excess Oxyhemoglobin Sodium Chloride Carbon Dioxide BUN Creatinine Glucose 122 H POC Glucose 148 H Uric Acid AST 74 H Alkaline Phosphatase 147 H Total Creatine Kinase CK-MB (CK-2) Troponin T C-Reactive Protein Albumin 3.3 L HDL Cholesterol Urine WBC (Auto) Urine Creatinine Salicylates Acetaminophen 03/02/22 03/02/22 03/02/22 10:48 12:07 16:14 WBC MCV MCH RDW Plt Count Lymph % (Auto) Lymph # (Auto) Seg Neutrophils % Seg Neutrophils # D-Dimer ABG pH ABG pO2 124.7 H ABG HCO3 ABG O2 Saturation ABG Base Excess Oxyhemoglobin Sodium Chloride Carbon Dioxide BUN Creatinine Glucose POC Glucose 135 H 120 H Uric Acid AST Alkaline Phosphatase Total Creatine Kinase CK-MB (CK-2) Troponin T C-Reactive Protein Albumin HDL Cholesterol Urine WBC (Auto) Urine Creatinine Salicylates Acetaminophen 03/02/22 03/02/22 03/03/22 19:52 23:21 04:03 WBC MCV 103 H MCH 35 H RDW 16.1 H Plt Count Lymph % (Auto) Lymph # (Auto) Seg Neutrophils % Seg Neutrophils # D-Dimer ABG pH ABG pO2 ABG HCO3 ABG O2 Saturation ABG Base Excess Oxyhemoglobin Sodium Chloride Carbon Dioxide BUN Creatinine Glucose POC Glucose 115 H 112 H Uric Acid AST Alkaline Phosphatase Total Creatine Kinase CK-MB (CK-2) Troponin T C-Reactive Protein Albumin HDL Cholesterol Urine WBC (Auto) Urine Creatinine Salicylates Acetaminophen 03/03/22 03/03/22 03/03/22 04:03 04:05 07:31 WBC MCV MCH RDW Plt Count Lymph % (Auto) Lymph # (Auto) Seg Neutrophils % Seg Neutrophils # D-Dimer ABG pH ABG pO2 ABG HCO3 ABG O2 Saturation ABG Base Excess Oxyhemoglobin Sodium Chloride Carbon Dioxide BUN Creatinine Glucose 107 H POC Glucose 113 H 124 H Uric Acid AST Alkaline Phosphatase Total Creatine Kinase CK-MB (CK-2) Troponin T C-Reactive Protein Albumin HDL Cholesterol Urine WBC (Auto) Urine Creatinine Salicylates Acetaminophen 03/03/22 11:06 WBC MCV MCH RDW Plt Count Lymph % (Auto) Lymph # (Auto) Seg Neutrophils % Seg Neutrophils # D-Dimer ABG pH ABG pO2 ABG HCO3 ABG O2 Saturation ABG Base Excess Oxyhemoglobin Sodium Chloride Carbon Dioxide BUN Creatinine Glucose POC Glucose 124 H Uric Acid AST Alkaline Phosphatase Total Creatine Kinase CK-MB (CK-2) Troponin T C-Reactive Protein Albumin HDL Cholesterol Urine WBC (Auto) Urine Creatinine Salicylates Acetaminophen Allied health notes reviewed: nursing
--- NOTE | 2022-03-03 17:33 | Progress Note ---
Assessment and Plan Assessment: Acute Encephalopathy Acute Respiratory Failure (resolved) Cocaine Abuse Hypoglycemia TABATHA Mild Tn Elevation Cardiomyopathy Plan: Echo reviewed -LV EF 40-45%, normal LV diastolic function, moderate hypokinesis of septum, paradoxical septal motion consistent with conduction abnormality, RV moderately hypokinetic. Continue bASA and statin. Avoid beta blockers due to cocaine use. Will consider addition of DEBI/ARB if renal function remains stable. Plan for Lexiscan stress MPI in AM. NPO after midnight. Pt seen in conjunction with Dr. Mcdowell, who agrees with the assessment and plan of care. - Patient Problems (1) Altered mental status Current Visit: Yes Status: Acute (2) Cocaine abuse Current Visit: Yes Status: Acute Subjective Date of service: 03/03/22 Principal diagnosis: Elevated Tn Interval history: Transferred to floor and resting comfortably on room air. He states he sometimes feels his heart racing. No chest pain, SOB, or additional complaints. Non-compliant with telemetry. Objective Vital Signs Temp Pulse Pulse Pulse Resp BP Pulse Ox 03/03/22 15:57 98.3 F 57 L 16 121/84 98 03/03/22 12:25 98.1 F 76 18 139/96 98 03/03/22 12:05 97.9 F 03/03/22 11:19 79 79 17 98 03/03/22 11:00 62 16 107/74 96 03/03/22 10:00 59 L 15 96 03/03/22 09:00 56 L 16 104/76 97 03/03/22 08:00 97.6 F 64 17 98 03/03/22 07:56 62 62 15 99 03/03/22 07:00 58 L 16 100/72 98 03/03/22 06:00 60 15 103/68 97 03/03/22 05:00 59 L 16 104/86 97 03/03/22 04:00 98.9 F 72 69 61 16 107/74 96 03/03/22 02:31 62 15 118/82 97 03/03/22 02:00 89 13 89/56 97 03/03/22 01:30 66 17 89/56 94 03/03/22 01:00 66 18 89/56 94 03/03/22 00:30 75 12 90/59 95 03/03/22 00:00 98.2 F 65 73 17 90/59 95 03/02/22 23:30 60 18 114/81 94 03/02/22 23:00 78 16 101/75 96 03/02/22 22:30 67 11 L 101/75 97 03/02/22 22:00 68 16 101/75 98 03/02/22 21:30 76 18 105/71 95 03/02/22 21:02 75 18 105/71 95 03/02/22 21:00 72 19 105/71 96 03/02/22 20:30 84 17 121/79 95 03/02/22 20:08 94 03/02/22 20:00 98.2 F 73 74 19 121/79 96 03/02/22 19:30 78 16 96/68 93 03/02/22 19:00 74 14 96/68 97 03/02/22 18:30 66 17 113/72 95 03/02/22 18:00 67 14 113/72 96 - Physical Examination General: No Apparent Distress HEENT: Positive: EOMI, Normocephaly Neck: Positive: neck supple, trachea midline. Negative: JVD/HJR Cardiac: Positive: Reg Rate and Rhythm, S1/S2 Lungs: Positive: clear to auscultation Neuro: Positive: Grossly Intact Abdomen: Positive: Soft. Negative: Tender Skin: Negative: Rash Musculoskeletal: No Pain Extremities: Present: lower extr. pulses, warm. Absent: edema - Labs and Meds CBC 03/03/22 Range/Units 04:03 WBC 9.2 (4.5-11.0) K/mm3 RBC 4.08 (3.65-5.03) M/mm3 Hgb 14.2 (11.8-15.2) gm/dl Hct 42.0 (35.5-45.6) % Plt Count 408 (140-440) K/mm3 Comprehensive Metabolic Panel 03/03/22 Range/Units 04:03 Carbon Dioxide 28 (22-30) mmol/L BUN 10 (9-20) mg/dL Creatinine 1.0 (0.8-1.3) mg/dL Glucose 107 H (75-100) mg/dL Calcium 9.6 (8.4-10.2) mg/dL - Imaging and Cardiology EKG: report reviewed, image reviewed Echo: report reviewed - Telemetry EKG Rhythm: Sinus Rhythm - EKG Sinus rhythms and dysrhythmias: sinus tachycardia - Allied health notes Allied health notes reviewed: nursing
[2022-03-03] MEDS: SENNOSIDES/DOCUSATE SODIUM 8.6/50 MG TAB PO SCH (22:15)
[2022-03-04] MEDS: HEPARIN 5,000 UNIT/1 ML VIAL SUB-Q SCH ×3 (06:23→21:38)
--- NOTE | 2022-03-04 07:11 | Ultrasound Report ---
ULTRASOUND RENAL INDICATION / CLINICAL INFORMATION: TABATHA. COMPARISON: None available. FINDINGS: RIGHT KIDNEY: Size (in cm): 11.5 - Echogenicity: Normal. - Parenchymal Thickness: Normal. - Hydronephrosis: None. - Cyst or mass: No significant abnormality. - Stones: None seen. LEFT KIDNEY: Size (in cm): 9.6 - Echogenicity: Normal. - Parenchymal Thickness: Normal. - Hydronephrosis: None. - Cyst or mass: 1.1 cm cyst at the upper pole - Stones: None seen. URINARY BLADDER: No significant abnormality. FREE FLUID: None. ADDITIONAL FINDINGS: None. IMPRESSION: 1. No acute abnormality. Signer Name: Eric Holder MD Signed: 03/04/2022 7:07 AM Workstation Name: [id number]
--- NOTE | 2022-03-04 08:13 | Progress Note ---
Assessment and Plan 47-year-old male with no significant past medical history brought into the emergency room today via EMS for changes in mental status. Patient was said to have been found by family at home unresponsive. EMS was therefore called. Blood glucose was found to be 25, patient was admitted D50 and Narcan 4 mg. Patient became more arousable and combative. According to family, patient has known history of drug abuse. Upon arrival in the emergency room, patient was found to be febrile back with and had to be restrained. Patient later became hypoxic and placed on nonrebreather and subsequently had to be intubated. Work-up in the emergency room , labs reveals a D-dimer 649, creatinine of 1.7, troponin of 0.055, UDS was positive for cocaine. Chest x-ray was unremarkable. Head CT scan also unremarkable. VQ scan was low probability for pulmonary embolism. Patient has history of smoking 3 cigaretts a day x 20 years. Counseled to stop smoking. Drinks alcohol now and then. Patient has history of cocaine abuse. Worked with [employer] before. Not working now. Not . Has one daughter. No known drug allergies. Patient extubated and transfered to floor. Patient awake. On room air. O2 saturation 97%. Sitting up in chair. No acute respiratory distress. Patient afebrile. No leukocytosis. Blood pressure 124/84, pulse 66, respirations 18. Patient has myocardial perfusion scan to day 03/04/22 reported mildly reduced left ventricular systolic function. Reported no ischemia. Patient is on S/C Heparin, famotidine, aspirine and Levaquin. - Patient Problems (1) Respiratory failure Current Visit: Yes Status: Acute Plan to address problem: Intubated and extubated. Patient presently on room air. o2 saturation 97% Couseled to stop smoking. PFTs as out patient. (2) TABATHA (acute kidney injury) Current Visit: Yes Status: Acute Plan to address problem: Management as per nephrology. (3) Altered mental status Current Visit: Yes Status: Acute Plan to address problem: Patient awake and oriented now. Management as per primary care. (4) Cocaine abuse Current Visit: Yes Status: Acute Plan to address problem: Counseled to stop using illegal drugs. (5) Nicotine dependence Current Visit: Yes Status: Acute Plan to address problem: Counseled to stop smoking. PFTs as out patient. Subjective Date of service: 03/04/22 Principal diagnosis: Elevated Tn Interval history: 47-year-old male with no significant past medical history brought into the em ergency room today via EMS for changes in mental status. Patient was said to have been found by family at home unresponsive. EMS was therefore called. Blood glucose was found to be 25, patient was admitted D50 and Narcan 4 mg. Patient became more arousable and combative. According to family, patient has known history of drug abuse. Upon arrival in the emergency room, patient was found to be febrile back with and had to be restrained. Patient later became hypoxic and placed on nonrebreather and subsequently had to be intubated. Work-up in the emergency room , labs reveals a D-dimer 649, creatinine of 1.7, troponin of 0.055, UDS was positive for cocaine. Chest x-ray was unremarkable. Head CT scan also unremarkable. VQ scan was low probability for pulmonary embolism. Patient has history of smoking 3 cigaretts a day x 20 years. Counseled to stop smoking. Drinks alcohol now and then. Patient has history of cocaine abuse. Worked with [employer] before. Not working now. Not . Has one daughter. No known drug allergies. Patient extubated and transfered to medical floor. Patient awake. On room air. O2 saturation 97%. Sitting up in chair. No acute respiratory distress. Patient afebrile. No leukocytosis. Blood pressure 124/84, pulse 66, respirations 18. Patient has myocardial perfusion scan to day 03/04/22 reported mildly reduced left ventricular systolic function. Reported no ischemia. Patient is on S/C Heparin, famotidine, aspirine and Levaquin. Objective Vital Signs - 12hr 03/03/22 03/03/22 03/03/22 20:53 21:35 23:13 Temperature 98.4 F Pulse Rate 69 Respiratory 18 Rate Blood Pressure 135/87 O2 Sat by Pulse 98 98 98 Oximetry 03/04/22 05:45 Temperature 98.4 F Pulse Rate 66 Respiratory 18 Rate Blood Pressure 124/84 O2 Sat by Pulse 97 Oximetry Constitutional: no acute distress, alert Eyes: non-icteric ENT: oropharynx moist, other (extubated) Neck: supple, no lymphadenopathy, no JVD Effort: normal Ascultation: Bilateral: other (Slightly prolonged expiratory phase.) Percussion: Bilateral: not dull Cardiovascular: regular rate and rhythm Gastrointestinal: normoactive bowel sounds, soft, non-tender, non-distended Integumentary: other (midline sternal / abdominal post surgical scar) Extremities: no cyanosis, no edema, pulses normal, no ischemia or petechiae Neurologic: normal mental status, non-focal exam, pupils equal and round, motor strength normal and Psychiatric: mood appropriate, affect normal CBC and BMP: 03/05/22 06:34 03/05/22 06:34 ABG, PT/INR, D-dimer: ABG ABG pH 7.406 pH Units (7.350-7.450) 03/02/22 10:48 ABG pCO2 41.3 mm Hg 03/02/22 10:48 ABG pO2 124.7 mm Hg (80.0-90.0) H 03/02/22 10:48 ABG O2 Saturation 98.4 % (95.0-99.0) 03/02/22 10:48 PT/INR, D-dimer PT 13.0 Sec. (12.2-14.9) 02/28/22 19:20 INR 0.89 (0.87-1.13) 02/28/22 19:20 D-Dimer 649.01 ng/mlDDU (0-234) H 02/28/22 Unknown Abnormal lab findings: Abnormal Labs 02/28/22 02/28/22 02/28/22 19:20 19:20 19:20 WBC MCV 105 H MCH 35 H RDW 16.9 H Plt Count 466 H Lymph % (Auto) 9.2 L Lymph # (Auto) 0.9 L Seg Neutrophils % 83.4 H Seg Neutrophils # 8.6 H D-Dimer ABG pH ABG pO2 ABG HCO3 ABG O2 Saturation ABG Base Excess Oxyhemoglobin Sodium 135 L Chloride 93.6 L Carbon Dioxide 16 L BUN Creatinine 1.7 H Glucose 132 H POC Glucose Uric Acid AST 295 H Alkaline Phosphatase 189 H Total Creatine Kinase CK-MB (CK-2) Troponin T 0.055 H C-Reactive Protein Albumin HDL Cholesterol 70 H Urine WBC (Auto) Urine Creatinine Salicylates < 0.3 L Acetaminophen 02/28/22 02/28/22 02/28/22 19:20 20:00 22:00 WBC MCV MCH RDW Plt Count Lymph % (Auto) Lymph # (Auto) Seg Neutrophils % Seg Neutrophils # D-Dimer ABG pH 7.170 L* ABG pO2 392.6 H ABG HCO3 ABG O2 Saturation 99.5 H ABG Base Excess -7.6 L Oxyhemoglobin Sodium Chloride Carbon Dioxide BUN Creatinine Glucose POC Glucose Uric Acid AST Alkaline Phosphatase Total Creatine Kinase 395 H CK-MB (CK-2) 10.3 H Troponin T C-Reactive Protein Albumin HDL Cholesterol Urine WBC (Auto) Urine Creatinine Salicylates Acetaminophen 5.0 L 02/28/22 02/28/22 03/01/22 23:40 Unknown 08:18 WBC MCV MCH RDW Plt Count Lymph % (Auto) Lymph # (Auto) Seg Neutrophils % Seg Neutrophils # D-Dimer 649.01 H ABG pH 7.255 L 7.331 L ABG pO2 119.5 H 79.7 L ABG HCO3 18.5 L 19.3 L ABG O2 Saturation ABG Base Excess -8.3 L -6.0 L Oxyhemoglobin 94.7 L 94.0 L Sodium Chloride Carbon Dioxide BUN Creatinine Glucose POC Glucose Uric Acid AST Alkaline Phosphatase Total Creatine Kinase CK-MB (CK-2) Troponin T C-Reactive Protein Albumin HDL Cholesterol Urine WBC (Auto) Urine Creatinine Salicylates Acetaminophen 03/01/22 03/01/22 03/01/22 08:57 09:42 09:42 WBC MCV MCH RDW Plt Count Lymph % (Auto) Lymph # (Auto) Seg Neutrophils % Seg Neutrophils # D-Dimer ABG pH ABG pO2 ABG HCO3 ABG O2 Saturation ABG Base Excess Oxyhemoglobin Sodium 134 L Chloride Carbon Dioxide 19 L BUN 25 H Creatinine 1.8 H Glucose POC Glucose 67 L Uric Acid 10.5 H AST Alkaline Phosphatase Total Creatine Kinase 979 H CK-MB (CK-2) 14.2 H Troponin T 0.055 H C-Reactive Protein Albumin HDL Cholesterol Urine WBC (Auto) Urine Creatinine Salicylates Acetaminophen 03/01/22 03/01/22 03/01/22 11:17 11:17 12:04 WBC MCV MCH RDW Plt Count Lymph % (Auto) Lymph # (Auto) Seg Neutrophils % Seg Neutrophils # D-Dimer ABG pH ABG pO2 ABG HCO3 ABG O2 Saturation ABG Base Excess Oxyhemoglobin Sodium Chloride Carbon Dioxide BUN Creatinine Glucose POC Glucose Uric Acid AST Alkaline Phosphatase Total Creatine Kinase CK-MB (CK-2) Troponin T C-Reactive Protein 8.20 H Albumin HDL Cholesterol Urine WBC (Auto) 21.0 H Urine Creatinine 114.3 H Salicylates Acetaminophen 03/01/22 03/01/22 03/02/22 13:20 23:20 03:43 WBC MCV MCH RDW Plt Count Lymph % (Auto) Lymph # (Auto) Seg Neutrophils % Seg Neutrophils # D-Dimer ABG pH 7.226 L ABG pO2 ABG HCO3 ABG O2 Saturation 94.8 L ABG Base Excess -5.4 L Oxyhemoglobin 92.9 L Sodium Chloride Carbon Dioxide BUN Creatinine Glucose POC Glucose 140 H 133 H Uric Acid AST Alkaline Phosphatase Total Creatine Kinase CK-MB (CK-2) Troponin T C-Reactive Protein Albumin HDL Cholesterol Urine WBC (Auto) Urine Creatinine Salicylates Acetaminophen 03/02/22 03/02/22 03/02/22 04:06 04:06 07:57 WBC 11.6 H MCV 103 H MCH 35 H RDW 16.6 H Plt Count Lymph % (Auto) 10.4 L Lymph # (Auto) Seg Neutrophils % 82.6 H Seg Neutrophils # 9.6 H D-Dimer ABG pH ABG pO2 ABG HCO3 ABG O2 Saturation ABG Base Excess Oxyhemoglobin Sodium Chloride Carbon Dioxide BUN Creatinine Glucose 122 H POC Glucose 148 H Uric Acid AST 74 H Alkaline Phosphatase 147 H Total Creatine Kinase CK-MB (CK-2) Troponin T C-Reactive Protein Albumin 3.3 L HDL Cholesterol Urine WBC (Auto) Urine Creatinine Salicylates Acetaminophen 03/02/22 03/02/22 03/02/22 10:48 12:07 16:14 WBC MCV MCH RDW Plt Count Lymph % (Auto) Lymph # (Auto) Seg Neutrophils % Seg Neutrophils # D-Dimer ABG pH ABG pO2 124.7 H ABG HCO3 ABG O2 Saturation ABG Base Excess Oxyhemoglobin Sodium Chloride Carbon Dioxide BUN Creatinine Glucose POC Glucose 135 H 120 H Uric Acid AST Alkaline Phosphatase Total Creatine Kinase CK-MB (CK-2) Troponin T C-Reactive Protein Albumin HDL Cholesterol Urine WBC (Auto) Urine Creatinine Salicylates Acetaminophen 03/02/22 03/02/22 03/03/22 19:52 23:21 04:03 WBC MCV 103 H MCH 35 H RDW 16.1 H Plt Count Lymph % (Auto) Lymph # (Auto) Seg Neutrophils % Seg Neutrophils # D-Dimer ABG pH ABG pO2 ABG HCO3 ABG O2 Saturation ABG Base Excess Oxyhemoglobin Sodium Chloride Carbon Dioxide BUN Creatinine Glucose POC Glucose 115 H 112 H Uric Acid AST Alkaline Phosphatase Total Creatine Kinase CK-MB (CK-2) Troponin T C-Reactive Protein Albumin HDL Cholesterol Urine WBC (Auto) Urine Creatinine Salicylates Acetaminophen 03/03/22 03/03/22 03/03/22 04:03 04:05 07:31 WBC MCV MCH RDW Plt Count Lymph % (Auto) Lymph # (Auto) Seg Neutrophils % Seg Neutrophils # D-Dimer ABG pH ABG pO2 ABG HCO3 ABG O2 Saturation ABG Base Excess Oxyhemoglobin Sodium Chloride Carbon Dioxide BUN Creatinine Glucose 107 H POC Glucose 113 H 124 H Uric Acid AST Alkaline Phosphatase Total Creatine Kinase CK-MB (CK-2) Troponin T C-Reactive Protein Albumin HDL Cholesterol Urine WBC (Auto) Urine Creatinine Salicylates Acetaminophen 03/03/22 03/04/22 11:06 08:02 WBC MCV MCH RDW Plt Count Lymph % (Auto) Lymph # (Auto) Seg Neutrophils % Seg Neutrophils # D-Dimer ABG pH ABG pO2 ABG HCO3 ABG O2 Saturation ABG Base Excess Oxyhemoglobin Sodium Chloride Carbon Dioxide BUN Creatinine Glucose POC Glucose 124 H 115 H Uric Acid AST Alkaline Phosphatase Total Creatine Kinase CK-MB (CK-2) Troponin T C-Reactive Protein Albumin HDL Cholesterol Urine WBC (Auto) Urine Creatinine Salicylates Acetaminophen Chest x-ray: report reviewed, image reviewed Additional Studies: CHEST 1 VIEW 03/01/2022 8:18 AM INDICATION / CLINICAL INFORMATION: Respiratory Failure-Intubated. COMPARISON: 02/28/2022 FINDINGS: SUPPORT DEVICES: Stable, satisfactory device positioning. HEART / MEDIASTINUM: Stable. LUNGS / PLEURA: No significant pulmonary or pleural abnormality. No pneumothorax. ADDITIONAL FINDINGS: No significant additional findings. IMPRESSION: 1. No acute findings. Allied health notes reviewed: nursing
[2022-03-04] MEDS ORDERED: REGADENOSON 0.4 MG/5 ML INJ IV ONE (08:24)
--- NOTE | 2022-03-04 10:56 | Progress Note ---
Assessment and Plan Assessment and plan: This is a 47-year-old male with history of drug abuse and possible open heart surgery 25 years admitted for AMS and acute hypoxic respiratory failure requiring ventilatory support Acute Hypoxic Respiratory Failure - most likely due to drug abuse, found unresponsive at home, UDS +cocaine - Patient was hypoxic in the ED, SPO2 in the 80s on NRB - Intubated in the ED on 03/01 - 03/03 extubated, now stable on RA - CCM consulted, appreciate recommendations - Aspiration precaution HOB above 30 - PRN O2 supplementation - Continue SPO2 monitoring for SPO2 goal above 92% Acute Toxic metabolic encephalopathy-resolved Cocaine Abuse - Found unresponsive at home by family - Per EMS BG was in the 20s in the field s/p D50w - Continue Hypoglycemic protocol - UDS +cocaine - CT Brain/brain with no acute intracranial abnormality. - Wile awake, following commands this am - Avoid benzodiazepine to reduce the possibility of delirium - PRN analgesia for CPOT greater than 3 - Maintenance of sleep-wake cycle - Substance abuse cessation education provided and detox resources offered. - Patient verbalized understanding of info provided and stated "he is done with drugs" and refused resources at this time NSTEMI - Presented with elevated troponin - EKG reviewed with ST, HR in the 100s, no significant ST changes - Cardiology following, appreciated recommendations - Continue Heparin SubQ for VTE proh - Continue blood pressure monitor per protocol - Maintain MAP above 65 Acute Kidney Injury(TABATHA) -Etiology secondary to vasomotor nephropathy/prerenal - Nephrology consulted, appreciated recommendations - Strict intake and output - Avoid nephrotoxic medications; Renally dose medications - Monitor and replace electrolytes as needed Hyponatremia-improved Fevers-resolved - Probably due to substances abuse, however infectious process can't be excluded - Afebrile this am, WBCs and lactic wnr - UA with elevated WBCs, neg nitrates and small leukocytes - Cultures and Procal noted - Continue empiric IV abx for now - Continue to F/U cultures - Daily CBC monitor - Consider D/C IV antibiotics if cultures are negative Hypoglycemia-resolved - Per EMS BG was in the 20s in the field s/p D50w - Continue Hypoglycemic protocol - BG check ACHS - Avoid hypoglycemia Elevated D-Dimer - VQ scan was low probability for pulmonary embolism - BLE doppler negative DVT - Heparin subQ for VTE proph GI/DVT Prophylaxis - PPI- Pepcid - Heparin subQ - SCDs to bilateral lower extremities while in bed Hospital Course to Date: 03/01: Patient seen and examined at the bedside. Intubated, off sedation this am. Remains lethargic but arousable, following simple commands. Keep sedation off for now, plan for possible PSV trial when more awake. Patient hypoglycemic this am, IVF switched to D5NS, BG check Q4hrs. Elevated TroponinX2, Cardiology consulted for NSTEMI, continue to trend cardiac enzymes. Nephrology is also following for TABATHA, continue IVF rehydration for now. 03/02: Remains intubated, off sedation, following commands and appropriate. Patient is tolerating PSV trial this am, possible extubation today. Empiric IV abx was initiated yesterday due to high fevers. Fever improved this am and patient remains hemodynamically stable. Continue IV Abx for now, blood cultures and procal pending. Renal function improved this am, 2D echo pending. Continue to monitor renal function and electrolytes, replete as needed. Nephrology is also following. 03/03: s/p extubation now stable on RA. C/o of generalized weakness, otherwise in no acute distress. PT/OT eval and treat ordered. Renal function normalized, monitor and replete electrolytes as needed. Remains on IV abx X5days, procal noted, blood cultures still pending. Patient remains afebrile and hemodynamically stable. Consider D/C IV antibiotics if cultures are negative. Patient is stable for transfer to the floor. 03/04: Echocardiogram reveals left ventricular size normal with systolic function mildly decreased moderate hypokinesis with paradoxical septal motion wall abnormalities consistent with conduction abnormality. Left ventricular diastolic function is normal. LVEF 40-45%. Right ventricle also hypokinetic. Continue baby aspirin and statin. Avoid beta-blockers due to cocaine use. Cardiology to consider DEBI/ARB if renal function remains stable. Await Lexiscan results this morning. Blood culture still pending. If blood cultures remain negative x48 hours will likely discontinue empiric antibiotics. Anticipate discharge next 24-48 hours. PT/OT evaluation. History Interval history: No new issues overnight. Hospitalist Physical - Constitutional Vitals: Temp Pulse Resp BP Pulse Ox 98.4 F 66 20 124/84 97 03/04/22 05:45 03/04/22 05:45 03/04/22 08:15 03/04/22 05:45 03/04/22 08:15 General appearance: Present: no acute distress, cachectic - EENT Eyes: Present: PERRL, EOM intact ENT: hearing intact, clear oral mucosa, dentition normal - Neck Neck: Present: supple, normal ROM - Respiratory Respiratory effort: normal Respiratory: bilateral: CTA - Cardiovascular Rhythm: regular Heart Sounds: Present: S1 & S2. Absent: gallop, rub - Extremities Extremities: no ischemia, No edema, Full ROM - Abdominal General gastrointestinal: soft, non-tender, non-distended, normal bowel sounds - Integumentary Integumentary: Present: clear, warm, dry - Neurologic Neurologic: CNII-XII intact, moves all extremities HEART Score - HEART Score Troponin: Troponin T 0.055 ng/mL (0.00-0.029) H 03/01/22 09:42 Results - Labs CBC & Chem 7: 03/03/22 04:03 03/03/22 04:03 Labs: Laboratory Last Values WBC 9.2 K/mm3 (4.5-11.0) 03/03/22 04:03 RBC 4.08 M/mm3 (3.65-5.03) 03/03/22 04:03 Hgb 14.2 gm/dl (11.8-15.2) 03/03/22 04:03 Hct 42.0 % (35.5-45.6) 03/03/22 04:03 MCV 103 fl (84-94) H 03/03/22 04:03 MCH 35 pg (28-32) H 03/03/22 04:03 MCHC 34 % (32-34) 03/03/22 04:03 RDW 16.1 % (13.2-15.2) H 03/03/22 04:03 Plt Count 408 K/mm3 (140-440) 03/03/22 04:03 Lymph % (Auto) 10.4 % (13.4-35.0) L 03/02/22 04:06 [place] % (Auto) 6.6 % (0.0-7.3) 03/02/22 04:06 Eos % (Auto) 0.2 % (0.0-4.3) 03/02/22 04:06 Baso % (Auto) 0.2 % (0.0-1.8) 03/02/22 04:06 Lymph # (Auto) 1.2 K/mm3 (1.2-5.4) 03/02/22 04:06 [place] # (Auto) 0.8 K/mm3 (0.0-0.8) 03/02/22 04:06 Eos # (Auto) 0.0 K/mm3 (0.0-0.4) 03/02/22 04:06 Baso # (Auto) 0.0 K/mm3 (0.0-0.1) 03/02/22 04:06 Seg Neutrophils % 82.6 % (40.0-70.0) H 03/02/22 04:06 Seg Neutrophils # 9.6 K/mm3 (1.8-7.7) H 03/02/22 04:06 PT 13.0 Sec. (12.2-14.9) 02/28/22 19:20 INR 0.89 (0.87-1.13) 02/28/22 19:20 D-Dimer 649.01 ng/mlDDU (0-234) H 02/28/22 Unknown ABG pH 7.406 pH Units (7.350-7.450) 03/02/22 10:48 ABG pCO2 41.3 mm Hg 03/02/22 10:48 ABG pO2 124.7 mm Hg (80.0-90.0) H 03/02/22 10:48 ABG HCO3 25.4 mmol/L (20.0-26.0) 03/02/22 10:48 ABG O2 Saturation 98.4 % (95.0-99.0) 03/02/22 10:48 ABG O2 Content 19.3 (0.0-44) 03/02/22 10:48 ABG Base Excess 0.6 mmol/L (-2.0-3.0) 03/02/22 10:48 ABG Hemoglobin 14.0 gm/dl (14.0-18.0) 03/02/22 10:48 ABG Carboxyhemoglobin 1.1 % (0.0-5.0) 03/02/22 10:48 ABG Methemoglobin 0.5 % (0.0-1.5) 03/02/22 10:48 Oxyhemoglobin 96.8 % (95.0-99.0) 03/02/22 10:48 FiO2 40 % 03/02/22 10:48 Sodium 137 mmol/L (137-145) 03/02/22 04:06 Potassium 4.9 mmol/L (3.6-5.0) 03/02/22 04:06 Chloride 100.6 mmol/L (98-107) 03/02/22 04:06 Carbon Dioxide 28 mmol/L (22-30) 03/03/22 04:03 Anion Gap 16 mmol/L 03/02/22 04:06 BUN 10 mg/dL (9-20) 03/03/22 04:03 Creatinine 1.0 mg/dL (0.8-1.3) 03/03/22 04:03 Estimated GFR > 60 ml/min 03/03/22 04:03 BUN/Creatinine Ratio 10 % 03/03/22 04:03 Glucose 107 mg/dL (75-100) H 03/03/22 04:03 POC Glucose 115 mg/dL (70-105) H 03/04/22 08:02 Osmolality 295 Mosm/kg 03/01/22 12:04 Lactic Acid 0.80 mmol/L (0.7-2.0) 03/01/22 12:04 Uric Acid 10.5 mg/dL (3.5-7.6) H 03/01/22 09:42 Calcium 9.6 mg/dL (8.4-10.2) 03/03/22 04:03 Magnesium 2.10 mg/dL (1.7-2.3) 03/02/22 11:37 Total Bilirubin 0.70 mg/dL (0.1-1.2) 03/02/22 04:06 AST 74 units/L (5-40) H 03/02/22 04:06 ALT 44 units/L (7-56) 03/02/22 04:06 Alkaline Phosphatase 147 units/L (35-129) H 03/02/22 04:06 Total Creatine Kinase 979 units/L (55-170) H 03/01/22 09:42 CK-MB (CK-2) 14.2 ng/mL (0.0-4.0) H 03/01/22 09:42 CK-MB (CK-2) Rel Index 1.4 (0-4) 03/01/22 09:42 Troponin T 0.055 ng/mL (0.00-0.029) H 03/01/22 09:42 C-Reactive Protein 8.20 mg/dL (0.00-1.30) H 03/01/22 12:04 Total Protein 6.6 g/dL (6.3-8.2) 03/02/22 04:06 Albumin 3.3 g/dL (3.9-5) L 03/02/22 04:06 Albumin/Globulin Ratio 1.0 % 03/02/22 04:06 Triglycerides 141 mg/dL (2-149) 02/28/22 19:20 Cholesterol 170 mg/dL (50-199) 02/28/22 19:20 LDL Cholesterol Direct 89 mg/dL (50-130) 02/28/22 19:20 HDL Cholesterol 70 mg/dL (40-59) H 02/28/22 19:20 Cholesterol/HDL Ratio 2.42 % 02/28/22 19:20 Procalcitonin 6.44 ng/mL (<0.15) 03/01/22 12:04 TSH 1.100 mlU/mL (0.270-4.200) 02/28/22 19:20 Free T4 1.06 ng/dL (0.76-1.46) 02/28/22 19:20 Urine Color Yellow (Yellow) 03/01/22 11:17 Urine Turbidity Clear (Clear) 03/01/22 11:17 Urine pH 5.0 (5.0-7.0) 03/01/22 11:17 Ur Specific [place] 1.015 (1.003-1.030) 03/01/22 11:17 Urine Protein 30 mg/dl mg/dL (Negative) 03/01/22 11:17 Urine Glucose (UA) Neg mg/dL (Negative) 03/01/22 11:17 Urine Ketones 20 mg/dL (Negative) 03/01/22 11:17 Urine Blood Mod (Negative) 03/01/22 11:17 Urine Nitrite Neg (Negative) 03/01/22 11:17 Urine Bilirubin Neg (Negative) 03/01/22 11:17 Urine Urobilinogen < 2.0 mg/dL (<2.0) 03/01/22 11:17 Ur Leukocyte Esterase Sm (Negative) 03/01/22 11:17 Urine WBC (Auto) 21.0 /HPF (0.0-6.0) H 03/01/22 11:17 Urine RBC (Auto) 25.0 /HPF (0.0-6.0) 03/01/22 11:17 U Epithel Cells (Auto) 8.0 /HPF (0-13.0) 03/01/22 11:17 Urine Bacteria (Auto) 1+ /HPF (Negative) 03/01/22 11:17 Hyaline Casts 18 /LPF 03/01/22 11:17 Urine Mucus Few /HPF 03/01/22 11:17 Urine Osmolality 551 Mosm/kg 03/01/22 11:17 Urine Creatinine 114.3 mg/dL (0.1-20.0) H 03/01/22 11:17 Urine Sodium 51 mmol/L 03/01/22 11:17 Salicylates < 0.3 mg/dL (2.8-20.0) L 02/28/22 19:20 Urine Opiates Screen Presumptive negative 02/28/22 Unknown Urine Methadone Screen Presumptive negative 02/28/22 Unknown Acetaminophen 5.0 ug/mL (10.0-30.0) L 02/28/22 19:20 Ur Barbiturates Screen Presumptive negative 02/28/22 Unknown Ur Phencyclidine Scrn Presumptive negative 02/28/22 Unknown Ur Amphetamines Screen Presumptive negative 02/28/22 Unknown U Benzodiazepines Scrn Presumptive negative 02/28/22 Unknown Urine Cocaine Screen Presumptive positive 02/28/22 Unknown U Marijuana (THC) Screen Presumptive negative 02/28/22 Unknown Drugs of Abuse Note Disclamer 02/28/22 Unknown Plasma/Serum Alcohol < 0.01 % (0-0.07) 02/28/22 19:20 Hepatitis A IgM Ab Non-reactive (NonReactive) 03/01/22 12:04 Hep Bs Antigen Non-reactive (Negative) 03/01/22 12:04 Hep B Core IgM Ab Non-reactive (NonReactive) 03/01/22 12:04 Hepatitis C Antibody Non-reactive (NonReactive) 03/01/22 12:04 Microbiology: Microbiology 03/02/22 14:00 Peripheral/Venous Blood Culture - Preliminary NO GROWTH AFTER 24 HOURS 03/02/22 14:00 Peripheral/Venous Blood Culture - Preliminary NO GROWTH AFTER 24 HOURS 02/28/22 22:07 Tracheal Aspirate Sputum Culture - Final 03/01/22 12:24 Urine,Catheterized - Indwelling Catheter Urine Culture - Final NO GROWTH AFTER 48 HOURS Abrams/IV: Voiding Method Toilet Active Medications - Current Medications Current Medications: Generic Name Dose Route Start Last Admin Trade Name Freq PRN Reason Stop Dose Admin Acetaminophen 650 mg 03/01/22 00:07 03/01/22 11:50 Acetaminophen 650 Mg Rect Supp NM 650 mg Q6H PRN Administration Pain MILD(1-3)/Fever >100.5/RAINEY Aspirin 81 mg 03/02/22 10:00 03/03/22 09:32 Aspirin 81 Mg Tab Chew FEEDTUBE 81 mg QDAY MARTINEZ Administration Atorvastatin Calcium 40 mg 03/01/22 22:00 03/03/22 22:15 Atorvastatin 40 Mg Tab FEEDTUBE 40 mg QHS MARTINEZ Administration Dextrose 50 ml 03/01/22 09:03 03/01/22 09:18 Dextrose 50% In Water (25gm) 50 Ml Syringe IV 15 ml Q30MIN PRN Administration Hypoglycemia Protocol Famotidine 10 mg 03/03/22 10:00 03/03/22 22:15 Famotidine 10 Mg Tab PO 10 mg BID MARTINEZ Administration Heparin Sodium (Porcine) 5,000 unit 03/01/22 14:00 03/04/22 06:23 Heparin 5,000 Unit/1 Ml Vial SUB-Q 5,000 unit Q8HR MARTINEZ Administration Levofloxacin/Dextrose 500 mg in 100 mls @ 100 mls/hr 03/01/22 13:00 03/03/22 12:38 Levaquin 500mg/100ml IV 03/05/22 13:59 100 mls/hr Q24H MARTINEZ Administration Protocol Magnesium Hydroxide 30 ml 03/01/22 00:07 Magnesium Hydroxide (Mom) Oral Liqd Udc PO Q4H PRN Constipation Ondansetron HCl 4 mg 03/01/22 00:07 Ondansetron 4 Mg/2 Ml Inj IV Q8H PRN Nausea And Vomiting Senna/Docusate Sodium 1 tab 03/03/22 22:00 03/03/22 22:15 Sennosides/Docusate Sodium 8.6/50 Mg Tab PO 1 tab QHS MARTINEZ Administration Sodium Chloride 10 ml 03/01/22 10:00 03/03/22 22:16 Sodium Chloride 0.9% 10 Ml Flush Syringe IV 10 ml BID MARTINEZ Administration Sodium Chloride 10 ml 03/01/22 00:07 Sodium Chloride 0.9% 10 Ml Flush Syringe IV PRN PRN LINE FLUSH Nutrition/Malnutrition Assess - Dietary Evaluation Nutrition/Malnutrition Findings: Nutrition Notes Start: 03/01/22 09:18 Freq: Status: Active Protocol: Document 03/01/22 09:18 LEORA (Rec: 03/01/22 09:30 LEORA [id number]) Nutrition Notes Need for Assessment generated from: MD Order,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 Pt also screened for malnutrition and skin risks (Luis score: 14) and low BMI. Pt intubated and not appropriate for diet education at this time. Pt appears to be wt documented at admission; temples slightly depressed and observed fat loss. Burn Absent Trauma Absent Minimum of two criteria Yes Body Fat Depletion Moderate depletion (severe) Muscle Mass Moderate Depletion (severe) #1 Nutrition Diagnosis Inadequate oral intake Etiology [facility] ventilation As Evidenced by Signs and Symptoms pt NPO Is patient on ventilator? Yes Is Patient Ambulatory and/or Out of Bed No REE-([facility]-confined to bed) 1593.120 Kcal/Kg value to use for calculation 45 Approximate Energy Requirements Using 2043 kcal/Kg Calculation Used for Recommendations Kcal/kg Additional Notes Pro needs 1.2-2g/k-91g/ day Fluid needs 1ml/kcal Nutrition Intervention Nutrition Support: Osmolite 1.5 at 55ml/hr with 150ml water flush q4h. Kcal 1,980 Protein (gm) 83 Carbohydrates (gm) 269 Fat (gm) 65 Fluid (mL) 1,006 Fiber (gm) 0 Goal #1 TF tolerance Goal #2 TF to meet 100% energy and pro needs Goal #3 Wt maintenance and/or gain Anticipated Discharge Needs: Consider an ONS 2-3 times daily for wt maintenance if diet advanced Follow-Up By: 03/04/22 Additional Comments F/U: new TF, vent status, Propofol, renal function
[2022-03-04] MEDS: ASPIRIN 81 MG TAB CHEW FEEDTUBE SCH (12:26)
[2022-03-04] MEDS: FAMOTIDINE 10 MG TAB PO SCH ×2 (12:26→21:37)
[2022-03-04] MEDS: levoFLOXacin 500 MG TAB PO SCH (12:28)
[2022-03-04] MEDS ORDERED: ACETAMINOPHEN 325 MG TAB PO PRN (12:41)
--- NOTE | 2022-03-04 12:51 | Nuclear Medicine Report ---
APPROVED REPORT Exam: Nuclear Stress Test Indication: Chest pain Patient Location: [address] [place] [address] Room #: A369 Ht: 5 ft 9 in Wt: 145 lbs BSA: 1.80 m2 HR: 54 bpmBP: 126/87 mmHgBMI: 21.41 Rhythm: Sinus Bradycardia Stress Test Details Stress Test: Exercise stress testing was performed using a Bonifacio protocol. HR Resting HR: 56 bpm Max HR Achieved: 135 bpm Max Heart Rate (APMHR): 173 bpm Target HR (85% APMHR): 147 bpm % of APMHR: 78 Recovery HR: 64 bpm HR response to stress: Normal HR response to stress BP Resting BP: 126/87 mmHg Max BP: 132/93 mmHg Recovery BP: 120/86 mmHg BP response to stress: Normal blood pressure response to stress. ECG Resting ECG: Sinus Bradycardia,T inversions in anterior leads noted at 78% of PMHR. Stress ECG: Sinus Tachycardia ST Change: None Arrhythmia: None Recovery ECG: Sinus Rhythm Recovery ST Change: None Recovery Arrhythmia: None Clinical Reason for Termination: Fatigue Stress Symptoms: SOB Exercise duration: 8 min 06 sec Exercise capacity: 9.3 METs Overall Exercise Capacity for Age: Poor no ST changes noted at peak heart rate,78% predicted maximal heart rate. Stress ECG Conclusion ECG: Non-ischemic NM EXAM: Myocardial Perfusion REST/STRESS Resting Data Rest SPECT myocardial perfusion imaging was performed in supine position 45 minutes following the intravenous injection of 10 mCi of Tc-99m Myoview. Time of rest injection: 714 Date: 03/04/2022 Exercise Stress At peak stress, the patient was injected intravenously with 28mCi of Tc-99m Myoview. Time of stress injection: 10:15 Date: 03/04/2022 Gated Stress SPECT was performed 30 minutes after stress injection. The images were gated to evaluate regional wall motion and calculate left ventricular ejection fraction. Study Data TID = 1.04. Perfusion Wall Motion Calculated LV EF post vasdilation is 42 % with no regional wall motion abnormalities noted. Mildly decreased left ventricular systolic function. Nuclear Conclusion ECG Findings: negative for ischemia Clinical Findings: negative for ischemia Nuclear Findings: negative for ischemia Exercise Capacity: normal,fair. Left Ventricular Function: abnormal Risk Study: low Calculated LV EF post vasdilation is 42 % with no regional wall motion abnormalities noted. Mildy decreased left ventricular systolic function. No ischemia noted. Conclusion ECG: Non-ischemic
[2022-03-04] MEDS ORDERED: ACETAMINOPHEN 650 MG RECT SUPP PR PRN (13:19)
[2022-03-04 14:09] LABS: BUN/Creatinine Ratio 11; Blood Urea Nitrogen 10 mg/dL (9-20); Calcium 10.3 mg/dL (8.4-10.2); Hemolysis Index 4
--- NOTE | 2022-03-04 15:00 | Progress Note ---
Assessment and Plan Patient is a 47-year-old male with an unknown past medical history who was brought to the ED after being found unresponsive at home. AMS Acute respiratory failure-pulmonology following Hypoglycemia TABATHA-nephrology following minimally elevated troponin Cocaine abuse Cardiomyopathy Echo -LV EF 40-45%, normal LV diastolic function, moderate hypokinesis of septum, paradoxical septal motion consistent with conduction abnormality, RV moderately hypokinetic. Continue bASA and statin. Avoid beta blockers due to cocaine use. Lexiscan MPI stress test 03/04/2022-negative for ischemia. Mildly decreased LV systolic function EF 42% Plan: EKG shows sinus tachycardia rate 100. No acute ischemic changes Troponin noted to be minimally elevated and stable at 0.055 x2. Suspect troponin leak due to hypoglycemia, TABATHA, and cocaine abuse Continue aspirin and Lipitor No metoprolol due to cocaine use No DEBI or ARB due to renal function Cardiac status otherwise stable Patient should follow-up with Dr. Eugene, [facility] integrated specialist, 1 to 2 weeks after discharge. Phone #[phone] Patient seen in conjunction with Dr. Casey agrees with this plan of care - Patient Problems (1) Altered mental status Current Visit: Yes Status: Acute (2) Respiratory failure Current Visit: Yes Status: Acute (3) Hypoxia Current Visit: Yes Status: Acute (4) Cocaine abuse Current Visit: Yes Status: Acute (5) TABATHA (acute kidney injury) Current Visit: Yes Status: Acute Subjective Date of service: 03/04/22 Principal diagnosis: Elevated Tn Interval history: Patient for stress test this a.m. Not on monitor Objective Vital Signs Temp Pulse Resp BP Pulse Ox 03/04/22 10:22 128/93 03/04/22 10:21 132/93 03/04/22 10:19 132/92 03/04/22 10:18 130/92 03/04/22 10:00 96 03/04/22 09:05 126/87 03/04/22 08:15 20 97 03/04/22 05:45 98.4 F 66 18 124/84 97 03/03/22 23:13 98.4 F 69 18 135/87 98 03/03/22 21:35 98 03/03/22 20:53 98 03/03/22 15:57 98.3 F 57 L 16 121/84 98 - Physical Examination General: No Apparent Distress HEENT: Positive: EOMI, Normocephaly Neck: Positive: neck supple, trachea midline. Negative: JVD/HJR Cardiac: Positive: Reg Rate and Rhythm Lungs: Positive: Normal Breath Sounds Neuro: Positive: Grossly Intact Abdomen: Positive: Soft. Negative: Tender Skin: Negative: Rash Musculoskeletal: No Pain Extremities: Present: lower extr. pulses, warm. Absent: edema - Labs and Meds Comprehensive Metabolic Panel 03/04/22 Range/Units 12:53 Sodium 138 (137-145) mmol/L Potassium 4.7 (3.6-5.0) mmol/L Chloride 100.8 (98-107) mmol/L Carbon Dioxide 24 (22-30) mmol/L BUN 10 (9-20) mg/dL Creatinine 0.9 (0.8-1.3) mg/dL Glucose 103 H (75-100) mg/dL Calcium 10.3 H (8.4-10.2) mg/dL - Imaging and Cardiology EKG: report reviewed, image reviewed Echo: report reviewed - EKG Sinus rhythms and dysrhythmias: sinus tachycardia - Allied health notes Allied health notes reviewed: nursing
[2022-03-04] MEDS: SENNOSIDES/DOCUSATE SODIUM 8.6/50 MG TAB PO SCH (21:37)
[2022-03-05] MEDS: HEPARIN 5,000 UNIT/1 ML VIAL SUB-Q SCH ×2 (05:12→13:53)
[2022-03-05 07:34] LABS: Basophils % (Auto) 0.7 % (0.0-1.8); Eosinophils # (Auto) 0.3 K/mm3 (0.0-0.4); Eosinophils % (Auto) 5.1 % (0.0-4.3); Hematocrit 42.5 % (35.5-45.6); Hemoglobin 14.3 gm/dl (11.8-15.2); Lymphocytes # (Auto) 2.2 K/mm3 (1.2-5.4); Lymphocytes % (Auto) 36.2 % (13.4-35.0); Mean Corpuscular HGB Conc 34 % (32-34); Mean Corpuscular Volume 103 fl (84-94); Monocytes # (Auto) 0.6 K/mm3 (0.0-0.8); Platelet Count 532 K/mm3 (140-440); Red Blood Count 4.13 M/mm3 (3.65-5.03); Red Cell Distribution Width 15.6 % (13.2-15.2)
[2022-03-05 07:57] LABS: BUN/Creatinine Ratio 13; Blood Urea Nitrogen 12 mg/dL (9-20); Calcium 9.7 mg/dL (8.4-10.2); Hemolysis Index 3
[2022-03-05] MEDS: ASPIRIN 81 MG TAB CHEW FEEDTUBE SCH (09:37)
[2022-03-05] MEDS: FAMOTIDINE 10 MG TAB PO SCH (09:38)
[2022-03-05] MEDS: levoFLOXacin 500 MG TAB PO SCH (09:38)
--- NOTE | 2022-03-05 12:15 | Progress Note ---
Assessment and Plan Acute hypoxemic respiratory failure on MVS Cocaine abuse Acute encephalopathy Non-ST elevation myocardial infarction Cardiomyopathy (s/p stab and CTSU) Acute kidney injury (cardiorenal versus prerenal syndrome) Severe protein calorie malnutrition Possible urinary tract infection - discharge planning ok pulmonary-martin - continue care as below; - prn supplemental oxygen for target O2 sat's > 90% acutely - aspiration precautions - prn bronchodilators with pulmonary hygiene per RT - avoid nephrotoxins, renally dose all medications - continue accuchecks with glycemic control per SSI for target blood glucose < 180 mg/dL - AB's per ID rec's - prn analgesia per pain score - tobacco and cocaine abstinence strongly counseled at bedside - Maintenance of sleep-wake cycle, avoid delirium - G.I. & VTE prophylaxis - PT/OT/ROM exercises - continue mobility protocols for pressure ulcer prophylaxis - Monitor hemodynamics closely - continue other care per attending / other consultants .... Re-evaluate in am & prn Subjective Date of service: 03/05/22 Principal diagnosis: AHRF; Cocaine OD; AMS; NSTEMI; CMOP; TABATHA; Protein calorie malnutritition Interval history: Patient is seen today for: Acute hypoxemic respiratory failure; Cocaine abuse; AMS; NSTEMI; CMOP; TABATHA; Severe protein calorie malnutrition Seen and examined at bedside; 24hour events reviewed; nursing and respiratory care staff consulted; no adverse overnight events reported to me; resting peacefully in bed; continues to do well post extubation; denies chest pain, SOB or palpitations Objective Vital Signs - 12hr 03/05/22 04:41 Temperature 97.8 F Pulse Rate 84 Respiratory 16 Rate Blood Pressure 139/86 O2 Sat by Pulse 98 Oximetry Constitutional: no acute distress, alert Eyes: non-icteric ENT: oropharynx moist, other (extubated) Neck: supple, no lymphadenopathy, no JVD Effort: normal Ascultation: Bilateral: clear, other (Slightly prolonged expiratory phase.) Percussion: Bilateral: not dull Cardiovascular: regular rate and rhythm Gastrointestinal: normoactive bowel sounds, soft, non-tender, non-distended Integumentary: other (midline sternal / abdominal post surgical scar) Extremities: no cyanosis, no edema, pulses normal, no ischemia or petechiae Neurologic: normal mental status, non-focal exam, pupils equal and round, motor strength normal and Psychiatric: mood appropriate, affect normal CBC and BMP: 03/05/22 06:34 03/05/22 06:34 ABG, PT/INR, D-dimer: ABG ABG pH 7.406 pH Units (7.350-7.450) 03/02/22 10:48 ABG pCO2 41.3 mm Hg 03/02/22 10:48 ABG pO2 124.7 mm Hg (80.0-90.0) H 03/02/22 10:48 ABG O2 Saturation 98.4 % (95.0-99.0) 03/02/22 10:48 PT/INR, D-dimer PT 13.0 Sec. (12.2-14.9) 02/28/22 19:20 INR 0.89 (0.87-1.13) 02/28/22 19:20 D-Dimer 649.01 ng/mlDDU (0-234) H 02/28/22 Unknown Abnormal lab findings: Abnormal Labs 02/28/22 02/28/22 02/28/22 19:20 19:20 19:20 WBC MCV 105 H MCH 35 H RDW 16.9 H Plt Count 466 H Lymph % (Auto) 9.2 L [place] % (Auto) Eos % (Auto) Lymph # (Auto) 0.9 L Seg Neutrophils % 83.4 H Seg Neutrophils # 8.6 H D-Dimer ABG pH ABG pO2 ABG HCO3 ABG O2 Saturation ABG Base Excess Oxyhemoglobin Sodium 135 L Chloride 93.6 L Carbon Dioxide 16 L BUN Creatinine 1.7 H Glucose 132 H POC Glucose Uric Acid Calcium AST 295 H Alkaline Phosphatase 189 H Total Creatine Kinase CK-MB (CK-2) Troponin T 0.055 H C-Reactive Protein Albumin HDL Cholesterol 70 H Urine WBC (Auto) Urine Creatinine Salicylates < 0.3 L Acetaminophen 02/28/22 02/28/22 02/28/22 19:20 20:00 22:00 WBC MCV MCH RDW Plt Count Lymph % (Auto) [place] % (Auto) Eos % (Auto) Lymph # (Auto) Seg Neutrophils % Seg Neutrophils # D-Dimer ABG pH 7.170 L* ABG pO2 392.6 H ABG HCO3 ABG O2 Saturation 99.5 H ABG Base Excess -7.6 L Oxyhemoglobin Sodium Chloride Carbon Dioxide BUN Creatinine Glucose POC Glucose Uric Acid Calcium AST Alkaline Phosphatase Total Creatine Kinase 395 H CK-MB (CK-2) 10.3 H Troponin T C-Reactive Protein Albumin HDL Cholesterol Urine WBC (Auto) Urine Creatinine Salicylates Acetaminophen 5.0 L 02/28/22 02/28/22 03/01/22 23:40 Unknown 08:18 WBC MCV MCH RDW Plt Count Lymph % (Auto) [place] % (Auto) Eos % (Auto) Lymph # (Auto) Seg Neutrophils % Seg Neutrophils # D-Dimer 649.01 H ABG pH 7.255 L 7.331 L ABG pO2 119.5 H 79.7 L ABG HCO3 18.5 L 19.3 L ABG O2 Saturation ABG Base Excess -8.3 L -6.0 L Oxyhemoglobin 94.7 L 94.0 L Sodium Chloride Carbon Dioxide BUN Creatinine Glucose POC Glucose Uric Acid Calcium AST Alkaline Phosphatase Total Creatine Kinase CK-MB (CK-2) Troponin T C-Reactive Protein Albumin HDL Cholesterol Urine WBC (Auto) Urine Creatinine Salicylates Acetaminophen 03/01/22 03/01/22 03/01/22 08:57 09:42 09:42 WBC MCV MCH RDW Plt Count Lymph % (Auto) [place] % (Auto) Eos % (Auto) Lymph # (Auto) Seg Neutrophils % Seg Neutrophils # D-Dimer ABG pH ABG pO2 ABG HCO3 ABG O2 Saturation ABG Base Excess Oxyhemoglobin Sodium 134 L Chloride Carbon Dioxide 19 L BUN 25 H Creatinine 1.8 H Glucose POC Glucose 67 L Uric Acid 10.5 H Calcium AST Alkaline Phosphatase Total Creatine Kinase 979 H CK-MB (CK-2) 14.2 H Troponin T 0.055 H C-Reactive Protein Albumin HDL Cholesterol Urine WBC (Auto) Urine Creatinine Salicylates Acetaminophen 03/01/22 03/01/22 03/01/22 11:17 11:17 12:04 WBC MCV MCH RDW Plt Count Lymph % (Auto) [place] % (Auto) Eos % (Auto) Lymph # (Auto) Seg Neutrophils % Seg Neutrophils # D-Dimer ABG pH ABG pO2 ABG HCO3 ABG O2 Saturation ABG Base Excess Oxyhemoglobin Sodium Chloride Carbon Dioxide BUN Creatinine Glucose POC Glucose Uric Acid Calcium AST Alkaline Phosphatase Total Creatine Kinase CK-MB (CK-2) Troponin T C-Reactive Protein 8.20 H Albumin HDL Cholesterol Urine WBC (Auto) 21.0 H Urine Creatinine 114.3 H Salicylates Acetaminophen 03/01/22 03/01/22 03/02/22 13:20 23:20 03:43 WBC MCV MCH RDW Plt Count Lymph % (Auto) [place] % (Auto) Eos % (Auto) Lymph # (Auto) Seg Neutrophils % Seg Neutrophils # D-Dimer ABG pH 7.226 L ABG pO2 ABG HCO3 ABG O2 Saturation 94.8 L ABG Base Excess -5.4 L Oxyhemoglobin 92.9 L Sodium Chloride Carbon Dioxide BUN Creatinine Glucose POC Glucose 140 H 133 H Uric Acid Calcium AST Alkaline Phosphatase Total Creatine Kinase CK-MB (CK-2) Troponin T C-Reactive Protein Albumin HDL Cholesterol Urine WBC (Auto) Urine Creatinine Salicylates Acetaminophen 03/02/22 03/02/22 03/02/22 04:06 04:06 07:57 WBC 11.6 H MCV 103 H MCH 35 H RDW 16.6 H Plt Count Lymph % (Auto) 10.4 L [place] % (Auto) Eos % (Auto) Lymph # (Auto) Seg Neutrophils % 82.6 H Seg Neutrophils # 9.6 H D-Dimer ABG pH ABG pO2 ABG HCO3 ABG O2 Saturation ABG Base Excess Oxyhemoglobin Sodium Chloride Carbon Dioxide BUN Creatinine Glucose 122 H POC Glucose 148 H Uric Acid Calcium AST 74 H Alkaline Phosphatase 147 H Total Creatine Kinase CK-MB (CK-2) Troponin T C-Reactive Protein Albumin 3.3 L HDL Cholesterol Urine WBC (Auto) Urine Creatinine Salicylates Acetaminophen 03/02/22 03/02/22 03/02/22 10:48 12:07 16:14 WBC MCV MCH RDW Plt Count Lymph % (Auto) [place] % (Auto) Eos % (Auto) Lymph # (Auto) Seg Neutrophils % Seg Neutrophils # D-Dimer ABG pH ABG pO2 124.7 H ABG HCO3 ABG O2 Saturation ABG Base Excess Oxyhemoglobin Sodium Chloride Carbon Dioxide BUN Creatinine Glucose POC Glucose 135 H 120 H Uric Acid Calcium AST Alkaline Phosphatase Total Creatine Kinase CK-MB (CK-2) Troponin T C-Reactive Protein Albumin HDL Cholesterol Urine WBC (Auto) Urine Creatinine Salicylates Acetaminophen 03/02/22 03/02/22 03/03/22 19:52 23:21 04:03 WBC MCV 103 H MCH 35 H RDW 16.1 H Plt Count Lymph % (Auto) [place] % (Auto) Eos % (Auto) Lymph # (Auto) Seg Neutrophils % Seg Neutrophils # D-Dimer ABG pH ABG pO2 ABG HCO3 ABG O2 Saturation ABG Base Excess Oxyhemoglobin Sodium Chloride Carbon Dioxide BUN Creatinine Glucose POC Glucose 115 H 112 H Uric Acid Calcium AST Alkaline Phosphatase Total Creatine Kinase CK-MB (CK-2) Troponin T C-Reactive Protein Albumin HDL Cholesterol Urine WBC (Auto) Urine Creatinine Salicylates Acetaminophen 03/03/22 03/03/22 03/03/22 04:03 04:05 07:31 WBC MCV MCH RDW Plt Count Lymph % (Auto) [place] % (Auto) Eos % (Auto) Lymph # (Auto) Seg Neutrophils % Seg Neutrophils # D-Dimer ABG pH ABG pO2 ABG HCO3 ABG O2 Saturation ABG Base Excess Oxyhemoglobin Sodium Chloride Carbon Dioxide BUN Creatinine Glucose 107 H POC Glucose 113 H 124 H Uric Acid Calcium AST Alkaline Phosphatase Total Creatine Kinase CK-MB (CK-2) Troponin T C-Reactive Protein Albumin HDL Cholesterol Urine WBC (Auto) Urine Creatinine Salicylates Acetaminophen 03/03/22 03/04/22 03/04/22 11:06 08:02 12:53 WBC MCV MCH RDW Plt Count Lymph % (Auto) [place] % (Auto) Eos % (Auto) Lymph # (Auto) Seg Neutrophils % Seg Neutrophils # D-Dimer ABG pH ABG pO2 ABG HCO3 ABG O2 Saturation ABG Base Excess Oxyhemoglobin Sodium Chloride Carbon Dioxide BUN Creatinine Glucose 103 H POC Glucose 124 H 115 H Uric Acid Calcium 10.3 H AST Alkaline Phosphatase Total Creatine Kinase CK-MB (CK-2) Troponin T C-Reactive Protein Albumin HDL Cholesterol Urine WBC (Auto) Urine Creatinine Salicylates Acetaminophen 03/04/22 03/05/22 03/05/22 21:45 06:34 06:34 WBC MCV 103 H MCH 35 H RDW 15.6 H Plt Count 532 H Lymph % (Auto) 36.2 H [place] % (Auto) 10.0 H Eos % (Auto) 5.1 H Lymph # (Auto) Seg Neutrophils % Seg Neutrophils # D-Dimer ABG pH ABG pO2 ABG HCO3 ABG O2 Saturation ABG Base Excess Oxyhemoglobin Sodium Chloride Carbon Dioxide BUN Creatinine Glucose 110 H POC Glucose 136 H Uric Acid Calcium AST Alkaline Phosphatase Total Creatine Kinase CK-MB (CK-2) Troponin T C-Reactive Protein Albumin HDL Cholesterol Urine WBC (Auto) Urine Creatinine Salicylates Acetaminophen Allied health notes reviewed: nursing
[2022-03-05 12:40] VITALS: BP 126/87
--- NOTE | 2022-03-05 13:35 | Discharge Summary ---
Providers - Providers Date of Admission: 03/01/22 00:08 Date of discharge: 03/05/22 Attending physician: NELLIE SAWYER 02/28/22 23:52 Consult to Physician [CONS] Urgent Comment: Consulting Provider: ANIA SHER Physician Instructions: Reason For Exam: ICU admit/on vent 03/01/22 00:08 Consult to Dietitian/Nutrition [CONS] Routine Physician Instructions: Reason For Exam: Reason for Consult: Diet education Consult to Physician [CONS] Routine Comment: spoke to the doctor/ [place] Consulting Provider: CHARLOTTE SRINIVASAN Physician Instructions: Reason For Exam: TABATHA 03/01/22 07:53 Consult to Dietitian/Nutrition [CONS] Routine Physician Instructions: Reason For Exam: Reason for Consult: Write/Manage Tube Feeding 03/01/22 12:18 Consult to Physician [CONS] Routine Comment: noted/ [place] Consulting Provider: JUANJO EUGENE Physician Instructions: Reason For Exam: NSTEMI 03/03/22 09:12 Occupational Therapy Evaluate and Treat [CONS] Routine Comment: Reason For Exam: Debility Physical Therapy Evaluation and Treat [CONS] Routine Comment: Reason For Exam: Debility 03/03/22 10:21 Occupational Therapy Evaluate and Treat [CONS] Urgent Comment: Reason For Exam: Post extubation / potential discharge Physical Therapy Evaluation and Treat [CONS] Urgent Comment: Reason For Exam: Post extubation / potential discharge Primary care physician: AHMET SAN Hospitalization Reason for admission: Acute hypoxic respiratory failure/toxic metabolic encephalopathy Condition: Stable Pertinent studies: Chest x-ray was unremarkable. Head CT scan also unremarkable. VQ scan was low probability for pulmonary embolism. Stress test negative negative for ischemia, mildly decreased LVEF 42% Lower extremity venous Doppler negative for DVT Echocardiogram EF 40 to 45% Procedures: Intubation Extubation Hospital course: This is a 47-year-old male with history of drug abuse and possible open heart surgery 25 years admitted for AMS and acute hypoxic respiratory failure requiring ventilatory support Altered mental status History of present illness: 47-year-old male with no significant past medical history brought into the emergency room today via EMS for changes in mental status. Patient was said to have been found by family at home unresponsive. EMS was therefore called. Blood glucose was found to be 25, patient was admitted D50 and Narcan 4 mg. Patient became more arousable and combative. According to family, patient has known history of drug abuse. Upon arrival in the emergency room, patient was found to be febrile back with and had to be restrained. Patient later became hypoxic and placed on nonrebreather and subsequently had to be intubated. Work-up in the emergency room today, labs reveals a D-dimer 649, creatinine of 1.7, troponin of 0.055, UDS was positive for cocaine. Chest x-ray was unremarkable. Head CT scan also unremarkable. VQ scan was low probability for pulmonary embolism. Discharge diagnosis: Acute Hypoxic Respiratory Failure - most likely due to drug abuse, found unresponsive at home, UDS +cocaine - Patient was hypoxic in the ED, SPO2 in the 80s on NRB - Intubated in the ED on 03/01 - 03/03 extubated, now stable on RA - CCM consulted, appreciate recommendations - Aspiration precaution HOB above 30 - PRN O2 supplementation - Continue SPO2 monitoring for SPO2 goal above 92% Acute Toxic metabolic encephalopathy-resolved Cocaine Abuse - Found unresponsive at home by family - Per EMS BG was in the 20s in the field s/p D50w - Continue Hypoglycemic protocol - UDS +cocaine - CT Brain/brain with no acute intracranial abnormality. - Wile awake, following commands this am - Avoid benzodiazepine to reduce the possibility of delirium - PRN analgesia for CPOT greater than 3 - Maintenance of sleep-wake cycle - Substance abuse cessation education provided and detox resources offered. - Patient verbalized understanding of info provided and stated "he is done with drugs" and refused resources at this time NSTEMI - Presented with elevated troponin - EKG reviewed with ST, HR in the 100s, no significant ST changes - Cardiology following, appreciated recommendations - Continue Heparin SubQ for VTE proh - Continue blood pressure monitor per protocol - Maintain MAP above 65 Acute Kidney Injury(TABATHA) -Etiology secondary to vasomotor nephropathy/prerenal - Nephrology consulted, appreciated recommendations - Strict intake and output - Avoid nephrotoxic medications; Renally dose medications - Monitor and replace electrolytes as needed Hyponatremia-improved Fevers-resolved - Probably due to substances abuse, however infectious process can't be excluded - Afebrile this am, WBCs and lactic wnr - UA with elevated WBCs, neg nitrates and small leukocytes - Cultures and Procal noted - Continue empiric IV abx for now - Continue to F/U cultures - Daily CBC monitor - Consider D/C IV antibiotics if cultures are negative Hypoglycemia-resolved - Per EMS BG was in the 20s in the field s/p D50w - Continue Hypoglycemic protocol - BG check ACHS - Avoid hypoglycemia Elevated D-Dimer - VQ scan was low probability for pulmonary embolism - BLE doppler negative DVT - Heparin subQ for VTE proph GI/DVT Prophylaxis - PPI- Pepcid - Heparin subQ - SCDs to bilateral lower extremities while in bed Hospital Course to Date: 03/01: Patient seen and examined at the bedside. Intubated, off sedation this am. Remains lethargic but arousable, following simple commands. Keep sedation off for now, plan for possible PSV trial when more awake. Patient hypoglycemic this am, IVF switched to D5NS, BG check Q4hrs. Elevated TroponinX2, Cardiology consulted for NSTEMI, continue to trend cardiac enzymes. Nephrology is also following for TABATHA, continue IVF rehydration for now. 03/02: Remains intubated, off sedation, following commands and appropriate. Patient is tolerating PSV trial this am, possible extubation today. Empiric IV abx was initiated yesterday due to high fevers. Fever improved this am and patient remains hemodynamically stable. Continue IV Abx for now, blood cultures and procal pending. Renal function improved this am, 2D echo pending. Continue to monitor renal function and electrolytes, replete as needed. Nephrology is also following. 03/03: s/p extubation now stable on RA. C/o of generalized weakness, otherwise in no acute distress. PT/OT eval and treat ordered. Renal function normalized, monitor and replete electrolytes as needed. Remains on IV abx X5days, procal noted, blood cultures still pending. Patient remains afebrile and hemodynamically stable. Consider D/C IV antibiotics if cultures are negative. Patient is stable for transfer to the floor. 03/04: Echocardiogram reveals left ventricular size normal with systolic function mildly decreased moderate hypokinesis with paradoxical septal motion wall abnormalities consistent with conduction abnormality. Left ventricular diastolic function is normal. LVEF 40-45%. Right ventricle also hypokinetic. Continue baby aspirin and statin. Avoid beta-blockers due to cocaine use. Cardiology to consider DEBI/ARB if renal function remains stable. Await Lexiscan results this morning. Blood culture still pending. If blood cultures remain negative x48 hours will likely discontinue empiric antibiotics. Anticipate discharge next 24-48 hours. PT/OT evaluation. Disposition: HOME / SELF CARE / HOMELESS Final Discharge Diagnosis (Prints w/discharge instructions): Acute hypoxic respiratory failure requiring intubation. Extubation. Acute kidney injury/vasomotor nephropathy/resolved. Non-ST elevation WI. Hypoglycemia resolved. Elevated D-dimers[VQ scan low probability for PE. Bilateral lower extremity venous Doppler negative for DVT Time spent for discharge: 35 minutes Core Measure Documentation - Palliative Care Palliative Care/ Comfort Measures: Not Applicable - Core Measures Any of the following diagnoses?: none Exam - Constitutional Vitals: Temp Pulse Resp BP Pulse Ox 98.7 F 65 18 126/87 99 03/05/22 11:42 03/05/22 11:42 03/05/22 11:42 03/05/22 11:42 03/05/22 11:42 General appearance: Present: no acute distress, well-nourished - EENT Eyes: Present: PERRL, EOM intact - Neck Neck: Present: supple, normal ROM - Respiratory Respiratory effort: normal Respiratory: bilateral: diminished, negative: rales, rhonchi, wheezing - Cardiovascular Rhythm: regular Heart Sounds: Present: S1 & S2 - Extremities Extremities: no ischemia, No edema - Abdominal General gastrointestinal: Present: soft, non-tender, non-distended, normal bowel sounds - Musculoskeletal Musculoskeletal: strength equal bilaterally - Psychiatric Psychiatric: appropriate mood/affect, cooperative - Neurologic Neurologic: moves all extremities Plan Activity: advance as tolerated, fall precautions Diet: regular Additional Instructions: Advised to follow-up with Dr. Eugene, [facility] authorization specialist, 1 to 2 weeks after discharge. Phone #[phone]. Follow-up type proof reproducer Dr. Franco in 1 to 2 weeks. If you have worsening symptoms contact MD or go to the nearest emergency room as needed. Advised to quit recreational drug use Follow up with: AHMET SAN MD [Primary Care Provider] - 3-5 Days JUANJO EUGENE MD [Staff Physician] - 7 Days TAMMI FRANCO MD [Staff Physician] - 7 Days Prescriptions: Aspirin EC [Halfprin EC] 81 mg PO QDAY #30 tablet. AtorvaSTATin [Lipitor] 40 mg PO QHS #30 tab Famotidine [Pepcid] 20 mg PO BID #30 tablet
[2022-03-05 14:40] LABS: Albumin 3.7 g/dL (3.8-4.8); Gamma Globulin 1.3 g/dL (0.8-1.7)
--- NOTE | 2022-03-05 18:23 | Electrocardiograph Report ---
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
[2022-03-07 12:27] LABS: ANA Screen, IFA Negative (Negative)
[2022-03-07 17:14] LABS: Myeloperoxidase Antibody <1.0 AI (<1.0)
== END 2022-03-05 16:02 | disposition home or self-care (01) | DRG 208 ==
LOC: ED 19:24 → CC1 03-01 00:08 → 3A 03-03 11:59
PROVIDERS: ADMIT Internal Medicine Geriatric Medicine; ATTEND Internal Medicine
PROC: 4A033R1 Measurement of Arterial Saturation, Peripheral, Percutaneous Approach (ICD-10-PCS; principal; 2022-02-28)
PROC: 5A1945Z Respiratory Ventilation, 24-96 Consecutive Hours (ICD-10-PCS; 2022-02-28)
PROC: 0BH17EZ Insertion of Endotracheal Airway into Trachea, Via Natural or Artificial Opening (ICD-10-PCS; 2022-02-28)
DX: J96.01 Acute respiratory failure with hypoxia (principal); G92.8 Other toxic encephalopathy; I21.4 Non-ST elevation (NSTEMI) myocardial infarction; E43 Unspecified severe protein-calorie malnutrition; N17.9 Acute kidney failure, unspecified; E87.1 Hypo-osmolality and hyponatremia; I42.9 Cardiomyopathy, unspecified; F14.10 Cocaine abuse, uncomplicated; E16.2 Hypoglycemia, unspecified
CPT/HCPCS: 36415; 36600; 70450; 71045; 74018; 76770; 78452; 78580; 80048; 80053; 80061; 80074; 80307; 80320; 81001; 82140; 82550; 82553; 82570; 82803; 82962; 83735; 83930; 83935; 84145; 84165; 84300; 84439; 84443; 84484; 84550; 85025; 85027; 85379; 85610; 86021; 86038; 86140; 86160; 87040; 87070; 87086; 87205; 93005; 93017; 93306; 93970; 94002; 94003; 94760; G0378; J3490; A9502; A9540; C8929; G0480; J0330; J1630; J1644; J1956; J2001; J2060; J2250; J2704; J3010; J7030; J7042